=== PATIENT | female | born 1950 | race Caucasian/White ===

== ENCOUNTER → 2016-06-11 16:12 | Outpatient (CLI) | payer MEDICARE ==
[~2016-06-11 16:12] MED LIST: ANASTROZOLE1 MG PO; ASPIRIN EC81 M1 PO; BUSPAR5 MG PO; COLACE100 MG PO; DIFLUCAN100 MG PO; EFFEXOR XR150 MG PO; EFFEXOR XR75 MG PO; ELIQUIS5 MG PO; HYDROCODON-ACE1 EAC7 PO; MIRALAX17 GM PO; NEURONTIN 300300 MG PO; PROPRANOLOL HCL20 MG PO; SYNTHROID137 MCG PO
[2016-07-01 12:01] VITALS: BMI 36.1
== END | disposition home or self-care (01) ==
LOC: D.MRI 16:12
DX: M54.5 Low back pain (principal)

== ENCOUNTER 2016-06-13 18:32 | Inpatient (IN) | payer MEDICARE ==
[~2016-06-13] VITALS: Ht 165.1 cm; Wt 98.6 kg
--- NOTE | ~2016-06-13 | HEMODYNAMI ---
PATIENT:MICHELLE WALTER MEDICAL RECORD: [id number] : 52 LOCATION:[facility] ADMISSION DATE: 06/13/16 Generatedon:06/14/201616:38 Patient name: MICHELLE WALTER Patient #: [id number] SSN: : 1950 Date of study: 06/14/2016 Page: Of Hemodynamic Procedure Report Patient Data Patient Demographics Procedure consent was obtained First Name: MICHELLE Gender: Female Last Name: JOSE ANGEL : 1950 [facility] Initial: Krunal Age: 65 year(s) Patient #: [id number] Race: Unknown Additional ID: [id number] Contact details [address]: [address] [place] [address] [address] State: [place] City: [place] Zip code: [address] Admission Admission Data Admission Date: 06/13/2016 Admission Time: 18:32 Room #: [facility] Procedure Procedure Types Cath Procedure Peripheral Cath Diagnostic Procedure Miscellaneous Procedure Description Procedure Date Procedure Date: 06/14/2016 Procedure Start Time: 15:06 Procedure Staff Name Function Sumit Oakley MD Performing Physician Sophia Veloz RT Scrub Camille Mejia RN Nurse Willard Lawrence RT Monitor Procedure Data Cath Procedure Fluoroscopy Diagnostic fluoroscopy Total fluoroscopy Time: time: 112.7 min 112.7 min Diagnostic fluoroscopy Total fluoroscopy dose: dose: 466.29 mGy 466.29 mGy Contrast Material Contrast Material Type Amount (ml) Isovue 300 122 Entry Location Entry Primary Successful Side Size Upsize 1 Upsize Entry Closure Gonsales ccessful Closure Location (Fr) (Fr) 2 (Fr) Remarks Device Remarks Femoral Right 5 Fr 6 Fr artery Mid-Length Diagnostic catheters Device Type Used For End Catheter Placement Merit ULTRA BOLUS FLUSH 5Fr 65CM catheter Procedure Medications Medication Administration Route Dosage Oxygen NC 3 l/min Heparin Flush Bag added to field 3 bags (1000units/500ml NS) Lidocaine 1% added to field 20 Versed I.V. 2 mg Fentanyl I.V. 50 mcg Heparin Bolus I.V. 5000 units Versed I.V. 1 mg Fentanyl I.V. 50 mcg Fentanyl I.V. 50 mcg Fentanyl I.V. 50 mcg Versed I.V. 1 mg TPA 10 Versed I.V. 1 mg Fentanyl I.V. 50 mcg TPA 1 mg/hr Heparin Drip 500 units/hr (88673hmzin/250 D5W) Versed I.V. 1 mg Fentanyl I.V. 50 mcg TPA 4 mg Hemodynamics Rest Heart Rate: 76 (bpm) Snapshots Pre Cath Intra NCS Post Cath Vital Signs Time Heart Resp SPO2 NIBP (mmHg) Rhythm Pain Status Sedation Rate (ipm) (%) Level (bpm) 15:00:40 83 37 96 156/74(122) NSR 9 (11) , 10(A) Excruciating unbearable 15:05:04 78 16 99 144/86(120) NSR 3 (11) , 10(A) Tolerable 15:09:24 80 13 98 135/77(105) NSR 3 (11) , 10(A) Tolerable 15:13:45 83 14 95 120/76(93) NSR 0 (11) , No 9(A) pain 15:18:02 82 14 96 120/72(95) NSR 0 (11) , No 9(A) pain 15:22:23 83 14 97 115/72(88) NSR 0 (11) , No 9(A) pain 15:26:39 83 17 99 123/83(96) NSR 0 (11) , No 9(A) pain 15:30:59 82 13 100 128/77(91) NSR 0 (11) , No 9(A) pain 15:35:23 82 14 99 125/73(90) NSR 0 (11) , No 9(A) pain 15:40:22 83 17 99 124/90(97) NSR 0 (11) , No 9(A) pain 15:44:50 81 17 100 127/50(106) NSR 0 (11) , No 9(A) pain 15:49:09 79 16 100 125/84(114) NSR 0 (11) , No 9(A) pain 15:53:26 75 16 100 143/83(117) NSR 0 (11) , No 9(A) pain 15:57:51 77 17 99 145/86(123) NSR 0 (11) , No 9(A) pain 16:02:21 76 17 99 141/75(120) NSR 0 (11) , No 9(A) pain 16:06:43 77 16 100 154/89(118) NSR 0 (11) , No 9(A) pain 16:11:42 83 14 100 Measuring NSR 0 (11) , No 9(A) pain 16:12:36 79 18 100 155/86(127) NSR 0 (11) , No 9(A) pain 16:17:04 75 17 96 137/95(123) NSR 0 (11) , No 9(A) pain 16:21:24 79 14 98 152/93(129) NSR 0 (11) , No 9(A) pain 16:25:56 78 14 98 133/77(121) NSR 0 (11) , No 9(A) pain 16:30:17 80 18 98 144/94(108) NSR 0 (11) , No 9(A) pain 16:38:16 No Cuff NSR 0 (11) , No 9(A) pain Medications Time Medication Route Dose Verified Delivered Reason Notes Effectiveness by by 15:04:13 Oxygen NC 3 l/min Camille Camille Per protocol King TAMMY Mejia RN 15:04:26 Heparin Flush added to 3 bags Camille Camille used for Bag field King TAMMY Mejia RN procedure (1000units/500ml NS) 15:04:37 Lidocaine 1% added to 20ml vial Camille Camille for local field King TAMMY Mejia RN anesthetic 15:04:52 Versed I.V. 2 mg Camille Camille for sedation King TAMMY Mejia RN 15:04:59 Fentanyl I.V. 50 mcg Camille Camille for right yohana t Roberto TAMMY Mejia RN pain 15:09:27 Fentanyl I.V. 50 mcg Camille Camille for right yohana t King TAMMY Mejia RN pain 15:17:45 Heparin Bolus I.V. 5000 units Camille Camille for King TAMMY Mejia RN anticoagulation 15:17:52 Versed I.V. 1 mg Camille Camille for sedation King TAMMY Mejia RN 15:17:56 Fentanyl I.V. 50 mcg Camille Camille for sedation King TAMMY Mejia RN 15:30:21 Fentanyl I.V. 50 mcg Camille Camille for sedation King TAMMY Mejia RN 15:38:53 Versed I.V. 1 mg Camille Camille for sedation King TAMMY Mejia RN 15:54:40 TPA angiojet 10mg/100mlNS Camille Sumit used for Roberto TAMMY Oakley MD procedure 16:13:27 Versed I.V. 1 mg Camille Sumit for sedation King TAMMY Oakley MD 16:13:31 Fentanyl I.V. 50 mcg Camille Sumit for right yohana t King TAMMY Oakley MD pain 16:14:35 TPA via 4mg Camille Sumit used for catheter King TAMMY Oakley MD procedure right leg 16:22:12 Versed I.V. 1 mg Camille Camille for sedation King TAMMY Mejia RN 16:22:16 Fentanyl I.V. 50 mcg Camille Camille for right yohana t King TAMMY Mejia RN pain 16:28:03 TPA via 1mg/hr Camille Camille used for catheter King TAMMY Mejia studio technician right leg 16:28:35 Heparin Drip via left 500units/hr Camille Camille used for ([id number]/250 leg King TAMMY Mejia studio technician D5W) sheath Procedure Log Time Note 14:46:51 Willard Lawrence RT (R) (CV) sent for patient. Start room use. 14:47:02 Time tracking: Call back 14:47:07 Plan of Care:Hemodynamics will remain stable., Cardiac rhythm will remain stable., Comfort level will be maintained., Respiratory function will remain adequate., Patient/ family verbilizes understanding of procedure., Procedure tolerated without complication., Recovers from procedure without complications.. 14:47:23 Patient received from Med II to Alert and oriented. Tansferred to table in Supine position. 14:47:25 Correct patient and procedure confirmed by team. 14:47:26 ECG and BP/O2 sat monitors applied to patient. 14:47:27 Signed procedure consent form obtained from patient. 14:47:29 Full Disclosure recording started 14:47:29 - 14:47:36 H&P Date Dictated: 06/14/2016 Within 30 days and on chart.. 14:47:37 Pre-procedure instructions explained to patient. 14:47:37 Pre-op teaching completed and patient verbalized understanding. 14:47:39 Family in waiting room. 14:47:42 Patient NPO since Midnight. 14:47:44 Is the patient allergic to Iodine/contrast media? No. 14:47:48 Is patient on blood thinner?No 14:47:49 Patient diabetic? No. 14:47:50 - 14:47:51 ----Pre-sedation anethsthesia assessment.---- 14:47:54 Previous problem with sedation/anesthesia? No ? 14:47:55 Snore? Yes 14:47:56 Sleep apnea? No 14:47:58 Deviated septum? No 14:48:00 Opens mouth fully? No 14:48:03 Sticks out tongue? Yes 14:48:06 Airway obstruction? No ? 14:48:13 Dentures? No ? 14:48:22 Pre procedure: right dorsailis pedis pulse 0-Absent 14:48:27 Pre procedure: right posterior tibial pulse Doppler 14:48:31 Pre procedure: left dorsailis pedis pulse Doppler 14:48:35 Pre procedure: left posterior tibial pulse Doppler 14:48:40 Patient pain scale 0/10 no pain. 14:48:46 IV patent on arrival in right hand with 0.9% NaCl at [facility]. 14:48:51 Alarms reviewed by R. N. 14:48:51 Sharps counted by scrub and verified by R.N. 14:48:56 Left groin area was prepped with chlora-prep and draped in sterile fashion 14:49:01 Use device set IR Diagnostic 14:49:02 Bag Decanter opened to sterile field. 14:49:02 Sterile Angiographic Pack opened to sterile field. 14:54:38 Vital chart was started 15:01:53 Baseline sample Acquired. 15:01:58 Rhythm: sinus rhythm 15:03:29 Physician arrived 15:03:29 --------ALL STOP TIME OUT------ 15:03:30 Final Timeout: patient, procedure, and site verified with staff and physician. All members of the team are in agreement. 15:03:33 Left groin site verified by team. 15:03:39 Physical assessment completed. ASA score P 3 - A patient with severe systemic disease as per Sumit Oakley MD. 15:03:43 Sedation plan: IV Moderate Sedation Versed, Fentanyl 15:04:13 Oxygen 3 l/min NC was given by Camille Mejia RN; Per protocol; 15:04:26 Heparin Flush Bag (1000units/500ml NS) 3 bags added to field was given by Camille Mejia RN; used for procedure; 15:04:37 Lidocaine 1% 20ml vial added to field was given by Camille Mejia RN; for local anesthetic; 15:04:52 Versed 2 mg I.V. was given by Camille Mejia RN; for sedation; 15:04:59 Fentanyl 50 mcg I.V. was given by Camille Mejia RN; for right foot pain; 15:06:32 Procedure started. 15:06:43 Local anesthetic to left femerol artery with Lidocaine 1% by Willard Lawrence RT (R) (CV).INITIAL ACCESS ONLY 15:06:53 A 5 Fr sheath was inserted into the Right Femoral artery 15:07:05 St Drew 5FR Sheath opened to sterile field. 15:07:06 Micropuncture VSI 4FR kit opened to sterile field. 15:07:07 Cook DOC .035 guide wire opened to sterile field. 15:07:13 A [employer] ULTRA BOLUS FLUSH 5Fr 65CM catheter was advanced over the wire and used for . 15:09:27 Fentanyl 50 mcg I.V. was given by Camille Mejia RN; for right foot pain; 15:15:24 Cook SINGH 260 guide wire opened to sterile field. 15:15:25 Cook SHELTONRUSTACI 260 .035 glide wire opened to sterile field. 15:17:45 Heparin Bolus 5000 units I.V. was given by Camille Mejia RN; for anticoagulation; 15:17:52 Versed 1 mg I.V. was given by Camille Roberto RN; for sedation; 15:17:56 Fentanyl 50 mcg I.V. was given by Camille Mejia RN; for sedation; 15:20:06 TUBING, CONTRAST INJCTN HI PRES opened to sterile field. 15:27:31 Sheath upsized to a 6 Fr Mid-Length. 15:27:34 Terumo 6Fr Horton Destination Sheath opened to sterile field. 15:30:21 Fentanyl 50 mcg I.V. was given by Camille Mejia RN; for sedation; 15:34:27 Terumo ANGLE 260cm glide wire opened to sterile field. 15:36:05 Terumo TORQUE DEVICE PLASTIC .038 opened to sterile field. 15:38:53 Versed 1 mg I.V. was given by Camille Mejia RN; for sedation; 15:39:02 CXI SUPPORT .035 135 CM STR catheter opened to sterile field. 15:46:14 Cook Bentson 260cm 0.035 guide wire opened to sterile field. 15:47:09 Angiojet Solent Omni 6Fr Catheter opened to sterile field. 15:54:40 TPA 10mg/100mlNS angiojet was given by Sumit Oakley MD; used for procedure; 16:00:44 CRAGG-MIRYAM 30cm infusion catheter opened to sterile field. 16:00:48 CRAGG-MIRYAM 10cm infusion catheter opened to sterile field. 16:02:09 STOPCOCK, 1-WAY MALE ROTATE LL C opened to sterile field. 16:02:10 Copilot Bleedback Control Valve opened to sterile field. 16:03:43 [place] Sci Choice PT Floppy J 300cm 0.014 guide wi opened to sterile field. 16:12:33 Procedure ended.(Physican Out) 16:13:27 Versed 1 mg I.V. was given by Sumit Oakley MD; for sedation; 16:13:31 Fentanyl 50 mcg I.V. was given by Sumit Oakley MD; for right foot pain ; 16:13:44 Fluoroscopy time 112.70 minutes. 16:14:11 Fluoroscopy dose: 466.29 mGy 16:14:11 Flurop Dose total: 466.29 16:14:35 TPA 4mg via catheter right leg was given by Sumit Oakley MD; used for procedure; 16:14:39 Contrast amount:Isovue 300 122ml. 16:14:41 Sharps counted by scrub and verified by R.N. 16:14:42 Insertion/operative site no bleeding no hematoma. 16:14:50 Post-op/insertion site Left Femoral artery dressed using a 4 x 4 and Tegaderm. 16:14:54 Post left femerol artery:stable 16:14:56 Post Procedure Pulses reassessed and unchanged 16:15:03 Post-procedure physical assessment completed. ASA score P 3 - A patient with severe systemic disease as per Sumit Oakley MD. 16:22:12 Versed 1 mg I.V. was given by Camille Mejia RN; for sedation; 16:22:16 Fentanyl 50 mcg I.V. was given by Camille Mejia RN; for right foot pain; 16:28:03 TPA 1mg/hr via catheter right leg was given by Camille Mejia RN; used for procedure; 16:28:35 Heparin Drip (78369heyoi/250 D5W) 500units/hr via left leg sheath was given by Camille Mejia RN; used for procedure; 16:30:33 Post procedure instruction explained to patient.Patient verbalizes understanding. 16:30:34 Procedure and supply charges have been captured, reviewed, submitted an d are correct. 16:38:07 Report given to ICU. 16:38:10 Patient transfered to ICU with Bed. 16:38:56 Vital chart was stopped Device Usage Item Name Manufacture Quantity Catalog Number Hospital Part Current [facility] Lot# / Charge Number Stock Stock Serial# Code Bag Decanter Microtek 1 [id number] 37074 880880 5 Medical Inc. Sterile Cardinal 1 [id number] 162288 984494 [address] Drew [address] [facility] Drew 1 [id number] 976572 428073 5 [id number] Sheath Micropuncture VSI VASCULAR 1 [id number] 730289 314995 5 VSI 4FR kit SOLUTIONS Cook DOC .035 Cook Medical 1 [id number] 364876 585692 5 [id number] guide wire Merit ULTRA Merit 1 [id number] 398036 296027 5 BOLUS FLUSH Medical 5Fr 65CM catheter Cook SINGH 260 Cook Medical 1 [id number] 844759 240123 5 [id number] guide wire Cook [place] [facility] 1 [id number] 477745 611904 [id number] 260 .035 glide wire TUBING, Merit 1 [id number] 463023 644387 551635 5 CONTRAST Medical INJCTN HI PRES Terumo 6Fr Terumo 1 RSR01 660283 68574 113570 5 Horton Destination Sheath Terumo ANGLE Terumo 1 [id number] 563477 473400 151057 5 260cm glide wire Terumo TORQUE [place] 1 TD01 015562 216887 157994 5 DEVICE PLASTIC Scientific .038 CXI SUPPORT [facility] 1 [id number] 273072 380528 5 [id number] .035 135 CM STR catheter Cook Savoyson [facility] 1 Q10546 872425 147168 369955 4 1955400 260cm 0.035 guide wire Angiojet [place] 1 [id number] 999914 362479 720774 1 Solent Omni Scientific 6Fr Catheter CRAGG-MIRYAM Ev3 1 99804-66 372395 469528 5 30cm infusion catheter CRAGG-MIRYAM Ev3 1 06942-41 495216 191850 5 10cm infusion catheter STOPCOCK, Narrable 1 [id number] 484920 43093 037830 5 [id number] 1-WAY MALE ROTATE LL C Copilot Ni 1 [id number] 797158 022489 493131 5 Bleedback Vascular Control Valve [place] Sci [place] 1 [id number] 168316 344932 208590 5 [id number] Choice PT Scientific Floppy J 300cm 0.014 guide wi Signature Audit [place] Stage Time Signature Unsigned Intra-Procedure 06/14/2016 Willard 4:38:53 PM Michelleield RT (R) (CV) Signatures Monitor : Willard Signature : Howard RT Date : Time : [facility] [address] [place] [address]
--- NOTE | ~2016-06-13 | HEMODYNAMI ---
PATIENT:MICHELLE WALTER MEDICAL RECORD: [id number] : 52 LOCATION:[place] [address] ADMISSION DATE: 06/13/16 Generatedon:06/16/201616:10 Patient name: MICHELLE WALTER Patient #: [id number] SSN: : 1950 Date of study: 06/16/2016 Page: Of Hemodynamic Procedure Report Patient Data Patient Demographics Procedure consent was obtained First Name: MICHELLE Gender: Female Last Name: JOSE ANGEL : 1950 [facility] Initial: Krunal Age: 65 year(s) Patient #: [id number] Race: Unknown Additional ID: [id number] Contact details Address: [address] [place] [address] [address] State: [place] City: [place] Zip code: [address] Admission Admission Data Admission Date: 06/13/2016 Admission Time: 18:32 Room #: [facility] Weight (lbs.): 226 Weight (kg.): 102.51 Procedure Procedure Types Cath Procedure Peripheral Cath Diagnostic Procedure Cath Peripheral Procedure Description Procedure Date Procedure Date: 06/16/2016 Procedure Start Time: 14:58 Procedure Staff Name Function Kenia Ayoub RT Fiscal Accounting Clerk Kenia Ayoub RT Monitor Willard Lawrence RT Scrub Primitivo Villa MD Performing Physician Sophia Skaggs RN Nurse Procedure Data Cath Procedure Fluoroscopy Diagnostic fluoroscopy Total fluoroscopy Time: time: 3.53 min 3.53 min Contrast Material Contrast Material Type Amount (ml) Isovue 300 95 Entry Location Entry Primary Successful Side Size Upsize Upsize Entry Closure Succ essful Closure Location (Fr) 1 (Fr) 2 (Fr) Remarks Device Remarks Femoral Left Angio-VIP artery 6Fr Procedure Medications Medication Administration Route Dosage Heparin Bolus I.V. 3000 units Versed I.V. 0.5 mg Fentanyl I.V. 25 mcg Versed I.V. 0.5 mg Fentanyl I.V. 25 mcg Nitroglycerin IC/IA I.C. 300 mcg Ancef (1Gm/50ml NS) I.V.P.B 1 g Heparin Bolus I.V. 4000 units Hemodynamics Rest Heart Rate: 86 (bpm) Snapshots Pre Cath Intra NCS Post Cath Vital Signs Time Heart Resp SPO2 NIBP (mmHg) Rhythm Pain Sedation Rate (ipm) (%) Status Level (bpm) 14:06:31 79 19 98 122/62(78) NSR 0 (11) 10(A) , No pain 14:10:42 80 16 98 114/70(92) NSR 0 (11) 10(A) , No pain 14:14:47 81 17 97 108/69(94) NSR 0 (11) 10(A) , No pain 14:18:51 80 17 96 117/67(85) NSR 0 (11) 10(A) , No pain 14:22:59 80 16 97 113/70(82) NSR 0 (11) 10(A) , No pain 14:27:05 80 16 98 112/70(78) NSR 0 (11) 10(A) , No pain 14:31:11 81 16 98 97/70(90) NSR 0 (11) 10(A) , No pain 14:35:49 80 17 99 122/77(85) NSR 0 (11) 10(A) , No pain 14:39:57 80 17 98 125/76(100) NSR 0 (11) 10(A) , No pain 14:44:03 80 17 99 120/76(96) NSR 0 (11) 10(A) , No pain 14:48:10 80 18 99 131/69(96) NSR 0 (11) 10(A) , No pain 14:52:18 81 17 99 132/80(102) NSR 0 (11) 10(A) , No pain 14:56:26 80 16 100 124/81(102) NSR 0 (11) 10(A) , No pain 15:00:32 81 17 100 126/80(113) NSR 0 (11) 10(A) , No pain 15:04:42 80 18 99 124/73(91) NSR 0 (11) 9(A) , No pain 15:08:50 80 17 100 119/76(97) NSR 0 (11) 9(A) , No pain 15:12:53 82 18 99 125/77(99) NSR 0 (11) 9(A) , No pain 15:16:59 81 19 99 125/77(101) NSR 0 (11) 9(A) , No pain 15:21:07 82 18 100 123/77(103) NSR 0 (11) 9(A) , No pain 15:25:13 81 18 98 128/78(94) NSR 0 (11) 9(A) , No pain 15:29:16 81 18 100 130/85(104) NSR 0 (11) 9(A) , No pain 15:33:24 83 18 100 130/78(108) NSR 0 (11) 9(A) , No pain 15:37:36 86 19 97 128/69(116) NSR 0 (11) 9(A) , No pain 15:41:42 84 19 98 121/81(97) NSR 0 (11) 9(A) , No pain 15:45:46 82 20 99 131/78(96) NSR 0 (11) 9(A) , No pain 15:50:30 81 17 100 133/80(104) NSR 0 (11) 9(A) , No pain 15:54:40 83 18 99 144/77(107) NSR 0 (11) 9(A) , No pain 15:59:49 80 12 98 140/79(113) NSR 0 (11) 9(A) , No pain 16:04:00 83 8 145/83(113) NSR 0 (11) 9(A) , No pain 16:08:11 80 8 137/83(100) NSR 0 (11) 9(A) , No pain Medications Time Medication Route Dose Verified Delivered Reason Notes Eff ectiveness by by 14:22:32 Heparin Bolus I.V. 3000 Sophia Sophia Per units Sharifa Skaggs physician RN RN 14:59:56 Versed I.V. 0.5 Sophia Sophia for sedation mg Sharifa Sharifa RN RN 15:00:05 Fentanyl I.V. 25 Sophia Sophia for sedation mcg Sharifa Sharifa MUNOZ RN 15:06:00 Versed I.V. 0.5 Sophia Sophia for sedation mg Sharifa Sharifa MUNOZ RN 15:06:04 Fentanyl I.V. 25 Sophia Sophia for sedation mcg Sharifa Skaggs RN RN 15:32:41 Nitroglycerin I.C. 300 Primitivo Langford for IC/IA mcg Allen young MD, MD 15:47:27 Ancef I.V.P.B 1 g Sophia Sophia Per (1Gm/50ml NS) Sharifa price RN RN 16:00:30 Heparin Bolus I.V. [address] [facility] [facility] 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 13:57:59 Patient received from ICU to [facility] 3 Alert and oriented. Tansferred to table in Supine position. 13:58:02 Correct patient and procedure confirmed by team. 13:58:04 Signed procedure consent form obtained from patient. 13:58:06 - 13:58:12 H&P Date Dictated: 06/16/2016 Within 30 days and on chart.. 13:58:17 Pre-procedure instructions explained to patient. 13:58:18 Pre-op teaching completed and patient verbalized understanding. 13:58:21 Family in waiting room. 13:58:25 Patient NPO since Midnight. 13:58:30 Is the patient allergic to Iodine/contrast media? No. 13:58:34 Is patient on blood thinner?Yes 13:58:37 Patient diabetic? No. 13:59:09 ----Pre-sedation anethsthesia assessment.---- 13:59:13 Previous problem with sedation/anesthesia? No ? 13:59:16 Snore? Yes 13:59:18 Sleep apnea? No 13:59:21 Deviated septum? No 13:59:22 Opens mouth fully? Yes 13:59:24 Sticks out tongue? Yes 13:59:27 Airway obstruction? No ? 13:59:31 Dentures? No ? 14:02:12 Pre procedure: left dorsailis pedis pulse Doppler 14:02:17 Pre procedure: left posterior tibial pulse Doppler 14:02:28 Pre procedure: right posterior tibial pulse Doppler 14:02:33 Pre procedure: right dorsailis pedis pulse 0-Absent 14:02:49 IV patent on arrival in right picc line with 0.9% NaCl at [facility]. 14:03:32 Left groin area was prepped with betadine and draped in sterile fashion 14:03:38 - 14:04:11 ECG and BP/O2 sat monitors applied to patient. 14:04:16 Vital chart was started 14:04:23 Baseline sample Acquired. 14:04:27 Full Disclosure recording started 14:04:28 - 14:04:37 Use device set IR Diagnostic 14:04:39 Sterile Angiographic Pack opened to sterile field. 14:04:41 Bag Decanter opened to sterile field. 14:04:52 - 14:22:32 Heparin Bolus 3000 units I.V. was given by Sophia Skaggs RN; Per physician; 14:55:25 Physician arrived 14:58:03 --------ALL STOP TIME OUT------ 14:58:04 Final Timeout: patient, procedure, and site verified with staff and physician. All members of the team are in agreement. 14:58:22 Sedation plan: IV Moderate Sedation Versed, Fentanyl 14:58:30 Physical assessment completed. ASA score P 3 - A patient with severe systemic disease as per Primitivo Villa MD. 14:58:36 Procedure started. 14:59:56 Versed 0.5 mg I.V. was given by Sophia Skaggs RN; for sedation; 15:00:05 Fentanyl 25 mcg I.V. was given by Sophia Skaggs RN; for sedation; 15:05:52 CXI SUPPORT .035 135 CM STR catheter opened to sterile field. 15:05:[address] .035 glide wire opened to sterile field. 15:06:00 Versed 0.5 mg I.V. was given by Sophia Skaggs RN; for sedation; 15:06:04 Fentanyl 25 mcg I.V. was given by Sophia Skaggs RN; for sedation; 15:12:11 [place] Sci Choice PT Floppy J 300cm 0.014 guide wi opened to sterile field. 15:17:16 CXI SUPPORT .018 150CM STR catheter opened to sterile field. 15:23:13 [place] Sci Choice PT Floppy J 300cm 0.014 guide wi opened to sterile field. 15:32:41 Nitroglycerin IC/IA 300 mcg I.C. was given by Primitivo Villa MD; for vasodilation; 15:41:20 Inflation number: 1 A Saber 2.5 X 100 X 150 balloon was prepped and advanced across the Undefined1, then inflated to 18 STEPHANIE for 0:09 (min:sec). 15:41:43 Merit INFLATION SYRINGE opened to sterile field. 15:47:27 Ancef (1Gm/50ml NS) 1 g I.V.P.B was given by Sophia Skaggs RN; Per physician; 15:52:09 Cook RLJ EntertainmentSON 145cm guide wire opened to sterile field. 15:56:25 ANGIOSEAL-VIP PLUS 6 FR opened to sterile field. 15:56:59 Sheath removed intact; hemostasis achieved with Angio-VIP 6Fr to the Left Femoral artery. 15:56:59 A sheath was inserted into the Left Femoral artery 15:57:04 Procedure ended.(Physican Out) 15:57:25 Fluoroscopy time 03.53 minutes. 15:57:34 Contrast amount:Isovue 300 95ml. 15:57:40 Procedure and supply charges have been captured, reviewed, submitted an d are correct. 16:00:30 Heparin Bolus 4000 units I.V. was given by Sophia Skaggs RN; Per physician; 16:10:29 Vital chart was stopped Intervention Summary Intervention Notes Time ActionType Lesion and Equipment Action# Pressure Duration Attributes Used 15:41:20 Inflate Undefined1 Saber 2.5 1 18 00:09 balloon X 100 X 150 balloon Device Usage Item Name Manufacture Quantity Catalog Number Hospital Part Current Min imal Lot# / Charge Number Stock Stock Serial# Code Sterile Cardinal 1 [id number] [id number] 5 Angiographic Health Pack Bag Decanter Microtek 1 [id number] 12212 028732 5 Medical Inc. CXI SUPPORT Cook Medical 1 [id number] 249852 301129 5 [id number] .035 135 CM STR catheter Cook Punchd Medical 1 [id number] 155745 687153 5 [id number] [facility] 260 .035 glide wire [place] Sci [place] 2 [id number] 277916 598540 071980 5 Choice PT Scientific Floppy J 300cm 0.014 guide wi CXI SUPPORT Cook Medical 1 [id number] 968287 987178 5 .018 150CM STR catheter Saber 2.5 X Cardinal 1 [id number] 543443 608928 5 100 X 150 Health balloon [facility] Medtronic 1 [id number] 280740 38105 381694 5 INFLATION SYRINGE Cook [facility] Cook Medical 1 [id number] 848110 936854 5 [id number] 145cm guide wire ANGIOSEAL-VIP [facility] 1 [id number] 501111 553061 5 PLUS 6 FR Signature Audit [place] Stage Time Signature Unsigned Intra-Procedure 06/16/2016 Kenia Ayoub 4:10:26 PM RT(R) Signatures Monitor : Kenia Ayoub RT Signature : Date : Time : [facility] [address] [place] [address]
--- NOTE | ~2016-06-13 | HEMODYNAMI ---
PATIENT:MICHELLE WALTER MEDICAL RECORD: [id number] : 52 LOCATION:[place] [address] ADMISSION DATE: 06/13/16 Generatedon:06/15/201610:15 Patient name: MICHELLE WALTER Patient #: [id number] SSN: : 1950 Date of study: 06/15/2016 Page: Of Hemodynamic Procedure Report Patient Data Patient Demographics Procedure consent was obtained First Name: MICHELLE Gender: Female Last Name: JOSE ANGEL : 1950 [facility] Initial: Krunal Age: 65 year(s) Patient #: [id number] Race: Unknown Additional ID: [id number] Contact details Address: [address] [place] [address] [place] State: [place] City: [place] Zip code: [address] Admission Admission Data Admission Date: 06/13/2016 Admission Time: 18:32 Room #: [facility] Procedure Procedure Types Cath Procedure Peripheral Cath Diagnostic Procedure Miscellaneous Procedure Description Procedure Date Procedure Date: 06/15/2016 Procedure Start Time: 9:01 Procedure Staff Name Function Sumit Oakley MD Performing Physician Sophia Veloz RT Scrub Camille Mejia RN Nurse Willard Lawrence RT Monitor Procedure Data Cath Procedure Fluoroscopy Diagnostic fluoroscopy Total fluoroscopy Time: 8.7 time: 8.7 min min Diagnostic fluoroscopy Total fluoroscopy dose: dose: 83.03 mGy 83.03 mGy Contrast Material Contrast Material Type Amount (ml) Visipaque 270 21 Procedure Medications Medication Administration Route Dosage Oxygen NC 3 l/min Heparin Flush Bag added to field 2 bags (1000units/500ml NS) Lidocaine 1% added to field 20 Versed I.V. 1 mg Fentanyl I.V. 50 mcg Versed I.V. 1 mg Fentanyl I.V. 50 mcg Heparin Bolus I.V. 3000 units Nitroglycerin IC/IA I.A. 300 mcg Nitroglycerin IC/IA I.A. 200 mcg Fentanyl I.V. 50 mcg Versed I.V. 1 mg Nitroglycerin IC/IA I.A. 200 mcg Fentanyl I.V. 50 mcg TPA 10 mg Versed I.V. 1 mg Nitroglycerin IC/IA I.A. 50 mcg Fentanyl I.V. 50 mcg Activase(12.5mg/250 10 ml/hr NS) Activase(12.5mg/250 10 ml/hr NS) Fentanyl I.V. 50 mcg Hemodynamics Rest Pre Cath Intra NCS Post Cath Vital Signs Time Heart Resp SPO2 NIBP (mmHg) Rhythm Pain Sedation Rate (ipm) (%) Status Level (bpm) 8:50:59 98 133/80(98) NSR 3 (11) , 10(A) Tolerable 8:55:13 80 10 99 127/80(103) NSR 3 (11) , 10(A) Tolerable 8:59:25 82 10 97 127/78(105) NSR 3 (11) , 10(A) Tolerable 9:03:35 84 9 95 112/74(89) NSR 3 (11) , 10(A) Tolerable 9:07:43 85 10 94 123/79(97) NSR 0 (11) , 9(A) No pain 9:12:01 89 11 94 110/62(80) NSR 0 (11) , 9(A) No pain 9:16:13 89 11 95 117/65(93) NSR 0 (11) , 9(A) No pain 9:20:25 85 9 94 101/71(80) NSR 0 (11) , 9(A) No pain 9:24:31 85 10 96 109/70(89) NSR 0 (11) , 9(A) No pain 9:28:40 86 11 94 108/73(84) NSR 0 (11) , 9(A) No pain 9:32:48 84 12 95 117/74(103) NSR 0 (11) , 10(A) No pain 9:37:02 86 9 95 99/63(87) NSR 0 (11) , 9(A) No pain 9:41:06 85 10 94 110/78(87) NSR 0 (11) , 9(A) No pain 9:46:01 87 12 93 116/77(98) NSR 0 (11) , 10(A) No pain 9:50:13 85 13 96 121/70(104) NSR 0 (11) , 9(A) No pain 9:54:21 83 13 94 119/72(93) NSR 0 (11) , 9(A) No pain 9:58:31 86 12 96 113/74(92) NSR 0 (11) , 9(A) No pain 10:02:40 83 11 94 108/68(84) NSR 0 (11) , 9(A) No pain 10:06:50 84 11 96 101/64(81) NSR 0 (11) , 9(A) No pain 10:11:00 84 11 96 111/61(80) NSR 0 (11) , 10(A) No pain 10:15:10 83 9 92/62(81) NSR 0 (11) , 10(A) No pain Medications Time Medication Route Dose Verified Delivered Reason Notes Effectiveness by by 8:54:39 Oxygen NC 3 l/min Camille Camille Per protocol Roberto TAMMY Roberto TAMMY 8:54:54 Heparin Flush Bag added to 2 bags Camille Camille used for (1000units/500ml field King TAMMY Mejia hangersmith NS) 8:55:05 Lidocaine 1% added to 20ml Camille Camille for local field vial King TAMMY Mejia TAMMY anesthetic 8:55:14 Versed I.V. 1 mg Camille Camille for sedation King TAMMY Mejia TAMMY 8:55:21 Fentanyl I.V. 50 mcg Camille Camille for sedation King TAMMY Mejia TAMMY 9:02:04 Versed I.V. 1 mg Camille Camille for sedation Roberto TAMMY Mejia RN 9:02:09 Fentanyl I.V. 50 mcg Camille Camille for sedation Roberto TAMMY Mejia RN 9:07:21 Heparin Bolus I.V. 3000 Camille Camille for units King TAMMY Mejia RN anticoagulation 9:08:46 Nitroglycerin IC/IA I.A. 300mcg Camille Sumit for King TAMMY Oakley MD vasodilation 9:15:00 Nitroglycerin IC/IA I.A. 200mcg Camille Sumit for King TAMMY Oakley MD vasodilation 9:16:36 Fentanyl I.V. 50 mcg Camille Camille for sedation Roberto TAMMY Mejia RN 9:24:08 Versed I.V. 1 mg Camille Camille for sedation Roberto TAMMY Mejia RN 9:33:18 Nitroglycerin IC/IA I.A. 200mcg Camille Sumit for [place] TAMMY Oakley MD vasodilation 9:33:26 Fentanyl I.V. 50 mcg Camille Camille for sedation King TAMMY Mejia RN 9:43:29 TPA via 10 mg Camille Sumit used for catheter King TAMMY Oakley MD procedure right leg 9:47:17 Versed I.V. 1 mg Camille Sumit for sedation King TAMMY Oakley MD 9:55:24 Nitroglycerin IC/IA I.A. 50mcg Camille Sumit for [place] TAMMY Oakley MD vasodilation 9:57:33 Fentanyl I.V. 50 mcg Camille Sumit for sedation King TAMMY Oakley MD 10:10:53 Activase(12.5mg/250 via 10ml/hr Camille Sumit used for NS) right King TAMMY Oakley MD procedure leg catheter 10:10:55 Activase(12.5mg/250 via 10ml/hr Camille Sumit used for NS) right King TAMMY Oakley MD procedure leg catheter 10:13:39 Fentanyl I.V. 50 mcg Camille Sumit for sedation King TAMMY Oakley MD Procedure Log Time Note 8:36:32 Willard Lawrence RT (R) (CV) sent for patient. Start room use. 8:36:43 Time tracking: Regular hours 8:36:50 Plan of Care:Hemodynamics will remain stable., Cardiac rhythm will remain stable., Comfort level will be maintained., Respiratory function will remain adequate., Patient/ family verbilizes understanding of procedure., Procedure tolerated without complication., Recovers from procedure without complications.. 8:36:56 Patient received from ICU to IR Alert and oriented. Tansferred to table in Supine position. 8:36:57 Correct patient and procedure confirmed by team. 8:36:59 Signed procedure consent form obtained from patient. 8:37:00 ECG and BP/O2 sat monitors applied to patient. 8:37:01 Full Disclosure recording started 8:37:02 - 8:37:07 H&P Date Dictated: 06/15/2016 Within 30 days and on chart.. 8:37:09 Pre-procedure instructions explained to patient. 8:37:09 Pre-op teaching completed and patient verbalized understanding. 8:37:12 Family in waiting room. 8:37:16 Patient NPO since Midnight. 8:37:21 Is the patient allergic to Iodine/contrast media? No. 8:37:25 Is patient on blood thinner?Yes 8:37:37 ACC The patient was administered the following blood thiners within the last 24 hours: ACCHeparin and TPA 8:38:46 Patient diabetic? No. 8:38:50 - 8:38:50 ----Pre-sedation anethsthesia assessment.---- 8:38:57 Previous problem with sedation/anesthesia? No ? 8:39:04 Snore? Yes 8:39:06 Sleep apnea? No 8:39:08 Deviated septum? No 8:39:09 Opens mouth fully? Yes 8:39:10 Sticks out tongue? Yes 8:39:12 Airway obstruction? No ? 8:39:13 Dentures? No ? 8:39:18 Pre procedure: right dorsailis pedis pulse 0-Absent 8:39:21 Pre procedure: left dorsailis pedis pulse Doppler 8:39:26 Pre procedure: right posterior tibial pulse Doppler 8:39:34 Pre procedure: left posterior tibial pulse Doppler 8:39:49 Patient pain scale 0/10 no pain. 8:39:55 IV patent on arrival in right hand with 0.9% NaCl at [facility]. 8:39:58 Alarms reviewed by R. N. 8:39:59 Sharps counted by scrub and verified by R.N. 8:40:04 Left groin area was prepped with betadine and draped in sterile fashion 8:40:09 Use device set IR Diagnostic 8:40:10 Bag Decanter opened to sterile field. 8:40:10 Sterile Angiographic Pack opened to sterile field. 8:41:20 Dr Oakley here. talking with patient and assessing foot. 8:49:56 Vital chart was started 8:54:39 Oxygen 3 l/min NC was given by Camille Mejia RN; Per protocol; 8:54:54 Heparin Flush Bag (1000units/500ml NS) 2 bags added to field was given by Camille Mejia RN; used for procedure; 8:55:05 Lidocaine 1% 20ml vial added to field was given by Camille Mejia RN; for local anesthetic; 8:55:14 Versed 1 mg I.V. was given by Camille Mejia RN; for sedation; 8:55:21 Fentanyl 50 mcg I.V. was given by Camille Mejia RN; for sedation; 9:00:24 --------ALL STOP TIME OUT------ 9:00:25 Final Timeout: patient, procedure, and site verified with staff and physician. All members of the team are in agreement. 9:00:30 Left groin site verified by team. 9:00:35 Physical assessment completed. ASA score P 3 - A patient with severe systemic disease as per Sumit Oakley MD. 9:00:46 Sedation plan: IV Moderate Sedation Versed, Fentanyl, Lidocaine 9:01:12 Procedure started. 9:01:19 Local anesthetic to left femerol artery with Lidocaine 1% by Sumit Oakley MD.INITIAL ACCESS ONLY 9:02:04 Versed 1 mg I.V. was given by Camille Mejia RN; for sedation; 9:02:09 Fentanyl 50 mcg I.V. was given by Camille Mejia RN; for sedation; 9:06:13 Cook Bentson 260cm 0.035 guide wire opened to sterile field. 9:07:21 Heparin Bolus 3000 units I.V. was given by Camille Mejia RN; for anticoagulation; 9:07:26 CXI SUPPORT .035 135 CM STR catheter opened to sterile field. 9:08:46 Nitroglycerin IC/IA 300mcg I.A. was given by Sumit Oakley MD; for vasodilation; 9:11:[address] .035 glide wire opened to sterile field. 9:11:41 Terumo TORQUE DEVICE PLASTIC .038 opened to sterile field. 9:15:00 Nitroglycerin IC/IA 200mcg I.A. was given by Sumit Oakley MD; for vasodilation; 9:16:36 Fentanyl 50 mcg I.V. was given by Camille Mejia RN; for sedation; 9:16:37 [place] Sci Choice PT Floppy J 300cm 0.014 guide wi opened to sterile field. 9:16:45 QuickCat Extraction catheter opened to sterile field. 9:24:08 Versed 1 mg I.V. was given by Camille Mejia RN; for sedation; 9:33:03 Trailblazer 0.035 catheter opened to sterile field. 9:33:18 Nitroglycerin IC/IA 200mcg I.A. was given by Sumit Oakley MD; for vasodilation; 9:33:26 Fentanyl 50 mcg I.V. was given by Camille Mejia RN; for sedation; 9:43:29 TPA 10 mg via catheter right leg was given by Sumit Oakley MD; used fo r procedure; 9:46:49 [place] Sci Choice PT Floppy J 300cm 0.014 guide wi opened to sterile field. 9:47:17 Versed 1 mg I.V. was given by Sumit Oakley MD; for sedation; 9:47:49 STOPCOCK, 1-WAY MALE ROTATE LL C opened to sterile field. 9:47:59 Copilot Bleedback Control Valve opened to sterile field. 9:48:11 CRAGG-MIRYAM 10cm infusion catheter opened to sterile field. 9:51:43 CRAGG-MIRYAM 10cm infusion catheter opened to sterile field. 9:55:24 Nitroglycerin IC/IA 50mcg I.A. was given by Sumit Oakley MD; for vasodilation; 9:57:33 Fentanyl 50 mcg I.V. was given by Sumit Oakley MD; for sedation; 9:58:43 Procedure ended.(Physican Out) 9:59:41 Fluoroscopy time 08.70 minutes. 9:59:52 Fluoroscopy dose: 83.03 mGy 9:59:52 Flurop Dose total: 83.03 9:59:58 Contrast amount:Visipaque 270 21ml. 10:00:00 Sharps counted by scrub and verified by R.N. 10:00:10 Insertion/operative site no bleeding no hematoma. 10:00:14 Post-op/insertion site Left Femoral artery dressed using a 4 x 4 and Tegaderm. 10:00:19 Post left femerol artery:stable 10:00:21 Post Procedure Pulses reassessed and unchanged 10:00:24 Post procedure rhythm: unchanged. 10:01:30 Procedure and supply charges have been captured, reviewed, submitted an d are correct. 10:10:53 Activase(12.5mg/250 NS) 10ml/hr via right leg catheter was given by Sumit Oakley MD; used for procedure; 10:10:55 Activase(12.5mg/250 NS) 10ml/hr via right leg catheter was given by Sumit Oakley MD; used for procedure; 10:11:51 activase infusion split between 2 ports via right leg catheter. 10:13:36 posterior tibial absent on rt.foot 10:13:39 Fentanyl 50 mcg I.V. was given by Sumit Oakley MD; for sedation; 10:14:39 Report given to ICU. 10:14:43 Patient transfered to ICU with Bed. 10:15:34 Vital chart was stopped Device Usage Item Name Manufacture Quantity Catalog Number Hospital Part Current [facility] Lot# / Charge Number Stock Stock Serial# Code Bag Decanter Microtek 1 [id number] 21359 236244 5 Medical Inc. Sterile Cardinal 1 [id number] 865144 611817 5 Angiographic Health Pack [facility] 1 [id number] 058638 045168 697533 4 [id number] 260cm 0.035 guide wire CXI SUPPORT [facility] 1 [id number] 073369 794642 5 [id number] .035 135 CM STR catheter [facility] 1 [id number] 774003 774608 5 [id number] ROADRUNNER 260 .035 glide wire Terumo TORQUE [place] 1 TD01 495723 418375 776648 5 DEVICE PLASTIC Scientific .038 [place] Sci [place] 2 [id number] 435702 842951 776586 5 [id number] Choice PT Scientific [id number] Floppy J 300cm 0.014 guide wi QuickCat [place] 1 77493-83 801962 925918 479447 5 Extraction catheter Trailblazer Medtronic 1 [id number] 20548 349370 5 0.035 catheter STOPCOCK, zumatek Medical 1 [id number] 558793 18890 190349 5 [id number] 1-WAY MALE ROTATE LL C Copilot Ni 1 [id number] 220682 353738 504641 5 Bleedback Vascular Control Valve [facility] 2 33187-46 924149 908277 5 10cm infusion catheter Signature Audit [place] Stage Time Signature Unsigned Intra-Procedure 06/15/2016 Willard 10:15:31 AM Howard RT (R) (CV) Signatures Monitor : Willard Signature : Howard RT Date : Time : [place] [id number] [facility]
--- NOTE | 2016-06-13 18:48 | NUR ---
PT ARRIVED VIA W/C FROM ADMISSIONS. NO DISTRESS NOTED. WILL CONTINUE TO MONITOR.
[2016-06-13] MEDS ORDERED: BUSPAR5 MG PO (19:44)
[2016-06-13] MEDS ORDERED: HYDROCODON-ACE1 EAC7 PO (19:45)
[2016-06-13] MEDS ORDERED: EFFEXOR XR75 MG PO (19:46)
[2016-06-13] MEDS ORDERED: EFFEXOR XR150 MG PO (19:46)
[2016-06-13] MEDS ORDERED: ANASTROZOLE1 MG PO (19:47)
[2016-06-13] MEDS ORDERED: NEURONTIN 300300 MG PO (19:48)
[2016-06-13] MEDS ORDERED: PROPRANOLOL HCL20 MG PO (19:48)
[2016-06-13] MEDS ORDERED: SYNTHROID137 MCG PO (19:50)
[2016-06-13 20:35] LABS: BASOPHILS 0.3 % (0.0-2.0); EOSINOPHILS 1.8 % (0-7); IMMATURE GRANULOCYTES 0.7 % (0-5); LYMPHOCYTES 11.6 % (15-50); MCH 32.1 pg (26.0-34.0); MCHC 32.4 g/dL (31.0-37.0); MCV 98.9 fL (80.0-100.0); MEAN PLATELET VOLUME 9.5 fL (7.4-10.4); MONOCYTES 4.8 % (2-11); NEUTROPHILS 80.8 % (40-80); PLATELET COUNT 253 10x3/uL (130-400); RBC 3.74 10x6/uL (4.00-5.40); RDW 13.7 % (11.5-14.5); WBC 19.5 10x3/uL (4.8-10.8)
[2016-06-13 20:40] LABS: ALBUMIN 2.7 g/dL (3.4-5.0); ALKALINE PHOSPHATASE 199 U/L (46-116); ALT (SGPT) 90 U/L (10-68); BILIRUBIN - TOTAL 0.37 mg/dL (0.2-1.3); CALC OSMOLALITY 281 mosm/kg (275-300); CALCIUM 8.6 mg/dL (8.5-10.1); CHLORIDE - SERUM 104 mmol/L (98-107); CREATININE - SERUM 0.8 mg/dL (0.6-1.3); GLUCOSE 108 mg/dL (74-106); POTASSIUM - SERUM 3.9 mmol/L (3.5-5.1); PROTEIN - SERUM 7.4 g/dL (6.4-8.2); SODIUM 141 mmol/L (136-145); UREA NITROGEN 13 mg/dL (7-18); eGFR NON AFRICAN AMERICAN 76 mL/min (90-120)
[2016-06-13 21:01] VITALS: BP 138/78
[2016-06-13 21:06] VITALS: BP 138/78; BMI 34.1
[2016-06-13 21:37] LABS: ERYTHROCYTE SEDIMENTATION RATE 64 mm/hr (0-30)
--- NOTE | 2016-06-13 22:46 | NUR ---
IV TO R HAND STARTED #22 TO R HAND WITH ATTEMPT X1 AT 2044 HRS. PT TOLERATED ACTIVITY WELL. DILAUDID 1MG SIVP GIVEN FOR C/O PAIN 10/10 AT 2053 HRS. PM MEDS GIVEN. ADMISSINA ASSESSMENT. HISTORY AND HOME MED LIST COMPLETED BY 2129 HRS. PT STATED PAIN 3-4/10 AT THAT TIME. L MASECTOMY NOTED. BILAT FEET RED AND SWOLLEN; PAINFUL TO TOUCH. R MORE THAN L. BILAT LOWER EXTREMITY US IN PROGRESS. WILL CONTINUE TO MONITOR.
[2016-06-14] VITALS (12 sets, daily range): BP systolic 108–161; BP diastolic 50–92
--- NOTE | 2016-06-14 00:18 | NUR ---
NORCO PO GIVEN FOR C/O PAIN 09/27. WILL CONTINUE TO MONITOR.
--- NOTE | 2016-06-14 00:30 | NUR ---
US RESULTS BACK. Sadiq CORRIGAN RN HS NOTIFIED OF FINDINGS. WILL CONTINUE TO MONITOR.
--- NOTE | 2016-06-14 01:15 | NUR ---
R FOOT NOW DUSKY, COOL TO TOUCH. TOES WHITE. POSTERIOR TIBIAL PULSE PER DOPPLER. DORSALIS PEDIS PULSE FAINT AND SLUGGISH PER DOPPLER. R FOOT STILL WARM TO TOUCH WITH FAINT PALPABLE PULSES. PULSES TO L FOOT DOPPLERED WITHOUT DIFFICULTY. R FOOT WRAPPED IN HEATED BLANKET. Sadiq CORRIGAN RN HS NOTIFIED OF FINDING TO DISCUSS WITH ANKIT MAHMOOD. DILAUDID 1MG SIVP GIVEN FOR C/O EXCRUTIATING PAIN. WILL CONTINUE TO MONITOR.
--- NOTE | 2016-06-14 03:00 | NUR ---
BILAT PEDAL PULSES PER DOPPLER. R DORSALIS PEDIS PULSE VERY FAINT AND THREADY. R GREAT TOE WHITE. R FOOT COOL TO TOUCH. L FOOT WARM TO TOUCH. PT IN RECLINER WITH FEET ELEVATED. WARM BLANKET WRAPPED AROND R FOOT. WILL CONTINUE TO MONITOR.
--- NOTE | 2016-06-14 03:09 | NUR ---
Sadiq CORRIGAN RN HS STATED SHE SPOKE WITH ER MD. NO ORDERS NOTED.
--- NOTE | 2016-06-14 04:18 | NUR ---
NORCO GIVEN AT 0330 HRS. PT STTES IT HELPED A LITTLE. WILL CONTINUE TO MONITOR.
--- NOTE | 2016-06-14 04:55 | NUR ---
DILAUDID 1MG SIVP GIVEN FOR C/O FOOT PAIN. R FOOT COOL TO TOUCH AND DUSKY/BLUE TO MID FOOT. R GREAT TOE WHITE. VERY SLUGGISH CAP REFILL NOTED. OTHER TOES DUSKY WITH BRISK CAP REFILL. R FOOT POSTERIOR TIBIAL PER DOPPLER. R DORSALIS PEDIS PULSE PER DOPPLER VERY FAINT AND SLUGGISH. L FOOT RED, WARM TO TOUCH WITH BRISK CAP REFILL. PULSES PER DOPPLER ALSO. PT IN RECLINER WITH FEET ELEVATED. R FOOT WRAPPED IN WARMED BLANKET. WILL CONTINUE TO MONITOR.
--- NOTE | 2016-06-14 05:55 | NUR ---
VSS THROUGHOUT NGIHT. PT NOW STATES R FOOT PAIN 06/27. NO CHANGE TO R FOOT NOTED AT THIS TIME. NEEDS MET; WILL CONTINUE TO MONITOR.
--- NOTE | 2016-06-14 07:00 | NUR ---
RECEIVED REPORT. ASSUMED CARE OF PATIENT. PATIENT SITTING TO CHAIR AT BEDSIDE WITH FEET ELEVATED. RIGHT FOOT COOL AND DISCOLORED. PATIENT STATES PAIN IS UNDERCONTROL AT THIS TIME. CALL LIGHT WITHIN REACH. DENIES NEEDS AT THIS TIME. NIGHT NURSE REPORTS SHE WILL PAGE . NO ACUTE DISTRESS.
--- NOTE | 2016-06-14 07:33 | NUR ---
DR MELI BRADFORD AT 0720 HRS. RETURNED CALL WITHIN 5 MINUTES. INFORMED OF PT'S DX, PROGRESSIVELY WORSE R FOOT DISCOLORATION, CAP REFILL SLUGGISH TO GREAT TOE AND BRISK TO OTHERS' FAINT AND SLUGGISH PULSES PER DOPPLER. L FOOT PULSES PER DOPPLER. NEW ORDERS RECEIVED AND NOTED. WILL CONTINUE TO MONITOR.
--- NOTE | 2016-06-14 09:15 | NUR ---
DECREASE CIRCULATION TO RIGHT GREAT TOE. CAP REFILL > 8-10 SECS. FOOT COOL TO TOUCH. UNABLE TO FIND DORSALIS PEDIS PULSE WITH DOPPLER. POSTERIOR TIBIALIS FOUND AND MARKED. PULSES TO LEFT FOOT MARKED WELL AT THIS TIME. WARM BLANKET APPLIED TO BILATERAL FEET. PATIENT STARTED ON LOVENOX ORDERED.
--- NOTE | 2016-06-14 12:15 | NUR ---
INFORMED PATIENT OF NPO STATUS AND SIGN PLACED ON DOOR AT THIS TIME.
--- NOTE | 2016-06-14 14:42 | NUR ---
PATIENT LEFT UNIT VIA BED AT THIS TIME TO IR. NO DISTRESS UPON LEAVING UNIT.
[2016-06-14 15:30] LABS: INR 0.99 (0.85-1.17)
--- NOTE | 2016-06-14 16:31 | NUR ---
FAVIO ALVAREZ RN HS BROUGHT PERSONAL BELONGINGS AND PLACED IN ROOM INCLUDING PURSE.
--- NOTE | 2016-06-14 17:00 | NUR ---
REC'D PT FROM SPECIALS AND HOOKED UP TO CM. SATTING 96% ON RA. RIGHT HAND PIV=SL. LEFT GROIN SHEATH WITH HEPARIN INFUSING AT 500 UNITS PER HOUR AT THE CATHETER AND ACTIVASE INFUSING AT SHEATH. NO S/S OF BLEEDING SEEN. LUNGS CTA. BS + X4 QUADS. UPPER EXT PPP. LEFT LOWER EXT PPD. RIGHT POST TIBIAL PULSE DOPPLERABLE. RIGHT DORSAL PEDAL PULSE ABSENT. TEACHING DONE TO KEEP RIGHT LEG STRAIGHT. VERBALIZES UNDERSTANDING. JOHNSON. FOLLOWS COMMANDS. A&O X4. PRETTY BEING PLACED BY CINTHYA MUNOZ AND CONCEPCIÓN MUNOZ. SEE FLOW SHEET FOR ADDITONAL ASSESSMENT.
--- NOTE | 2016-06-14 17:25 | NUR ---
DR. WOLF CALLED. ORDERS REC'D FOR ECHO EITHER THIS EVENING OR IN MORNING,EKG AND CONSULT DR. WALLS. DR. WALLS PAGED.
[2016-06-14 18:09] LABS: HEMATOCRIT 34.2 % (36.0-48.0); HEMOGLOBIN 11.1 g/dL (12-16); MCH 32.4 pg (26.0-34.0); MCHC 32.5 g/dL (31.0-37.0); MCV 99.7 fL (80.0-100.0); MEAN PLATELET VOLUME 9.8 fL (7.4-10.4); PLATELET COUNT 272 10x3/uL (130-400); RBC 3.43 10x6/uL (4.00-5.40); RDW 13.7 % (11.5-14.5); WBC 21.8 10x3/uL (4.8-10.8)
--- NOTE | 2016-06-14 18:18 | NUR ---
22 GAUGE PIV STARTED AT RIGHT HAND.SL.
--- NOTE | 2016-06-14 18:19 | NUR ---
INITIAL RIGHT HAND PIV DC'D.
[2016-06-14 18:25] LABS: INR 1.07 (0.85-1.17); PROTIME 13.7 SECONDS (11.6-15.0)
[2016-06-14 18:27] LABS: APTT 54.5 SECONDS (22.8-39.4)
[2016-06-14 18:30] LABS: EOSINOPHILS 1 % (0-7); LYMPHOCYTES 6 % (15-50); MONOCYTES 4 % (2-11); NEUTROPHILS 88 % (40-80); PLATELET ESTIMATE NORMAL
--- NOTE | 2016-06-14 18:38 | NUR ---
SMALL AMOUNT OF OOZING AT LEFT GROIN SHEATH SITE. WILL CONTINUE TO MONITOR.
--- NOTE | 2016-06-14 19:50 | NUR ---
SHIFT ASSESSMENT COMPLETED. SEE ASSESSMENT. PLACED SANDBAG ONTO LEFT GROIN. SLIGHT OOZING OF SANGUINOUS DRAINAGE TO SIGHT. TO WHITE PORT HEPARIN @ 500 UNITS/HR. BLUE CATHETER PORT ALTEPLASE @ 1MG/HR OR 20ML/HR. PULSES TO LEFT PEDAL AND P.T. PULSES AUDIBLE. RT FOOT MOTTLED AND PURPLE IN COLOR TO GREAT TOE SIDE OF FOOT. GREAT TOE SLIGHTLY WHITE IN COLOR. RT PEDAL PULSE ABSENT. RT POSTERIOR TIBIAL PULSE AUDIBLE BY DOPPLER. RT DISTAL FOOT COOLER IN TEMP VIA TOUCH. LEFT FOOT WARM TO TOUCH. PRETTY CATHETER TO GRAVITY DRAINING CLEAR, ZENAIDA URINE. TURNED & REPOSITIONED TO LEFT SIDE WITH PILLOW DUE TO BACK PAIN. BEGAN CRYING AND HITTING SELF IN FACE DUE TO PAIN. IV DILAUDID GIVEN, SEE EMAR. WILL MONITOR.
--- NOTE | 2016-06-14 20:30 | NUR ---
PULSES ASSESSED. NO CHANGES. WILL MONITOR.
--- NOTE | 2016-06-14 21:57 | NUR ---
PO PAIN MEDS GIVEN FOR RT FOOT PAIN AN 8/10 ON NUMBER SCALE. WILL MONITOR.
--- NOTE | 2016-06-14 22:40 | NUR ---
PULSES TO LE'S ASSESSED. DOPPLERABLE PULSE TO RT POSTERIOR TIBIAL PULSE; LEFT PEDAL AND LEFT P.T. LEFT GROIN OOZING AT THE SHEATH SITE. REDRESSED GROIN SITE BY ADDING A PACKAGE OF 4X4 AND TEGADERMS. APPLIED SANDBAG BACK ACROSS THAT GROIN. REPORTING PAIN TO RT FOOT AN 8/10 ON NUMBER SCALE. RT FOOT ELEVATED ONTO PILLOW AND BLANKETS AT MINIMUM TO FEET TO AVOID PAIN. WILL MONITOR.
--- NOTE | 2016-06-14 23:10 | NUR ---
CALLED TO CHECK ON HER. O.K. WITH PATIENT TO TELL HIM "I'M DOING FINE, TELL HIM TO GO AND RELAX". TOLD. NO OTHER QUESTIONS AT THIS TIME. WILL MONITOR.
[2016-06-15] VITALS (26 sets, daily range): BP systolic 90–133; BP diastolic 51–80
--- NOTE | 2016-06-15 00:18 | NUR ---
PLACED ONTO 1.5L/MIN O2 DUE TO O2 SATS ON ROOM AIR 88% AFTER IV DILAUDID GIVEN. 0024: PHELBO AT BEDSIDE TO DRAW TIMED LABS FROM RT ARM. WILL MONITOR.
[2016-06-15 00:39] LABS: BASOPHILS 0.2 % (0.0-2.0); EOSINOPHILS 1.4 % (0-7); HEMATOCRIT 31.9 % (36.0-48.0); HEMOGLOBIN 10.5 g/dL (12-16); IMMATURE GRANULOCYTES 0.8 % (0-5); LYMPHOCYTES 15.6 % (15-50); MCH 32.2 pg (26.0-34.0); MCHC 32.9 g/dL (31.0-37.0); MCV 97.9 fL (80.0-100.0); MEAN PLATELET VOLUME 9.6 fL (7.4-10.4); PLATELET COUNT 246 10x3/uL (130-400); RBC 3.26 10x6/uL (4.00-5.40); RDW 13.2 % (11.5-14.5); WBC 20.4 10x3/uL (4.8-10.8)
[2016-06-15 00:40] LABS: INR 1.13 (0.85-1.17); PROTIME 14.3 SECONDS (11.6-15.0)
[2016-06-15 00:41] LABS: APTT 37.4 SECONDS (22.8-39.4)
--- NOTE | 2016-06-15 00:58 | NUR ---
SPOKE WITH DR. JOSELIN MEADE VIA TELEPHONE REGARDING LAB RESULTS AND SMALL OOZING AT THE SITE. ENCOURAGES TO CHANGE DRSG NEEDED/SOILED AND UNLESS LABS ARE DRASTICALLY DIFFERENT, NO NEED TO CALL NEXT LABS. WILL MONITOR CLOSELY. WILL MONITOR.
--- NOTE | 2016-06-15 02:05 | NUR ---
EYES CLOSED. NO ACUTE DISTRESS NOTED. WILL MONITOR.
--- NOTE | 2016-06-15 03:00 | NUR ---
INFORMED WILL CHANGE SHEETS UNDER HERE WHEN PAIN MEDS ARE DUE AGAIN DUE TO SOILING OF SANGUINOUS DRAINAGE FROM LEFT GROIN PUNCTURE SITE.
--- NOTE | 2016-06-15 04:30 | NUR ---
REASSESSMENT COMPLETED. SEE ASSESSMENT FLOWSHEET. RESTING WITH EYES CLOSED.
--- NOTE | 2016-06-15 04:50 | NUR ---
AWOKE EASILY. OLD DRSG TO LEFT GROIN REMOVED DUE TO SOILING. SLOW OOZE NOTED AT PUNCTURE SITE NOTED. CLEANSED THE AREA AND OF BLOOD AND PLACED 1 PACKAGE 4X4'S, LARGE TEGADERMS TO COVER. LINENS CHANGED AND POSTERIOR AND PERINEAL AREA CLEANSED. WHITE ABSORBANT PAD PLACED WITH NEW LINENS. REQUESTED TO HAVE PAIN MEDS AGAIN AFTER ACTIVITY. PULSES REASSESSED TO LE'S. PULSES TO PEDAL AND POST. TIBIAL AUDIBLE BY DOPPLER TO LEFT FOOT. RT FOOT POSTERIOR TIBIAL PULSE AUDIBLE. STILL UNABLE TO FIND RT PEDAL PULSE. PATIENT SAW HER FOOT AND SAYS "IT LOOKS BETTER". NO SENSATION TO GREAT AND FIRST TOE. 0500: IV DILAUDID GIVEN. WILL MONITOR.
--- NOTE | 2016-06-15 06:30 | NUR ---
MITCHEL AT BEDSIDE TO DRAW 0600 LABS. LEFT GROIN SITE WITH MINIMAL OUTPUT NOTED TO MARSHALL. SANDBAG REMAINS IN PLACE. WILL MONITOR.
[2016-06-15 07:02] LABS: HEMATOCRIT 33.6 % (36.0-48.0); HEMOGLOBIN 10.9 g/dL (12-16); MCH 32.1 pg (26.0-34.0); MCHC 32.4 g/dL (31.0-37.0); MCV 98.8 fL (80.0-100.0); MEAN PLATELET VOLUME 9.6 fL (7.4-10.4); PLATELET COUNT 238 10x3/uL (130-400); RDW 13.3 % (11.5-14.5)
[2016-06-15 07:03] LABS: BASOPHILS 0.3 % (0.0-2.0); EOSINOPHILS 2.6 % (0-7); IMMATURE GRANULOCYTES 0.8 % (0-5); LYMPHOCYTES 15.6 % (15-50); MONOCYTES 4.6 % (2-11); NEUTROPHILS 76.1 % (40-80)
[2016-06-15 07:20] LABS: CALC OSMOLALITY 271 mosm/kg (275-300); CALCIUM 8.1 mg/dL (8.5-10.1); CARBON DIOXIDE 29.1 mmol/L (21.0-32.0); CHLORIDE - SERUM 100 mmol/L (98-107); GLUCOSE 99 mg/dL (74-106); POTASSIUM - SERUM 3.9 mmol/L (3.5-5.1); SODIUM 136 mmol/L (136-145); UREA NITROGEN 13 mg/dL (7-18)
[2016-06-15 07:21] LABS: INR 1.18 (0.85-1.17); PROTIME 14.9 SECONDS (11.6-15.0)
[2016-06-15 07:22] LABS: APTT 42.5 SECONDS (22.8-39.4); CREATININE - SERUM 0.5 mg/dL (0.6-1.3); eGFR NON AFRICAN AMERICAN > 90 mL/min (90-120)
--- NOTE | 2016-06-15 07:53 | NUR ---
CECILE WITH IR AT BEDSIDE.
--- NOTE | 2016-06-15 08:40 | NUR ---
0840- PT GONE FOR PROCEDURE.
--- NOTE | 2016-06-15 10:43 | NUR ---
REC'D PT BACK FROM OR. AAO X4. SPOUSE AT BEDSIDE.
[2016-06-15 12:43] LABS: BASOPHILS 0.3 % (0.0-2.0); EOSINOPHILS 2.4 % (0-7); HEMATOCRIT 34.9 % (36.0-48.0); HEMOGLOBIN 11.2 g/dL (12-16); IMMATURE GRANULOCYTES 0.8 % (0-5); LYMPHOCYTES 15.3 % (15-50); MCH 31.8 pg (26.0-34.0); MCHC 32.1 g/dL (31.0-37.0); MCV 99.1 fL (80.0-100.0); MEAN PLATELET VOLUME 9.6 fL (7.4-10.4); MONOCYTES 4.5 % (2-11); NEUTROPHILS 76.7 % (40-80); PLATELET COUNT 251 10x3/uL (130-400); RBC 3.52 10x6/uL (4.00-5.40); RDW 13.4 % (11.5-14.5); WBC 17.2 10x3/uL (4.8-10.8)
--- NOTE | 2016-06-15 12:45 | NUR ---
1245- PT SPOUSE AT BEDSIDE. UPDATE PROVIDED. WILL CONTINUE TO MONITOR. 1430- PT RESTING IN BED, EYES CLOSED. VSS. WILL CONTINUE TO MONITOR.
[2016-06-15 12:54] LABS: INR 1.14 (0.85-1.17); PROTIME 14.5 SECONDS (11.6-15.0)
[2016-06-15 12:55] LABS: APTT 39.1 SECONDS (22.8-39.4)
--- NOTE | 2016-06-15 16:55 | NUR ---
1655- PT RESTING IN BED, AROUSES EASILY TO VOICE. DENIES PAIN WITH USE OF DILAUDID CARBON BRUSHES ASSEMBLER. 9- PT RESTING IN BED, WATCHING TV. CALL LIGHT IN REACH. CARBON BRUSHES ASSEMBLER IN USE.
[2016-06-15 18:18] LABS: BASOPHILS 0.3 % (0.0-2.0); EOSINOPHILS 3.1 % (0-7); HEMATOCRIT 32.7 % (36.0-48.0); HEMOGLOBIN 10.7 g/dL (12-16); LYMPHOCYTES 15.5 % (15-50); MCH 32.2 pg (26.0-34.0); MCHC 32.7 g/dL (31.0-37.0); MCV 98.5 fL (80.0-100.0); MEAN PLATELET VOLUME 9.6 fL (7.4-10.4); MONOCYTES 4.4 % (2-11); NEUTROPHILS 75.7 % (40-80); PLATELET COUNT 231 10x3/uL (130-400); RBC 3.32 10x6/uL (4.00-5.40); RDW 13.3 % (11.5-14.5); WBC 16.7 10x3/uL (4.8-10.8)
[2016-06-15 18:38] LABS: APTT 37.5 SECONDS (22.8-39.4); INR 1.17 (0.85-1.17); PROTIME 14.7 SECONDS (11.6-15.0)
--- NOTE | 2016-06-15 23:30 | NUR ---
1929- REPORT RECVD. CARE ASSUMED. INITIAL ASSMNT COMPLETED. SEE FLOWSHEET FOR ALL FINDINGS. RESTING WITH NO DISTRESS. RESP UNLABORED. LUNGS CTA. SPO2 95% ON O2 AT 2 LPM NC. SR ON THE MONITOR. LEFT GROIN SHEATH PATENT AND INTACT, INFUSING HEPARIN AND ACTIVASE GTTS. RIGHT FOOT WARM WITH HEEL BRIDGED. POST TIBIAL PULSE PER DOPPLER. SOME REDDENED/PURPLISH DISCOLORATION NOTED. LEFT PEDAL PULSE PALP, WEAK. PAIN CONTINUES. CONTROLLED WITH MAIL CARRIER AND CLERK DILAUDID AT THIS TIME. ABD SOFT, BSA X4. F/C PATENT WITH ZENAIDA UOP. HOB UP. C/L IN REACH. CONT CURRENT POC. 2100- HS MEDS GIVEN. SPOUSE AT BEDSIDE. REPOSITIONED FOR COMFORT. HALF SANDWICH TRAY CONSUMED. VSS. HOB UP. C/L IN REACH. CONT CURRENT POC . 0- REASSESSMENT COMPLETED. SEE FLOWSHEET FOR ALL ALL FINDINGS. RESTING WITH NO DISTRESS. RESP UNLABORED. LUNGS CTA. SPO2 95% ON O2 AT 2 LPM NC. SR ON THE MONITOR. LEFT GROIN SHEATH PATENT AND INTACT, INFUSING HEPARIN AND ACTIVASE GTTS. RIGHT FOOT WARM WITH HEEL BRIDGED. POST TIBIAL PULSE PER DOPPLER. SOME REDDENED/PURPLISH DISCOLORATION NOTED. LEFT PEDAL PULSE PALP, WEAK. PAIN CONTINUES. CONTROLLED WITH MAIL CARRIER AND CLERK DILAUDID AT THIS TIME. ABD SOFT, BSA X4. F/C PATENT WITH ZENAIDA UOP. HOB UP. C/L IN REACH. CONT CURRENT POC.
[2016-06-16] VITALS (20 sets, daily range): BP systolic 81–123; BP diastolic 53–75; Ht 165.1 cm; Wt 98.6 kg
[2016-06-16 00:23] LABS: HEMATOCRIT 31.8 % (36.0-48.0); HEMOGLOBIN 10.6 g/dL (12-16); LYMPHOCYTES 11.2 % (15-50); MCH 32.4 pg (26.0-34.0); MCHC 33.3 g/dL (31.0-37.0); MCV 97.2 fL (80.0-100.0); MEAN PLATELET VOLUME 8.9 fL (7.4-10.4); NEUTROPHILS 82.6 % (40-80); RBC 3.27 10x6/uL (4.00-5.40); RDW 13.2 % (11.5-14.5); WBC 18.1 10x3/uL (4.8-10.8)
[2016-06-16 00:26] LABS: PLATELET COUNT 281 10x3/uL (130-400)
[2016-06-16 00:33] LABS: INR 1.1 (0.85-1.17); PROTIME 14.1 SECONDS (11.6-15.0)
[2016-06-16 00:34] LABS: APTT 35.4 SECONDS (22.8-39.4)
--- NOTE | 2016-06-16 01:05 | NUR ---
NPO AFTER MN. SERIAL COAG LABWORK WITHIN PARAMETERS. VSS. SUPERVISOR WATER SOFTENER SERVICE DILAUDID PROVIDING PAIN CONTROL. HOB UP. C/L IN REACH. CONT CURRENT POC.
--- NOTE | 2016-06-16 03:20 | NUR ---
REASSESSMENT COMPLETED. SEE FLOWSHEET FOR ALL FINDINGS. RESTING WITH NO DISTRESS. RESP UNLABORED. LUNGS CTA. SPO2 95% ON O2 AT 2 LPM NC. SR ON THE MONITOR. LEFT GROIN SHEATH PATENT AND INTACT, INFUSING HEPARIN AND ACTIVASE GTTS. RIGHT FOOT WARM WITH HEEL BRIDGED. POST TIBIAL PULSE PER DOPPLER. SOME REDDENED/PURPLISH DISCOLORATION NOTED. LEFT PEDAL PULSE PALP, WEAK. PAIN CONTINUES. CONTROLLED WITH ROUTER OPERATOR RADIAL DILAUDID AT THIS TIME. ABD SOFT, BSA X4. F/C PATENT WITH ZENAIDA UOP. HOB UP. C/L IN REACH. CONT CURRENT POC.
--- NOTE | 2016-06-16 04:44 | NUR ---
RESTING WITH NO DISTRESS. PAIN IS CONSTANT BUT IMPROVED. 07/28. DILAUDID HEEL STIFFENER IN USE. VSS. HOB UP. C/L IN REACH. CONT CURRENT POC.
--- NOTE | 2016-06-16 06:30 | NUR ---
piv to right hand found out in pt bed. attempting to restart piv at this time
[2016-06-16 06:44] LABS: CALC OSMOLALITY 275 mosm/kg (275-300); CALCIUM 8.3 mg/dL (8.5-10.1); CHLORIDE - SERUM 100 mmol/L (98-107); CREATININE - SERUM 0.6 mg/dL (0.6-1.3); GLUCOSE 96 mg/dL (74-106); POTASSIUM - SERUM 4.4 mmol/L (3.5-5.1); SODIUM 137 mmol/L (136-145); eGFR NON AFRICAN AMERICAN > 90 mL/min (90-120)
[2016-06-16 06:46] LABS: UREA NITROGEN 17 mg/dL (7-18)
[2016-06-16 06:56] LABS: BASOPHILS 0.2 % (0.0-2.0); EOSINOPHILS 2.4 % (0-7); HEMATOCRIT 31.5 % (36.0-48.0); HEMOGLOBIN 10.3 g/dL (12-16); IMMATURE GRANULOCYTES 0.8 % (0-5); LYMPHOCYTES 12.6 % (15-50); MCH 32.2 pg (26.0-34.0); MCHC 32.7 g/dL (31.0-37.0); MCV 98.4 fL (80.0-100.0); MEAN PLATELET VOLUME 9.8 fL (7.4-10.4); MONOCYTES 4.9 % (2-11); NEUTROPHILS 79.1 % (40-80); PLATELET COUNT 263 10x3/uL (130-400); RDW 13.4 % (11.5-14.5); WBC 17.7 10x3/uL (4.8-10.8)
[2016-06-16 07:13] LABS: APTT 39.5 SECONDS (22.8-39.4); INR 1.16 (0.85-1.17); PROTIME 14.7 SECONDS (11.6-15.0)
--- NOTE | 2016-06-16 07:45 | NUR ---
0745- REC'D AAO X4. ASSESSMENT COMPLETE. SEE FLOWSHEET. PT PIV WAS PULLED OUT PRIOR TO MY ARRIVAL. ATTEMPTED TO RESTART X2. UNSUCCESSFUL. IR NURSE NOTIFIED. THEY ATTEMPTED TO START PIV X1. UNSUCCESSFUL. BONNIE ARGUETA, VASCULAR ACCESS ATTEMPTED X1. UNSUCCESSFUL. 0830- PT GONE TO IR FOR PROCEDURE. 0910- PT BACK FROM PROCEDURE, UNABLE TO PERFORM DUE TO EQUIPMENT MALFUNCTION. BONNIE ARGUETA AT BEDSIDE TO PLACE PICC LINE. CONSENT OBTAINED. 0930- XRAY ORDERED FOR PICC LINE PLACEMENT.
--- NOTE | 2016-06-16 10:42 | NUR ---
Patient Name: MICHELLE WALTER Admission Status: Elective Accout number: [id number] Admission Date: 06-13-2016 : 1950 Admission Diagnosis: Attending: CARI Current LOS: 3 Anticipated DC Date: UNSURE Planned Disposition: Home with Home Health Primary Insurance: [employer] MEDICARE ADV Is the patient Alert and Oriented? Yes 0 * How many steps to enter\exit or inside your home? 3 STEPS INTO HOME WITH RAILING * PCP DR ALMAZAN * Pharmacy [facility] ON [address] * Preadmission Environment Home with Family * ADLs Partial Dependent * Partial ADLs (Assistance needed) Ambulation * Equipment Cane * List name and contact numbers for known caregivers / representatives who currently or will assist patient after discharge: CARMELLA WALTER, SPOUSE, * Community resources currently utilized None * Additional services required to return to the preadmission environment? Yes * Can the patient safely return to the preadmission environment? Yes * Has this patient been hospitalized within the prior 30 days at any hospital? No Discharge Planning Comments: CM MET WITH PATIENT AND HER SPOUSE TO ASSESS DC PLAN/NEEDS. PT STATED SHE LIVES AT HOME WITH HER SPOUSE AND WAS INDEPENDENT IN HER CARE/ADL'S PRIOR TO THIS ADMISSION. SHE STATED SHE HAS A CANE SHE USES FOR AMBULATION. STATED HER WILL PROVIDE HER TRANSPORTATION AT DISCHARGE. SHE STATED SHE HAS NEVER USED ANY HH OR REHAB SERVICES IN THE PAST. SHE DID INFORM THAT SHE THINKS SHE WILL REQUIRE HH SERVICES AT DISCHARGE. SHE LIVES IN [place], [place] AND IS UNSURE OF LOCAL HH AGENCIES THAT COVER HER AREA. CM WILL INQUIRE WHICH HH AGENCIES ARE AVAILABLE TO HER AND GET HH TYRELL FORM COMPLETED. AT THIS TIME, SHE DENIED NEED FOR ADDITIONAL DME IN HER HOME. SHE STATED HER HOME IS A SAFE PLACE AND PLANS TO RETURN HOME WITH HER SPOUSE AT D/C. CM WILL FOLLOW AND ASSIST WITH HH REFERRAL AND WITH ANY OTHER DC NEEDS THEY ARISE. Slat Basket Top Maker: Maria A Mujica RN, CM
--- NOTE | 2016-06-16 11:50 | NUR ---
1150- PT RESTING IN BED, DENIES NEEDS AT THIS TIME. WILL CONTINUE TO MONITOR.
[2016-06-16 12:23] LABS: BASOPHILS 0.1 % (0.0-2.0); EOSINOPHILS 1.5 % (0-7); HEMATOCRIT 30.7 % (36.0-48.0); HEMOGLOBIN 10.1 g/dL (12-16); IMMATURE GRANULOCYTES 0.9 % (0-5); LYMPHOCYTES 11.7 % (15-50); MCH 32.2 pg (26.0-34.0); MCHC 32.9 g/dL (31.0-37.0); MCV 97.8 fL (80.0-100.0); MEAN PLATELET VOLUME 9.5 fL (7.4-10.4); MONOCYTES 4.5 % (2-11); NEUTROPHILS 81.3 % (40-80); PLATELET COUNT 262 10x3/uL (130-400); RBC 3.14 10x6/uL (4.00-5.40); RDW 13.3 % (11.5-14.5); WBC 17.7 10x3/uL (4.8-10.8)
[2016-06-16 13:08] LABS: APTT 43.3 SECONDS (22.8-39.4)
[2016-06-16 13:10] LABS: INR 1.09 (0.85-1.17)
--- NOTE | 2016-06-16 13:45 | NUR ---
1345- PT GONE FOR PROCEDURE. 1650- PT BACK FROM PROCEDURE. RIGHT PEDAL PULSE NOT FOUND WITH DOPPLER. POST TIB PALPABLE. HEP GTT INFUSING AT 900 UNITS/HR. 1830- PT RESTING IN BED, DENIES NEEDS AT THIS TIME. CALL LIGHT IN REACH.
--- NOTE | 2016-06-16 19:00 | NUR ---
REPORT RECEIVED AND ASSESSMENT COMPLETED. SEE FLOWSHEET FOR DETAILS. PT HAS DRESSING IN LEFT GROIN. SOME SEROSANGUINOUS DRAINAGE VISIBLE. DRESSING INTACT AND MARKED. WILL MONITOR FOR ADDITIONAL DRAINAGE. SITE IS SOFT AND SUPPLE. PULSES PALPABLE BUT WEAK IN LEFT LOWER EXTREMETY. DOPPLER USED TO FIND PEDAL PULSE ON RIGHT SIDE. PT IS ON A HEPARIN DRIP. PTT DRAWN. WILL ADJUST ACCORDING TO PROTOCOL. VSS. WILL CONTINUE TO MONITOR.
--- NOTE | 2016-06-16 21:00 | NUR ---
INCREASED HEPARIN PER PROTOCOL. DRIP NOW AT 1000 UNITS/HR. VSS. WILL CONTINUE TO MONITOR.
--- NOTE | 2016-06-16 23:31 | NUR ---
REASSESSMENT COMPLETED. SEE FLOWSHEET. VSS. WILL CONTINUE TO MONITOR
[2016-06-17] VITALS (22 sets, daily range): BP systolic 95–129; BP diastolic 48–81
--- NOTE | 2016-06-17 01:00 | NUR ---
NO CHANGES IN STATUS AT THIS TIME. PT RESTING IN BED. VSS. WILL CONTINUE TO MONITOR.
--- NOTE | 2016-06-17 03:00 | NUR ---
REASSESSMENT COMPLETED. SEE FLOWSHEET. PTT DRAWN. WILL ADJUST HEPARIN DRIP PER PROTOCOL WHEN RESULTS ARE RECEIVED.
[2016-06-17 03:23] LABS: INR 1.05 (0.85-1.17); PROTIME 13.6 SECONDS (11.6-15.0)
[2016-06-17 03:24] LABS: APTT 44.3 SECONDS (22.8-39.4)
[2016-06-17 03:41] LABS: BASOPHILS 0.1 % (0.0-2.0); EOSINOPHILS 2.9 % (0-7); HEMATOCRIT 29.4 % (36.0-48.0); HEMOGLOBIN 9.4 g/dL (12-16); IMMATURE GRANULOCYTES 1.1 % (0-5); LYMPHOCYTES 11.8 % (15-50); MCH 31.5 pg (26.0-34.0); MCV 98.7 fL (80.0-100.0); MEAN PLATELET VOLUME 9.6 fL (7.4-10.4); MONOCYTES 4.9 % (2-11); NEUTROPHILS 79.2 % (40-80); RBC 2.98 10x6/uL (4.00-5.40); RDW 13.1 % (11.5-14.5); WBC 17.5 10x3/uL (4.8-10.8)
[2016-06-17 03:43] LABS: PLATELET COUNT 325 10x3/uL (130-400)
[2016-06-17 03:49] LABS: CALC OSMOLALITY 269 mosm/kg (275-300); CARBON DIOXIDE 32.7 mmol/L (21.0-32.0); CHLORIDE - SERUM 98 mmol/L (98-107); CREATININE - SERUM 0.5 mg/dL (0.6-1.3); GLUCOSE 94 mg/dL (74-106); SODIUM 134 mmol/L (136-145); UREA NITROGEN 17 mg/dL (7-18); eGFR NON AFRICAN AMERICAN > 90 mL/min (90-120)
--- NOTE | 2016-06-17 05:35 | NUR ---
PT ASLEEP BUT EASILY AROUSABLE. VSS. WILL CONTINUE TO MONITOR.
--- NOTE | 2016-06-17 07:15 | NUR ---
REC'D REPORT AND RESUMED CARE, AWAKE AND ALERT, O2 VIA NC AT 2L, VSS, ORIENTED X4, C/O PAIN IN RIGHT FOOT 11/27, FOOT BLUISH PURPLE AT 2ND AND GREAT TOE, PULSE VIA DOPPLER WEAK PEDAL, POSTERIOR TIBIAL STRONG VIA DOPPLER, EXTREMETY WARM TO TOUCH, PRETTY TO GRAVITY WITH DARK CONCENTRATED DRAINAGE TO BAG, HEELS FLOATED, REPOSITIONED UP AND TO BACK, CALL LIGHT IN REACH, ASSESSMENT COMPLETED PER FLOWSHEET, VOICES NO NEEDS AT THIS TIME
[2016-06-17 08:20] LABS: CA 15-3 6.9 U/mL (0.0-25.0)
--- NOTE | 2016-06-17 08:45 | NUR ---
AM MEDS GIVEN WITHOUT DIFFICULTY
--- NOTE | 2016-06-17 09:15 | NUR ---
BREAKFAST TRAY TO BEDSIDE, SPOUSE ASSIST WITH SET UP AND EATING
--- NOTE | 2016-06-17 11:00 | NUR ---
BATHE AND LINEN CHANGE COMPLETED, TOLERATED WITHOUT DIFFICULTY, ASSESSMENT COMPLETED, CONTINUES TO C/O OF PAIN IN RIGHT FOOT, GREAT TOE AND 2ND TOE BLUISH PURPLE, BLISTER NOTED FORMING ON DORSAL PEDAS
[2016-06-17 11:42] LABS: INR 1.03 (0.85-1.17); PROTIME 13.3 SECONDS (11.6-15.0)
--- NOTE | 2016-06-17 11:50 | NUR ---
PHONE CALL FROM LAB, PTT >175, ASKED TO HAVE PHELBOTOMIST HERE FOR REDRAW FR COMPARISON, HEPARIN DOSE CHANGED PER RESULT TO DOWN TO 8OO UNITS/HOUR,
--- NOTE | 2016-06-17 12:00 | NUR ---
SPOUSE AT BEDSIDE, STATUS UPDATED, VOICES NO NEEDS AT THIS TIME
--- NOTE | 2016-06-17 12:16 | NUR ---
LAB HERE TO DRAW PTT FOR CONFIMATION OF LINE DRAW RESULT
[2016-06-17 14:50] LABS: APTT 175.4 SECONDS (22.8-39.4)
--- NOTE | 2016-06-17 15:00 | NUR ---
RESTING WITH NO SIGNS OF DISTRESS, VSS, CONTINUES TO C/O OF PAIN IN THE RIGHT FOOT AND LEG, GREAT TOE AND SECOND TOE BLUISH PURPLE, NO OTHER ACUTE CHANGE FROM PREVIOUS
--- NOTE | 2016-06-17 16:30 | NUR ---
DINNER TRAY TO BEDSIDE, ASSIST WITH SET UP, REPOSITIONED UP AND TO BACK WITH HEELS FLOATED, INDEPENDENT WITH EATING
[2016-06-17 16:35] LABS: INR 0.97 (0.85-1.17); PROTIME 12.7 SECONDS (11.6-15.0)
[2016-06-17 16:42] LABS: APTT 31.7 SECONDS (22.8-39.4)
--- NOTE | 2016-06-17 17:15 | NUR ---
PTT RESULTS 31.7, BOLUS OF 3000 UNIT GIVEN AND GTT TITRATED TO 1000 UNITS/HOUR
--- NOTE | 2016-06-17 18:00 | NUR ---
SPOUSE AT BEDSIDE, STATUS UPDATED, VOICES NO NEEDS AT THIS THIS TIME, VSS, PATIENT SLEEPING WITH NO SIGNS OF DISTRESS, AROUSES TO VERBAL STIMULI, CALL LIGHT IN REACH, DILAUDID MOLDING ENGINEER IN USE
--- NOTE | 2016-06-17 18:46 | NUR ---
C/O OF PAIN AND SORE NECK, 08/27, WARM PACK APPLIED PER REQUEST, NO OTHER NEEDS AT THIS TIME
--- NOTE | 2016-06-17 19:00 | NUR ---
REPORT RECEIVED AND ASSESSMENT COMPLETED. SEE FLOWSHEET. USED DOPPLER TO FIND PULSES IN RIGHT FOOT. PEDAL PULSE WEAK. PT REPORTS PAIN LEVEL OF 8 DESPITE PLUMBING CONTRACTOR. PRN NORCO GIVEN. VSS. WILL MONITOR.
--- NOTE | 2016-06-17 21:17 | NUR ---
2100 MEDS GIVEN. LEFT GROIN DRESSING CHANGED. VSS. WILL CONTINUE TO MONITOR.
--- NOTE | 2016-06-17 23:00 | NUR ---
REASSESSMENT COMPLETED. DURING PULSE CHECK INCREASED REDNESS AND SWELLING NOTED IN RIGHT FOOT. PEDAL PULSE STILL PRESENT WITH DOPPLER. SEE FLOWSHEET FOR FULL DETAILS. VSS. WILL MONITOR.
[2016-06-18] VITALS (24 sets, daily range): BP systolic 92–127; BP diastolic 48–74
--- NOTE | 2016-06-18 00:26 | NUR ---
SPOKE WITH DR MEADE REGARDING INCREASING REDNESS AND SWELLING OF THE PATIENTS RIGHT ANKLE AND FOOT. NO NEW ORDERS AT THIS TIME. VSS. WILL CONTINUE TO MONITOR
--- NOTE | 2016-06-18 03:15 | NUR ---
REASSESSMENT COMPLETED. SEE FLOWSHEET. CENTRAL LINE DRESSING CHANGED, AND LEFT GROIN DRESSING CHANGED. VSS WILL CONTINUE TO MONITOR.
--- NOTE | 2016-06-18 05:30 | NUR ---
AM LABS DRAWN. PT REPOSITIONED IN BED. NO OTHER CHANGES AT THIS TIME. VSS. WILL CONTINUE TO MONITOR.
[2016-06-18 05:48] LABS: INR 0.97 (0.85-1.17); PROTIME 12.8 SECONDS (11.6-15.0)
[2016-06-18 05:49] LABS: APTT 41.9 SECONDS (22.8-39.4)
[2016-06-18 05:50] LABS: BASOPHILS 0.2 % (0.0-2.0); EOSINOPHILS 4.2 % (0-7); HEMATOCRIT 27.1 % (36.0-48.0); HEMOGLOBIN 8.8 g/dL (12-16); IMMATURE GRANULOCYTES 1.6 % (0-5); LYMPHOCYTES 18.5 % (15-50); MCH 31.5 pg (26.0-34.0); MCHC 32.5 g/dL (31.0-37.0); MCV 97.1 fL (80.0-100.0); MEAN PLATELET VOLUME 9.2 fL (7.4-10.4); MONOCYTES 5.9 % (2-11); NEUTROPHILS 69.6 % (40-80); RBC 2.79 10x6/uL (4.00-5.40); RDW 13.1 % (11.5-14.5); WBC 15.6 10x3/uL (4.8-10.8)
[2016-06-18 05:53] LABS: PLATELET COUNT 427 10x3/uL (130-400)
[2016-06-18 06:14] LABS: ALBUMIN 1.8 g/dL (3.4-5.0); ALKALINE PHOSPHATASE 180 U/L (46-116); ALT (SGPT) 49 U/L (10-68); BILIRUBIN - TOTAL 0.19 mg/dL (0.2-1.3); CALC OSMOLALITY 266 mosm/kg (275-300); CALCIUM 8.2 mg/dL (8.5-10.1); CHLORIDE - SERUM 97 mmol/L (98-107); CHOL - HDL RATIO 4.5 ratio (2.3-4.1); CHOLESTEROL, TOTAL 152 mg/dL (0-200); CREATININE - SERUM 0.5 mg/dL (0.6-1.3); GLUCOSE 95 mg/dL (74-106); HDL CHOLESTEROL 34 mg/dL (32-96); LDL CHOLESTEROL 80 mg/dL (0-100); LDL-HDL RATIO 2.4 ratio (1.5-3.5); POTASSIUM - SERUM 4.2 mmol/L (3.5-5.1); PROTEIN - SERUM 6.4 g/dL (6.4-8.2); SODIUM 133 mmol/L (136-145); TRIGLYCERIDE 190 mg/dL (30-200); UREA NITROGEN 14 mg/dL (7-18); eGFR NON AFRICAN AMERICAN > 90 mL/min (90-120)
--- NOTE | 2016-06-18 06:26 | NUR ---
HEPARIN INCREASED TO 1200 UNITS/HR PER PROTOCOL. NO OTHER CHANGES AT THIS TIME.
--- NOTE | 2016-06-18 07:00 | NUR ---
REC'D REPORT AND RESUMED CARE, AWAKE AND ALERT, VSS, C/O PAIN 10/27 IN FOOT, VESSEL BUILDER IN USE AND ENCOURAGED, ASSESSMENT COMPLETE PER FLOWSHEET, PEDAL PULSES VIA DOPPLER, RIGHT FOOT GREAT TOE BLUISH PURPLE, +2 SWELLING LEG AND ANKLE, AREA REDDENED AND WARM, REPOSITIONED UP AND TO BACK WITH HEELS FLOATED, CALL LIGHT IN REACH, VOICES NO NEEDS AT THIS TIME
--- NOTE | 2016-06-18 08:10 | NUR ---
BREAKFAST TRAY TO BEDSIDE, ASSIST WITH SET UP, INDEPENDENT WITH EATING
--- NOTE | 2016-06-18 08:50 | NUR ---
AM MEDS GIVEN WITHOUT DIFFICULTY
--- NOTE | 2016-06-18 08:55 | NUR ---
PC TO DR. MARTINEZ RE: CONSULT, WILL SEE PATIENT POST CLINIC ON TODAY, ECHO PREVIOUSLY COMPLETED ON 06/14.
--- NOTE | 2016-06-18 09:00 | NUR ---
FAMILY AT BEDSIDE, STATUS UPDATE, VOICES NO NEEDS AT THIS TIME
--- NOTE | 2016-06-18 09:15 | NUR ---
WALTER CASTREJON IN LAB RE: PTT SCHEDULE, WILL KEEP ON 03/25, 03/25, NEXT PTT DUE AT 1200 TODAY
--- NOTE | 2016-06-18 09:30 | NUR ---
ASSUMED CARE OF PATIENT. PT ALERT AND CONVERSANT. REQUESTING A BATH
--- NOTE | 2016-06-18 10:15 | NUR ---
BED BATH PROVIDED BY STUDENT NURSE REQUESTED BY PATIENT. PARTIAL LINEN CHANGE PROVIDED.
[2016-06-18 11:16] LABS: HEPATITIS C ANTIBODY <0.1 (0.0-0.9)
--- NOTE | 2016-06-18 11:38 | NUR ---
PT SITTING UP IN BED WITH LUNCH TRAY. DENIES NEEDS AT THIS TIME. HEPARIN INFUSION PAUSED AND PICC LINE FLUSHED FOR PTT LAB DRAW DUE AT NOON.
--- NOTE | 2016-06-18 11:56 | NUR ---
LAB FOR PTT DRAWN. IV FLUIDS RESTARTED. AWAITING RESULTS TO MAKE ANY NECESSARY CHANGES TO HEPARIN DRIP.
[2016-06-18 12:18] LABS: APTT 42.1 SECONDS (22.8-39.4); INR 0.97 (0.85-1.17); PROTIME 12.7 SECONDS (11.6-15.0)
--- NOTE | 2016-06-18 12:52 | NUR ---
PT C/O GENERALIZED ITCHING. ASKED FOR SOME BENADRYL. NONE ON PT EMAR. CALLED FOR DR ADLER. ORDER RECEIVED FOR 25MG PO Q4-6HR PRN ITCHING.
--- NOTE | 2016-06-18 14:37 | NUR ---
PT SLEEPING. NO DISTRESS NOTED AT THIS TIME. BED LOW. SIDE RAILS X2. CALL LIGHT IN REACH.
--- NOTE | 2016-06-18 15:06 | NUR ---
PT AWAKE, FAMILY AT BEDSIDE FOR 3PM VISITATION. NO NEEDS VOICED AT THIS TIME.
--- NOTE | 2016-06-18 16:28 | NUR ---
ULTRASOUND IN PROGRESS
--- NOTE | 2016-06-18 18:15 | NUR ---
FAMILY AT BEDSIDE. PT DENIES NEEDS AT THIS TIME. AWAKE AND CONVERSANT, WATCHING TELEVISION.
--- NOTE | 2016-06-18 18:46 | NUR ---
CALLED LAB TO ASK ABOUT RESULTS OF 1800 PTT. SPECIMEN SENT VIA TUBE SYSTEM AT 1800. SPOKE WITH WERNER. SPECIMEN IS RUNNING NOW AND SHOULD RESULT OUT SHORTLY
[2016-06-18 18:51] LABS: INR 1.01 (0.85-1.17); PROTIME 13.1 SECONDS (11.6-15.0)
[2016-06-18 18:52] LABS: APTT 39.9 SECONDS (22.8-39.4)
--- NOTE | 2016-06-18 19:45 | NUR ---
Received patient resting in bed with eyes open watching tv, Assessment completed per flowsheet. Patient is AO x4, demeanor is pleasant. Eyes PERRLA @ 3mm with brisk response, sclera is white. Oral/Nasal mucosa is moist and intact, Oxygen sat 98% on 2L via NC. S1/S2 noted with patient NSR on telemetry, rate is rhythmic and regular. Lung sounds clear bilateral upper with slightly diminished lower, breathing is even and unlabored. Abdomen is soft and non-tender to palpation, bowel sounds Hypoactive x4. Garcia secured in place, concentrated yellow urine noted in collection bag. Dressing CDI R groin, Full ROM upper extremities, limited ROM lower extremities. Upper pulses palpable with doppler used on lower extremities, swelling noted in all extremities. R foot swollen with purple coloration on great toe and second toe, patient states extremely tender to touch. Patient is L Arm reserve from previous mastectomy, R Upper Arm PICC noted with fluids infusing. Patient states pain 4/10 in R foot described as aching/throbbing, Dilaudid POT SANDER in use. Patient denies other needs at this time, all VSS and will continue to monitor.
--- NOTE | 2016-06-18 21:00 | NUR ---
No visitors at this time, patient is resting in bed with eyes open watching tv. Patient states more "feeling returning to foot, because it twitches", edema appears decreased in R foot pulses still require doppler. HS meds given without difficulty, denies other needs at this time. All VSS and will continue to monitor.
--- NOTE | 2016-06-18 23:00 | NUR ---
Patient resting in bed with eyes closed, breathing is even and unlabored with O2 sat 97% on 2L via NC. No further needs at this time, all VSS and will continue to monitor.
--- NOTE | 2016-06-18 23:07 | NUR ---
Reassessment complete per flowsheet, patient resting in bed with eyes closed. Breathing is even and unlabored, O2 sat 98% on 2L via NC. S1/S2 noted with patient NSR on telemetry, HR 80. Upper extremity pulses palpable, lower extremities doppler. R foot warm to touch and tender, toes remain unchanged in condition. Patient states pain 2/10 in foot, FRAME NAILER available for pain management. No further needs at this time, all VSS and will continue to monitor.
--- NOTE | 2016-06-18 23:50 | NUR ---
PTT sample collected and sent to lab, awaiting results for Heparin Flowsheet.
[2016-06-19] VITALS (21 sets, daily range): BP systolic 92–121; BP diastolic 43–84
[2016-06-19 00:16] LABS: INR 1.01 (0.85-1.17); PROTIME 13.1 SECONDS (11.6-15.0)
[2016-06-19 00:42] LABS: APTT 91.1 SECONDS (22.8-39.4)
--- NOTE | 2016-06-19 00:48 | NUR ---
PTT result 91.1, rate decreased by 100 units and drip held for 30 min per protocol.
--- NOTE | 2016-06-19 01:16 | NUR ---
Heparin drip restarted at new rate, PTT scheduled for recheck in AM.
--- NOTE | 2016-06-19 02:55 | NUR ---
Reassessment completed per flowsheet, patient resting in bed with eyes closed. Patient NSR on telemetry with HR 79, rhythmic and regular. Breathing is even and unlabored, O2 sat 97% on 2L via NC. Upper pulses palpable, doppler used lower extremities. No further needs at this time, all VSS and will continue to monitor.
--- NOTE | 2016-06-19 05:08 | NUR ---
Patient resting in bed with eyes closed. R foot warm to touch, purple area around great toe. Patient rates pain 2/10 in foot, feels "much better than it did". No further needs at this time, all VSS and will continue to monitor.
[2016-06-19 06:02] LABS: BASOPHILS 0.3 % (0.0-2.0); EOSINOPHILS 4.1 % (0-7); HEMATOCRIT 26.8 % (36.0-48.0); HEMOGLOBIN 8.7 g/dL (12-16); IMMATURE GRANULOCYTES 4.1 % (0-5); LYMPHOCYTES 22.1 % (15-50); MCH 31.9 pg (26.0-34.0); MCHC 32.5 g/dL (31.0-37.0); MCV 98.2 fL (80.0-100.0); MEAN PLATELET VOLUME 9.1 fL (7.4-10.4); MONOCYTES 5.8 % (2-11); NEUTROPHILS 63.6 % (40-80); RBC 2.73 10x6/uL (4.00-5.40); RDW 13.4 % (11.5-14.5); WBC 15.8 10x3/uL (4.8-10.8)
[2016-06-19 06:24] LABS: INR 0.98 (0.85-1.17); PROTIME 12.9 SECONDS (11.6-15.0)
[2016-06-19 06:27] LABS: PLATELET COUNT 552 10x3/uL (130-400)
[2016-06-19 06:30] LABS: CALC OSMOLALITY 270 mosm/kg (275-300); CALCIUM 8.1 mg/dL (8.5-10.1); CARBON DIOXIDE 32.2 mmol/L (21.0-32.0); CHLORIDE - SERUM 100 mmol/L (98-107); CREATININE - SERUM 0.5 mg/dL (0.6-1.3); GLUCOSE 92 mg/dL (74-106); POTASSIUM - SERUM 4.6 mmol/L (3.5-5.1); SODIUM 136 mmol/L (136-145); eGFR NON AFRICAN AMERICAN > 90 mL/min (90-120)
[2016-06-19 06:34] LABS: UREA NITROGEN 9 mg/dL (7-18)
[2016-06-19 06:38] LABS: APTT 55.7 SECONDS (22.8-39.4)
--- NOTE | 2016-06-19 06:40 | NUR ---
PTT result 51.1, rate increased by 100 units with no bolus given. All VSS and will continue to monitor.
--- NOTE | 2016-06-19 08:56 | NUR ---
Nutrition follow-up: Diet: regular PO intake ~75% average of meals Pt is also drinking Ensure nutritional supplement Labs reviewed; albumin is 1.8 - very low; pt with edema present per nursing. Wt: 229# No BM charted since admit; pt using pain medication which could be causing constipation. Will speak with nursing re: stool softner PO intake is good at this time. Will encourage pt to increase intake of protein foods. RDN following.
--- NOTE | 2016-06-19 09:12 | NUR ---
DR ADLER IN TO SEE PATIENT. PT TEARFUL. UPSET ABOUT POTENTIAL OF AMPUTATING MORE THAN THE TOES. AT BEDSIDE. DR ADLER ADDRESSED ALL QUESTIONS ASKED.
--- NOTE | 2016-06-19 09:56 | NUR ---
PT ASSISTED UP TO CHAIR AT BEDSIDE PER REQUEST. MODERATE ASSIST REQUIRED.
--- NOTE | 2016-06-19 10:15 | NUR ---
PT COLACE GIVEN SINCE HAS NOT HAD BOWEL MOVEMENT IN MANY DAYS. OFFERED HER THE PRN MIRALAX, BUT WAS REFUSED.
--- NOTE | 2016-06-19 10:37 | NUR ---
FRESH LINENS PLACED ON BED. PT STILL UP IN CHAIR AT BEDSIDE. DENIES ANY NEEDS AT THIS TIME. CALL LIGHT IN REACH.
--- NOTE | 2016-06-19 11:15 | NUR ---
PT ASSISTED BACK TO BED FROM CHAIR PER HER REQUEST. DENIES ANY OTHER NEEDS AT THIS TIME. CALL LIGHT IN REACH.
--- NOTE | 2016-06-19 11:42 | NUR ---
SPECIMEN SENT TO LAB FOR PTT.
[2016-06-19 12:00] LABS: INR 0.96 (0.85-1.17); PROTIME 12.6 SECONDS (11.6-15.0)
--- NOTE | 2016-06-19 12:16 | NUR ---
PT SITTING UP EATING LUNCH. VISITORS AT BEDSIDE. HEPARIN RATE CHANGED TO 1600 UNITS/HR.
--- NOTE | 2016-06-19 14:38 | NUR ---
PT IS SLEEPING AT THIS TIME. NO DISTRESS NOTED. VSS.
--- NOTE | 2016-06-19 15:00 | NUR ---
REASSESSMENT COMPLETE. POSTERIOR TIBAL AND PEDAL PULSES VERIFIED VIA DOPPLER, BILATERALLY. PT EXPRESSES INCREASED SENSATION IN RIGHT FOOT.
--- NOTE | 2016-06-19 15:14 | NUR ---
PT AWAKE. TALKING ON CELL PHONE. NO DISTRESS NOTED.
--- NOTE | 2016-06-19 17:54 | NUR ---
BLOOD SPECIMEN SENT TO LAB FOR 1800 PTT PT/INR
[2016-06-19 18:05] LABS: INR 1.02 (0.85-1.17); PROTIME 13.2 SECONDS (11.6-15.0)
[2016-06-19 18:06] LABS: APTT 68.6 SECONDS (22.8-39.4)
--- NOTE | 2016-06-19 19:30 | NUR ---
REPORT RECEIVED AND CARE ASSUMED. INITIAL SHIFT ASSESSMENT PER FLOWSHEET. PT AAOX4. SPEECH CLEAR. PT NOT WEARING SUPPLEMENTAL O2 AT THIS TIME AND SPO2 95-96%. PT STATES IT BOTHERS HER. WILL REASSESS NEED THROUGHOUT THE SHIFT. IVF PER PUMP AND ALL RATES CHECKED. IV LINES ARE DATED AND LABELED AND ARE CURRENT NOT DUE TO BE CHANGED AT THIS TIME. PT REQUESTED TO TURN ONTO SIDE AND MINIMAL ASSISTANCE REQUIRED. PT STATES HER "BOTTOM" IS GETTING SORE BUT NO REDNESS VISIBLE ABNORMALITIES NOTED. BED FIRMNESS ADJUSTED TO SOFTER PER PT REQUEST AND PT STATED IT FELT BETTER. PEDAL PULSES PALPATED ARE QUESTIONABLE. VERY VERY WEAK, DOPPLERED AND VERY STRONG AND EASILY DOPPLERED BOTH PEDAL AND POST TIBIAL BILATERALLY. FEET ARE EQUALLY WARM TO TOUCH BOTH EDEMATOUS WITH RIGHT MORE THAN LEFT. DISCOLORATION PERSISTS IN RIGHT AND DURING BEDSIDE REPORT REPORTING NURSE INDICATED THIS DISCOLORATION HAS BEEN PERSISTANT THROUGHT THE DAY AND IS UNCHANGED. PT IS USING STEM THRESHING MACHINE OPERATOR DILAUDID FOR PAIN MANAGEMENT AND PT STATES IT IS PROVIDING ADEQUATE CONTROL. PT BEING MONITORED PER STANDARD CVICU PROTOCOL WITH ALL ALARMS SET AND VERIFIED. BED IN LOW POSITION CALL LIGHT IN REACH. PT STATES SHE RECEIVED A BATH TODAY AND DOES NOT WISH FOR ONE TONIGHT. PT TO RECEIVED ROUTINE HS CARE AT HER REQUEST.
--- NOTE | 2016-06-19 21:03 | NUR ---
HS MEDS GIVEN WITHOUT DIFFICULTY. PT TEACHING DONE PRIOR TO ADMINISTRATION. PT KNOWLEDEABLE ABOUT MEDS. SPOUSE AT BEDSIDE. UPDATED BY PT WHO IS AAOX4
--- NOTE | 2016-06-19 23:00 | NUR ---
SHIFT REASSESSMENT DONE SEE FLOWSHEET PT HAS BEEN SLEEPING RESP SHALLOW SPO2 REDUCED O2 AT 2L N/C HUMIDIFIED RESTARTED
[2016-06-20] VITALS (24 sets, daily range): BP systolic 94–126; BP diastolic 46–79
--- NOTE | 2016-06-20 03:00 | NUR ---
SHIFT REASSESSMENT COMPLETED. NO SIGNIFICANT CHANGES. PT IS USING IS WELL AND DEMONSTRATING GOOD TECHNIQUE DOING 2500ML CONSISTENTLY.
--- NOTE | 2016-06-20 05:25 | NUR ---
HEPARIN WAS STOPPED, LINE FLUSHED, HEPARIN STOPPED FOR 10 MINUTES, LINE FLUSHED AGAIN. WASTE OBTAINED AND LAB SPECIMEN OBTAINED AND SENT FOR ANALYSIS.
[2016-06-20 05:46] LABS: BASOPHILS 0.3 % (0.0-2.0); EOSINOPHILS 4.6 % (0-7); HEMATOCRIT 25.9 % (36.0-48.0); HEMOGLOBIN 8.3 g/dL (12-16); IMMATURE GRANULOCYTES 5.3 % (0-5); LYMPHOCYTES 22.2 % (15-50); MCH 31.7 pg (26.0-34.0); MCV 98.9 fL (80.0-100.0); MEAN PLATELET VOLUME 8.8 fL (7.4-10.4); MONOCYTES 5.2 % (2-11); NEUTROPHILS 62.4 % (40-80); PLATELET COUNT 645 10x3/uL (130-400); RBC 2.62 10x6/uL (4.00-5.40); RDW 13.6 % (11.5-14.5); WBC 17.2 10x3/uL (4.8-10.8)
[2016-06-20 06:42] LABS: INR 1.03 (0.85-1.17); PROTIME 13.3 SECONDS (11.6-15.0)
[2016-06-20 06:43] LABS: APTT 77.6 SECONDS (22.8-39.4)
[2016-06-20 06:46] LABS: CALC OSMOLALITY 265 mosm/kg (275-300); CALCIUM 8.2 mg/dL (8.5-10.1); CARBON DIOXIDE 29.5 mmol/L (21.0-32.0); CHLORIDE - SERUM 98 mmol/L (98-107); CREATININE - SERUM 0.6 mg/dL (0.6-1.3); GLUCOSE 113 mg/dL (74-106); POTASSIUM - SERUM 4.4 mmol/L (3.5-5.1); SODIUM 133 mmol/L (136-145); UREA NITROGEN 10 mg/dL (7-18); eGFR NON AFRICAN AMERICAN > 90 mL/min (90-120)
--- NOTE | 2016-06-20 14:13 | NUR ---
0730-RECIEVED AWAKE AND ALERT-NOTED AUDIBLE PEDAL PULSE MID FOOT-MARKED EDEMA TO FOOT-NOT ABLE TO DOPPLER AT DIGITS-PT ELEVATED R LEG-TRANSMISSION SUPERINTENDENT DILAUDID PT STATED CONTROLS PAIN AT 1-2 LEVEL- 0830-ASSISTED TO BEDSIDE CHAIR-NON R LEG WEIGHT BEARING-TOLERATED WELL AND LEG ELEVATED 0900-RELATIVE AT BEDSDIE-REVIEWED WITH PT DIQUIS LITERATURE AND PAPER INFO GIVEN 1000-DR ADLER AT BEDSIDE-AND REVIEWED WITH PT HER TREATMENT OPTIONS-QUESTIONS ADDRESSED-
--- NOTE | 2016-06-20 19:10 | NUR ---
REPORT RECEIVED AND INITIAL ASSESSMENT COMPLETE. SEE SHIFT ASSESSMENT FLOWSHEET. AAOX4, LUNG SOUNDS CLEAR, EVEN BILATERALLY. O2 IS CURRENTLY OFF PER PATIENT REQUEST. O2 SAT WAS 92% SO O2 RESUMED, PATIENT STATED UNDERSTANDING. S1S2 ON MONITOR WITH SINUS TACHY NOTED @ 104BPM. PRETTY DRAINING CLEAR YELLOW URINE TO GRAVITY, NO KINKS NOTED. PEDAL PULSE ON RIGHT FOOT DOPPLERED AND WAS STRONG, BILATERAL WITH LEFT FOOT. LEFT PEDAL PULSE PALPABLE AND+2. DISCOLORIZATION NOTED IN RIGHT FOOT, BUT HAS NOT WORSENED. NOTICABLE EDEMA IN BOTH LEGS, WORSE IN RIGHT. PICC LINE IN ALYSSA INFUSING NS @ 10ML/HR AND DILAUDID DISABILITY CASE MANAGER FOR PAIN PANAGEMENT PER ORDER. PATIENT AFEBRILE. STATES PAIN IN HER RIGHT FOOT IS A 5 AND MANAGEABLE. CL IN REACH AND DENIES FURTHER NEED. WILL MONITOR.
--- NOTE | 2016-06-20 21:00 | NUR ---
NIGHT MEDS GIVEN, APPLE JUICE GIVEN WITH REQUEST. NO VISITORS AT THIS TIME.
--- NOTE | 2016-06-20 23:05 | NUR ---
REASSESSMENT COMPLETE. NO CHANGES FROM PREVIOUS ASSESSMENT. SEE FLOWSHEET FOR DETAILS. RIGHT PEDAL PULSE PRESENT AND STRONG VIA DOPPLER. LEFT PEDAL PULSE PALPABLE BUT WEAK. VSS, DENIES NEED AT THIS TIME.
[2016-06-21] VITALS (24 sets, daily range): BP systolic 91–113; BP diastolic 46–81
--- NOTE | 2016-06-21 01:10 | NUR ---
PATIENT RESTING WITH EYES CLOSED. VSS.
--- NOTE | 2016-06-21 03:10 | NUR ---
REASSESSMENT COMPLETE. NO CHANGES. PEDAL PULSE PRESENT VIA DOPPLER. APPLE JUICE GIVEN PER REQUEST. VSS. WILL MONITOR.
--- NOTE | 2016-06-21 05:00 | NUR ---
PATIENT RESTING QUIETLY IN BED, VSS.
[2016-06-21 05:01] LABS: BASOPHILS 0.2 % (0.0-2.0); EOSINOPHILS 4.3 % (0-7); HEMATOCRIT 25.9 % (36.0-48.0); HEMOGLOBIN 8.3 g/dL (12-16); IMMATURE GRANULOCYTES 4.7 % (0-5); LYMPHOCYTES 18.2 % (15-50); MCH 31.8 pg (26.0-34.0); MCV 99.2 fL (80.0-100.0); MEAN PLATELET VOLUME 8.5 fL (7.4-10.4); MONOCYTES 5.7 % (2-11); NEUTROPHILS 66.9 % (40-80); PLATELET COUNT 747 10x3/uL (130-400); RBC 2.61 10x6/uL (4.00-5.40); RDW 13.6 % (11.5-14.5); WBC 17.5 10x3/uL (4.8-10.8)
[2016-06-21 05:11] LABS: APTT 57.6 SECONDS (22.8-39.4); INR 1.17 (0.85-1.17); PROTIME 14.8 SECONDS (11.6-15.0)
[2016-06-21 05:13] LABS: CALC OSMOLALITY 268 mosm/kg (275-300); CALCIUM 8.9 mg/dL (8.5-10.1); CARBON DIOXIDE 34.7 mmol/L (21.0-32.0); CHLORIDE - SERUM 100 mmol/L (98-107); CREATININE - SERUM 0.5 mg/dL (0.6-1.3); GLUCOSE 101 mg/dL (74-106); POTASSIUM - SERUM 4.7 mmol/L (3.5-5.1); SODIUM 135 mmol/L (136-145); UREA NITROGEN 11 mg/dL (7-18); eGFR NON AFRICAN AMERICAN > 90 mL/min (90-120)
--- NOTE | 2016-06-21 08:03 | NUR ---
AWAKES EASILY TO VERBAL STIMULI SKIN WARM AND DRY. PICC LINE DRESSING RIGHT ac DRY AND INTACT. INFUSING WITH NS AT KVO. MONITOR sr. BILATERAL LUNG SOUNDS EQUAL AND CLEAR. ABD SOFT WITH BOWEL SOUNDS PRESENT X 4 . PRETTY CATH PATENT AND DRAINING CLEAR ZENAIDA URINE. STATES PAIN AT 7 NOW PUSHED WOOD CHOPPER DILADID 0.6 MG Q 10 MIN. STATES THAT IT COMES DOWN TO A 3. RIGHT FOOT STILL PURPLE BIG TOE AND TOE NEXT TO IT AND LOWER PART OF FOOT AROUND TOES. FOOT IS WARM AND PULSES WIT DOPPLER PRESENT. LEFT FOOT IS WARM AND PINK. TURNS SELF IN BED BREAKFAST SERVED. SIDE RAILS ELEVATED. CALL LIGHT WITHIN HANDS REACH. OXYGEN ON A 2 LITERS PER nc.
--- NOTE | 2016-06-21 14:06 | NUR ---
PT ASSIST BACK TO BED WITH WALKER. PATIENT UNABLE TO BEAR WEIGHT ON RIGHT FOOT, HAD TO HOP WITH WALKER BACK TO BED. LEFT STILL DICOLORED BLUE PULSES WITH DOPPLER. PICC LINEN FLUSHES WITHOUT DIFFICULTY. PATIENT NAPPING AT INTERVALS
--- NOTE | 2016-06-21 18:12 | NUR ---
UP ON BSC. HUGE FIRM BROWN BM. STOOD AND HOPPED TO BED WITH LIGHT WEIGHT ON RIGHT FOOT. STANDING BETTER THIS EVENING WITH WALKER AND ASSISTANCES. EXCORATED AREA ON BOTH BUTTOCK WHERE HER CHEEKS TOUCH. OSWALDO'S BUTT PASTE APPLIED. PERINEAL CARE DONE. STATES PAIN IS MUCH BETTER AFTER PO PAIN MEDS PICC LINE DRESSING DRY AND INTACT. INFUSING WITH NS KVO. PRETTY PATENT DRAINING CLEAR ZENAIDA URINE.
--- NOTE | 2016-06-21 19:15 | NUR ---
REPORT RECEIVED AND CARE RESUMED. PATIENT SMILING AND SEEMED TO BE FEELING MUCH BETTER TONIGHT WHEN ENTERING ROOM. SAYS "SHE HAS HAD A BUSY AND PRODUCTIVE DAY, AND FEELS GOOD ABOUT HER PROGRESS". STATES SHE GOT OUT OF BED SEVERAL TIMES. AAOX4, BREATHING ROOM AIR WITH 02SAT 94-98%. LUNG SOUNDS CLEAR, RR EVEN BILATERAL. S1S2 NOTED WITH HR OF 85 OF NS ON MONITOR. BOWEL SOUNDS ACTIVE X4, STATES HAD A BOWEL MOVEMENT TODAY. NON-TENDER TO TOUCH. PRETTY DRAINING CLEAR YELLOW URINE TO GRAVITY AND WITHOUT KINKS. INCISION ON LEFT GROIN IN HEALING WELL. SITE IS C/D/I WITH NO SIGNS OF BLEEDING. MINIMAL BRUISING AROUND SITE. TEGADERM PLACED OVER SITE. LEGS/FEET STILL SWOLLEN. +2 IN RIGHT LEG/FOOT, +1 IN LEFT. STATES RIGHT LEG STILL HURTS, BUT FEELING MUCH BETTER. DISCOLORIZATION STILL IN RIGHT FOOT AND TOES, STARTING ABOUT MIDFOOT AND REACHING DOWN INTO GREATER TOE AND TOE NEXT TO IT. BOTH PEDAL PULSES DOPPLERED AND STRONG. BLISTER ALSO NOTED ON RIGHT FOOT. PICC LINE IN ALYSSA IS C/D/I. DRESSING AND BIOPATCH IN PLACE. VSS, WILL CONTINUE TO MONITOR.
--- NOTE | 2016-06-21 20:15 | NUR ---
NIGHT MEDS GIVEN. PAIN MED AND BENADRYL GIVEN WITH REQUEST. REPOSITIONED FOR COMFORT, DENIES FURHTER NEED AT THIS TIME.
--- NOTE | 2016-06-21 22:00 | NUR ---
PATIENT RESTING COMFORTABLY IN BED WITH EYES CLOSED. VSS.
--- NOTE | 2016-06-21 23:00 | NUR ---
REASSESSMENT COMPLETE. NO CHANGES FROM PREVIOUS. SEE REASSESSMENT FOR DETAILS. DENIES PAIN OR NEED AT THIS TIME. PEDAL PULSE PRESENT AND STRONG VIA DOPPLER.
[2016-06-22] VITALS (22 sets, daily range): BP systolic 87–114; BP diastolic 43–66
--- NOTE | 2016-06-22 03:00 | NUR ---
REASSESSMENT COMPLETE, NO CHANGES. APPLE JUICE GIVEN PER REQUEST. MINIMAL ASSISSTANCE GIVEN FOR REPOSISTIONING.
[2016-06-22 05:07] LABS: BASOPHILS 0.4 % (0.0-2.0); EOSINOPHILS 4.8 % (0-7); HEMATOCRIT 25.9 % (36.0-48.0); HEMOGLOBIN 8.3 g/dL (12-16); LYMPHOCYTES 18.7 % (15-50); MCH 31.7 pg (26.0-34.0); MCV 98.9 fL (80.0-100.0); MEAN PLATELET VOLUME 8.6 fL (7.4-10.4); NEUTROPHILS 64.1 % (40-80); PLATELET COUNT 850 10x3/uL (130-400); RBC 2.62 10x6/uL (4.00-5.40); RDW 13.8 % (11.5-14.5); WBC 18.1 10x3/uL (4.8-10.8)
--- NOTE | 2016-06-22 05:10 | NUR ---
DENIES NEED AT THIS TIME. RESTING QUIETLY IN BED. VSS.
[2016-06-22 05:32] LABS: INR 1.25 (0.85-1.17); PROTIME 15.6 SECONDS (11.6-15.0)
[2016-06-22 05:33] LABS: APTT 40.1 SECONDS (22.8-39.4); CALC OSMOLALITY 271 mosm/kg (275-300); CALCIUM 8.6 mg/dL (8.5-10.1); CARBON DIOXIDE 33.9 mmol/L (21.0-32.0); CHLORIDE - SERUM 100 mmol/L (98-107); CREATININE - SERUM 0.6 mg/dL (0.6-1.3); GLUCOSE 98 mg/dL (74-106); POTASSIUM - SERUM 4.9 mmol/L (3.5-5.1); SODIUM 136 mmol/L (136-145); UREA NITROGEN 13 mg/dL (7-18); eGFR NON AFRICAN AMERICAN > 90 mL/min (90-120)
--- NOTE | 2016-06-22 09:37 | NUR ---
PATIENT AWAKES EASILY TO VERBAL STIMULI. SLEEPING WELL THIS AM. SKIN WARM AND DRY. ABD SOFT WITH HYPOACTIVE BOWEL SOUNDS. BILATERAL LUNG SOUNDS CLEAR AND EQUAL. PEDAL PULSES WITH DOPPLER. 3 BLISTERS ON RIGHT FOOD. STILL AREAS OF BLUE/PURPLE ON RIGHT FOOT AND BIG TOE AND TOE NEXT TO IT. VERY PAINFUL TO MOVE RIGHT FOOT. PO PAIN MEDS PERCOCET GIVEN AND EFFECTIVE. STILL USES CHAIN PULLER FOR ACUTE ONSET OF PAIN WITH MOVEMENT. UP IN CHAIR WITH PHYSICAL THERAPY AND WALKER. STANDING BETTER TODAY. VERY LIGHT WEIGHT ON RIGHT FOOT. HOPS WITH LEFT FOOT AN WALKER. ATE GOOD BREAKFAST AND DRINKING HER ENSURE. PRETTY CATH PATENT DRAINING CLEAR ZENAIDA URINE. MONITOR SR. NO OXYGEN OVER NIGHT. TOLERATED WELL. RIGHT AC PICC LINE DRESSING DRY AND INTACT NO REDNESS OR DRAINAGE AT SITE. INFUSING WITH NS AT KVO. PO MEDS TAKEN WITHOUT DIFFICULTY.
--- NOTE | 2016-06-22 14:42 | NUR ---
COMPLETE BED BATH GIVEN. PATEINT RED IN FRONT AND BACK OF PERINEAL AREA WITH SMALL RED DOTS AROUND IT. LOTION AND BUTT PASTE APPLIED. REPORTED TO DR. ADLER ADDITIONAL BLISTERS NOTED ON RIGHT FOOT. CONTINUES TO BE PURPLE BLUE IN COLOR BIG TOE AND TOE NEXT TO IT. AREAS OF FOOT ARE STILL BLUE AND PURPLE
--- NOTE | 2016-06-22 19:30 | NUR ---
REC'D PT RESTING IN BED ON ROOM AIR, AWAKE, ALERT, ORIENTED X 3, RIGHT UPPER ARM PICC LINE WITH NS @ 10CC/HR AND DILAUDID ECHOCARDIOGRAPHY RADIOLOGY TECHNOLOGIST 0.2MG Q6MIN WITH 4MG Q4HR LOCKOUT, PT RATING PAIN "4" ON 0-10 PAIN SCALE, PRETTY PATENT DRAINING CLEAR YELLOW URINE, RIGHT FOOT WITH 2+ EDEMA BLISTERS TO TOP OF FOOT WITH BLUISH PURPLE COLOR TO MIDFOOT DOWN TO GREAT AND 2ND TOE, REST OF FOOT REMAINS PINK AND WARM, FOOT SENSITIVE TO TOUCH, HEELS BRIDGED, PT REQUESTING PAIN PILL AT THIS TIME, SR UP X 2 , CALL LIGHT IN REACH.
--- NOTE | 2016-06-22 19:37 | NUR ---
HYDROCODONE GIVEN PO FOR BREAKTHROUGH PAIN, PT RATING PAIN "6-7" AT THIS TIME, BP STABLE WILL CONT TO MONITOR FOR CHANGES.
--- NOTE | 2016-06-22 21:00 | NUR ---
EVENING MEDS GIVEN, PT REQUESTING BENADRYL FOR ITCHING, NO VISITORS IN AT THIS TIME.
--- NOTE | 2016-06-22 21:10 | NUR ---
BENADRYL 25MG GIVEN PO REQUESTED, PT DENIES FURTHER NEEDS.
--- NOTE | 2016-06-22 23:12 | NUR ---
PT RESTING ON RIGHT SIDE EYES CLOSED, RESP EVEN AND UNLABORED, REASSESSMENT COMPLETED, NO CHANGES FROM PREVIOUS ASSESSMENT.
[2016-06-23] VITALS (23 sets, daily range): BP systolic 91–131; BP diastolic 44–71
--- NOTE | 2016-06-23 01:30 | NUR ---
NO CHANGES IN STATUS, VSS, WILL CONT TO MONITOR FOR CHANGES.
--- NOTE | 2016-06-23 03:45 | NUR ---
REASSESSMENT COMPLETED, RIGHT FOOT REMAINS WITH BLISTERS AND DISCOLORATION, PULSES BY DOPPLER, VSS, WILL CONT TO MONITOR FOR CHANGES.
--- NOTE | 2016-06-23 05:45 | NUR ---
AM LAB DRAWN FROM CV AND SENT TO LAB.
--- NOTE | 2016-06-23 06:15 | NUR ---
AM MEDS GIVEN WITH SIPS OF WATER, PT DENIES FURTHER NEEDS, NO VISITORS IN AT THIS TIME
[2016-06-23 06:26] LABS: CALC OSMOLALITY 264 mosm/kg (275-300); CALCIUM 8.7 mg/dL (8.5-10.1); CARBON DIOXIDE 31.5 mmol/L (21.0-32.0); CHLORIDE - SERUM 97 mmol/L (98-107); CREATININE - SERUM 0.6 mg/dL (0.6-1.3); GLUCOSE 88 mg/dL (74-106); POTASSIUM - SERUM 4.7 mmol/L (3.5-5.1); SODIUM 132 mmol/L (136-145); UREA NITROGEN 14 mg/dL (7-18); eGFR NON AFRICAN AMERICAN > 90 mL/min (90-120)
[2016-06-23 06:32] LABS: APTT 46.4 SECONDS (22.8-39.4); INR 1.36 (0.85-1.17); PROTIME 16.7 SECONDS (11.6-15.0)
--- NOTE | 2016-06-23 07:30 | NUR ---
PT AWAKE AND CONVERSANT. DENIES PAIN OR NEEDS AT THIS TIME. SAYS PAIN IS LESS AND HAS BEEN CONTROLLED BY ORAL AND IV MEDICATIONS. RIGHT FOOT EDEMATOUS 3+ PITTING. GREAT TOE AND SECOND DISCOLORED. BLISTERING OF FOOT NOTED. PULSES NON-PALPABLE, PRESENT WITH DOPPLER
--- NOTE | 2016-06-23 08:58 | NUR ---
Rehab Prescreening Consult recieved and the chart has been reviewed. She is [facility] and will require a preauth. Allie Rodriges RN Clinical Liaison, Rehab
--- NOTE | 2016-06-23 10:30 | NUR ---
PT SITTING UP IN CHAIR AT BEDSIDE. CALL LIGHT IN REACH.
--- NOTE | 2016-06-23 12:00 | NUR ---
PT SITTING UP IN CHAIR AT BEDSIDE. HAS EATEN LUNCH. PULLING 1750 ON I.S.
--- NOTE | 2016-06-23 14:38 | NUR ---
Nutrition follow-up: Diet: Regular PO intake 75-100% of most meals Labs reviewed RDN following.
--- NOTE | 2016-06-23 14:41 | NUR ---
PT UP WITH PHYSICAL THERAPY. FRESH LINENS PLACED ON BED. PT HAS HAD HAIR WASHED WITH SHOWER CAP. SHE IS NOT STANDING AT THE SINK WASHING HER FACE. NO DISTRESS NOTED. PT USING WALKER.
--- NOTE | 2016-06-23 15:42 | NUR ---
All information except the OT eval faxed to [facility] for rehab authorization. Will fax the OT eval when completed. Allie Rodriges RN Clinical Liaison, Rehab
--- NOTE | 2016-06-23 17:00 | NUR ---
PT HAS COMPLETED EATING DINNER. SAT UP TO EDGE OF BED TO EAT. PT IS ABLE TO REPOSITION SELF MUCH MORE ON HER OWN, REQUIRING VERY LITTLE HELP. ATE ALL OF HER DINNER AND TOTAL OF HER ENSURE. DENIES ANY FURTER NEEDS. BED LOW. CALL LIGHT IN REACH.
--- NOTE | 2016-06-23 18:07 | NUR ---
FAMILY AT BEDSIDE AT THIS TIME.
--- NOTE | 2016-06-23 19:00 | NUR ---
REPORT RECEIVED AND ASSESSMENT COMPLETED. SEE FLOWSHEET. PT IS LEFT ARM RESERVE. PICC IN RIGHT UPPER ARM. HAND WOODWORKING SANDER. DILAUDED 0.2MG Q6MIN AND NS @ KVO. RIGHT FOOT IS DICOLORED IN GREAT AND 2ND TOE. BLISTERES HAVE BEEN DRAINED BY LICHA PER DR PATINO. FOOT IS NOW BANDAGED. DRESSING CDI. PEDAL PULSES FOUND USING DOPPLER. VSS. WILL CONTINUE TO MONITOR.
--- NOTE | 2016-06-23 21:27 | NUR ---
2100 MEDS GIVEN. NO OTHER CHANGES IN STATUS AT THIS TIME. VSS. WILL CONTINUE TO MONITOR.
--- NOTE | 2016-06-23 23:26 | NUR ---
REASSESSMENT COMPLETED. SEE FLOWSHEET FOR FULL DETAILS. PT REPOSITIONED SELF ON RIGHT SIDE. DENIES ANY COMFORT NEEDS AT THIS TIME. VSS. WILL CONTINUE TO MONITOR.
[2016-06-24] VITALS (19 sets, daily range): BP systolic 92–121; BP diastolic 40–99
[2016-06-24 01:09] LABS: INR 1.19 (0.85-1.17); PROTIME 14.9 SECONDS (11.6-15.0)
--- NOTE | 2016-06-24 03:00 | NUR ---
REASSESSMENT COMPLETED. SEE FLOWSHEET FOR FULL DETAILS. BANDAGE CHANGED OVER BLISTERS ON RIGHT FOOT. VSS. WILL CONTINUE TO MONITOR.
--- NOTE | 2016-06-24 05:18 | NUR ---
PT SLEEPING BUT EASILY AROUSED. COLLECTED I&O. NO OTHER CHANGES AT THIS TIME. VSS. WILL MONITOR.
[2016-06-24 06:35] LABS: APTT 39.7 SECONDS (22.8-39.4); INR 1.16 (0.85-1.17); PROTIME 14.7 SECONDS (11.6-15.0)
[2016-06-24 06:59] LABS: ALBUMIN 1.8 g/dL (3.4-5.0); ALKALINE PHOSPHATASE 124 U/L (46-116); ALT (SGPT) 30 U/L (10-68); CALC OSMOLALITY 266 mosm/kg (275-300); CALCIUM 8.7 mg/dL (8.5-10.1); CARBON DIOXIDE 30.7 mmol/L (21.0-32.0); CHLORIDE - SERUM 97 mmol/L (98-107); CREATININE - SERUM 0.6 mg/dL (0.6-1.3); GLUCOSE 95 mg/dL (74-106); POTASSIUM - SERUM 4.8 mmol/L (3.5-5.1); SODIUM 133 mmol/L (136-145); UREA NITROGEN 14 mg/dL (7-18); eGFR NON AFRICAN AMERICAN > 90 mL/min (90-120)
[2016-06-24 07:12] LABS: BASOPHILS 0.4 % (0.0-2.0); EOSINOPHILS 4.3 % (0-7); HEMOGLOBIN 8.3 g/dL (12-16); LYMPHOCYTES 18.3 % (15-50); MCH 31.3 pg (26.0-34.0); MCHC 31.9 g/dL (31.0-37.0); MCV 98.1 fL (80.0-100.0); MEAN PLATELET VOLUME 8.5 fL (7.4-10.4); MONOCYTES 5.6 % (2-11); NEUTROPHILS 64.4 % (40-80); PLATELET COUNT 987 10x3/uL (130-400); RBC 2.65 10x6/uL (4.00-5.40); RDW 13.8 % (11.5-14.5); WBC 17.4 10x3/uL (4.8-10.8)
[2016-06-24 15:22] LABS: APTT 37.3 SECONDS (22.8-39.4); INR 1.39 (0.85-1.17)
[2016-06-24 18:10] LABS: FACTOR II DNA ANALYSIS Negative (())
--- NOTE | 2016-06-24 19:30 | NUR ---
REPORT RECEIVED AND CARE ASSUMED. INITIAL SHIFT ASSESSMENT COMPLETED SEE FLOWSHEET. ALL LINES AND FLUIDS ARE DATED AND LABELED APPROPRIATELY AND ARE CURRENT. IVF PER PUMP AND ARE DOCUMENTED ON FLOWSHEET. PT UP IN CHAIR AT TIME OF ASSESSMENT. TOLERATING WELL. STATES SHE AMBULATED IN HALLWAY WITH PT TWICE TODAY AND DID WELL. PT BEING MONITORED PER STANDARD CVICU PROTOCOL WITH ALL ALARMS SET AND VERIFIED. CALL LIGHT IN REACH.
--- NOTE | 2016-06-24 21:00 | NUR ---
PT HAS BEEN ASSISTED BACK TO BED WITHOUT DIFFICULTY. HS MEDS GIVEN WITHOUT ANY SWALLOWING DIFFICULTY NOTED. PT DENIES NEEDS AT THIS TIME. REFUSED BATH STATING SHE WOULD GET ONE WHEN UP IN THE MORNING. NO VISITORS AT THIS TIME.
--- NOTE | 2016-06-24 23:00 | NUR ---
SHIFT REASSESSMENT COMPLETED WITHOUT SIGNIFICANT CHANGES. PT HAS BEEN SLEEPING WELL RESP REG AND NONLABORED. PT ASSISTED WITH REPOSITIONING Q2H AND BUTT PASTE HAS BEEN APPLIED TO BUTTOCKS FOR REDNESS. PT DENIES NEEDS
[2016-06-25] VITALS (16 sets, daily range): BP systolic 89–119; BP diastolic 36–76
--- NOTE | 2016-06-25 01:00 | NUR ---
RESP REG AND NONLABORED
--- NOTE | 2016-06-25 03:00 | NUR ---
REASSESSMENT COMPLETE, NO CHANGES NOTED, PT RESTING COMFORTABLY AT THIS TIME, DENIES ANY PAIN OR NEEDS, WILL CON'T TO MONITOR
--- NOTE | 2016-06-25 05:51 | NUR ---
CVL DRESSING CHANGED USING STERILE TECHNIQUE. PT TOLERATED WELL. LAB DRAWN FROM PICC AND SENT FOR ANALYSIS PER ORDER. CLAMPED LINE OF PICC FLUSHED WITH NS. AM MEDS GIVEN WITHOUT DIFFICULTY. PT DENIES NEEDS. HAS SLEPT WELL TONIGHT
[2016-06-25 06:30] LABS: CALC OSMOLALITY 271 mosm/kg (275-300); CALCIUM 8.9 mg/dL (8.5-10.1); CARBON DIOXIDE 30.1 mmol/L (21.0-32.0); CHLORIDE - SERUM 100 mmol/L (98-107); CREATININE - SERUM 0.6 mg/dL (0.6-1.3); GLUCOSE 95 mg/dL (74-106); POTASSIUM - SERUM 4.9 mmol/L (3.5-5.1); SODIUM 135 mmol/L (136-145); UREA NITROGEN 17 mg/dL (7-18); eGFR NON AFRICAN AMERICAN > 90 mL/min (90-120)
--- NOTE | 2016-06-25 07:30 | NUR ---
SHIFT ASSESSMENT COMPLETE. SEE FLOW SHEET FOR FINDINGS. PT ALERT AND CONVERSANT. RIGHT FOOT WRAPPED WITH GAUZE. NO DRAINAGE NOTED. PT ON ROOM AIR.
--- NOTE | 2016-06-25 13:24 | NUR ---
CALLED DR PATINO OFFICE. HE IS OUT FOR THE DAY. SPOKE WITH HIS NURSE ARMANDO, THEY ARE OKAY FOR PATIENT TO TRANSFER TO FLOOR. LET HER KNOW THE PATIENT'S BLISTER AT GREAT TOE HAS BECOME MUCH LARGER. NO DRAINAGE FROM BLISTER THAN WAS DRAINED ON THURSDAY. WANTS US TO KEEP GAUZE WRAP ON FOOT TO PROTECT SITE FROM OUTSIDE DEBRID SHOULD THE BLISTER RUPTURE WHEN PT IS UP WALKING IN THE BOOT.
--- NOTE | 2016-06-25 13:30 | NUR ---
BLADDER TRAINING STARTED ON PATIENT. PRETTY CATH CLAMPED AT THIS TIME.
--- NOTE | 2016-06-25 14:38 | NUR ---
PT UP TO WALK WITH PHYSICAL THERAPY.
--- NOTE | 2016-06-25 14:52 | NUR ---
Recieved a fax fro Loni Valenzuela LPN with [facility]. This patient is approved 7 days for acute inpatient rehab with [facility] 06/25/16. U/D due on 07/02/16 to Loni Valenzuela or . AUTH #[id number]. She will be accepted to the rehab unit today if physician agrees. Allie Rodriges RN CL
--- NOTE | 2016-06-25 15:00 | NUR ---
LATE ENTRY FROM 06/25/16 0930 AM Patient Name: MICHELLE WALTER Encounter No: [id number] : 1950 Primary Insurance: [facility] MEDICARE ADV Anticipated DC Date: 06-25-2016 Planned Disposition: Inpatient Rehab External Planned Provider: [facility] DCP follow-up note: RE-ASSESSMENT OF DC PLAN--PT PLANS TO DC TO [facility]. REFERRAL HAS BEEN SENT BY IP REHAB TO [facility] FOR REHAB APPROVAL. AWAITING INS. DETERMINATION. WILL FOLLOW AND ASSIST NEEDED. Maria A Mujica RN, CM
[2016-06-25] MEDS ORDERED: DIFLUCAN100 MG PO (16:40)
[2016-06-25] MEDS ORDERED: ELIQUIS5 MG PO (16:40)
[2016-06-25] MEDS ORDERED: MIRALAX17 GM PO (16:41)
[2016-06-25] MEDS ORDERED: COLACE100 MG PO (16:41)
[2016-06-25] MEDS ORDERED: ASPIRIN EC81 M1 PO (16:41)
--- NOTE | 2016-06-25 17:50 | NUR ---
DISCHARGE PAPERWORK COMPLETED FOR PT TO DISCHARGE TO REHAB. HAVE ATTEMPTED 2 TIMES OVER THE LAST 15 MINUTES TO CALL REPORT. GET NO ANSWER. WILL ATTEMPT AGAIN IN A FEW MINUTES.
--- NOTE | 2016-06-25 18:30 | NUR ---
REPORT CALLED TO [facility] IN REHAB. PT HAS HAD BILATERAL DVT IN LOWER EXTREMITIES. DVT RESOLVED, RIGHT FOOT GREAT TOE AND SECOND NECROTIC. THERE ARE BLISTERS ON THE RIGHT FOOT AND IT IS WRAPPED WITH GAUZE. PT HAS RIGHT UPPER ARM PICC LINE. IS RESERVED LEFT ARM DUE TO MASTECTOMY WITH LYMPH NODE REMOVAL. PT HAS HISTORY OF IMMUNE THROMBOCYTOPENIC PURPURA. CURRENTLY HAS PRETTY CATHETER AND IS IN BLADDER TRAINING. LAST CLAMP/UNCLAMP WAS AT 17:50PM. PT HAS HAD BOWEL MOVEMENT TODAY. RAFIQ-AREA RED, USING BUTTPASTE AND PT IS GETTING DIFLUCAN AND HAS 3 MORE DOSES LEFT IN TREATMENT. PULSES IN FEET ARE BY DOPPLER. PT HAS BEEN IN SINUS RHYTHM. HAS PERCOCET FOR PAIN AND HAS HAD 1 DOSE TODAY.
--- NOTE | 2016-07-08 08:17 | EC ---
PATIENT:MICHELLE WALTER DATE OF SERVICE: 06/13/16 SEX: F MEDICAL RECORD: [id number] DATE OF : [birth year] LOCATION:[place] [address] AGE OF PATIENT: 65 ADMISSION DATE: 06/13/16 REFERRING PHYSICIAN: INTERPRETING PHYSICIAN: TANNER NICOLE M.D. ECHOCARDIOGRAM REPORT ECHO CHARGES 4 ECHO COMPLETE CLINICAL DIAGNOSIS: COAGULAPATHY/EDEMA ECHOCARDIOGRAPHIC MEASUREMENTS (adult normal given) AC root (d.<3.7cm) 3.1 LV Septum d (<1.2 cm> 1.5 Valve Excursion 1.9 LV Septum (systole) 1.9 Left Atria (s.<4.0cm> 3.9 LVPW d(<1.2cm) 1.2 RV (d.<2.3cm) 2.7 LVPW (sytole) 1.6 LV diastole(<5.6CM) 5.4 MV E-F(>70mm/sec) LV systole 3.1 LVOT Diameter 1.9 MV exc.(>10mm) Est.ejection fraction (50-75%) Pericardial Effusion N DOPPLER: LVIT A 79.0 E 96.0 LA RVSP 36.0 LVOT 103 AOP1/2T Asc. Ao 156 RVOT 76.0 RA PA 102 AV Gradient Peak 9.7 AV Mean 4.9 AV Area 1.7 MV Gradient Peak 4.7 MV Mean 2.3 MV Area COMMENTS: Proposal Specialist: Shira BALDERRAMA Cold Header Operator:Marina Nicole TAPE# PACS DATE OF SERVICE: 06/14/2016 REFERRING PHYSICIAN: Dr. Sweeney. INDICATION: Edema. DESCRIPTION: Left ventricle demonstrates left ventricular hypertrophy. No wall motion abnormalities are noted. Estimated ejection is 60%. Mitral valve is structurally normal. There is mild regurgitation noted. Left atrium is normal in size. The aortic valve is trileaflet. There is no stenosis or regurgitation ECHOCARDIOGRAM REPORT [id number] MICHELLE WALTER seen. Right ventricle is mildly dilated. Tricuspid valve is structurally normal. There is trivial regurgitation seen. Right ventricular systolic pressure is mildly elevated at 36 mmHg. There is no pericardial effusion noted. IMPRESSION: 1. Left ventricular hypertrophy with preserved ejection fraction of 60%. 2. Mild mitral regurgitation. TRANSINT:[id number] Voice Confirmation ID: [id number] DOCUMENT ID: [id number] TANNER NICOLE M.D. at 0817 CC: [id number] DICTATION DATE: 06/14/161910 SENIOR SPECIALIST: 06/14/16 193 DIS IN 06/25/16 [facility] [address] [place] [id number]
== END 2016-06-25 19:11 | DRG 271 ==
LOC: D.CVICU 18:32 → D.M2 18:32 → D.CVICU 06-14 16:29
PROVIDERS: Emergency Medicine; Family Medicine Adult Medicine; Internal Medicine Cardiovascular Disease; Internal Medicine Hematology & Oncology; Radiology Diagnostic Radiology; Radiology Vascular & Interventional Radiology; ADMIT Family Medicine
PROC: B41F1ZZ Fluoroscopy of Right Lower Extremity Arteries using Low Osmolar Contrast (ICD-10-PCS; 2016-06-14)
PROC: B4101ZZ Fluoroscopy of Abdominal Aorta using Low Osmolar Contrast (ICD-10-PCS; 2016-06-14)
PROC: 04CK3ZZ Extirpation of Matter from Right Femoral Artery, Percutaneous Approach (ICD-10-PCS; principal; 2016-06-14 15:00)
PROC: 04CK3ZZ Extirpation of Matter from Right Femoral Artery, Percutaneous Approach (ICD-10-PCS; 2016-06-15)
PROC: 04CM3ZZ Extirpation of Matter from Right Popliteal Artery, Percutaneous Approach (ICD-10-PCS; 2016-06-15)
PROC: B41D1ZZ Fluoroscopy of Aorta and Bilateral Lower Extremity Arteries using Low Osmolar Contrast (ICD-10-PCS; 2016-06-15)
PROC: 3E05317 Introduction of Other Thrombolytic into Peripheral Artery, Percutaneous Approach (ICD-10-PCS; 2016-06-15)
PROC: 047V3ZZ Dilation of Right Foot Artery, Percutaneous Approach (ICD-10-PCS; 2016-06-16)
DX: I82.413 Acute embolism and thrombosis of femoral vein, bilateral (principal); L03.116 Cellulitis of left lower limb; I70.263 Atherosclerosis of native arteries of extremities with gangrene, bilateral legs; I82.433 Acute embolism and thrombosis of popliteal vein, bilateral; E03.9 Hypothyroidism, unspecified; F32.9 Major depressive disorder, single episode, unspecified; Z85.3 Personal history of malignant neoplasm of breast

== ENCOUNTER 2016-06-25 19:00 | Inpatient (IN) | payer MEDICARE ==
[~2016-06-25] VITALS: Ht 165.1 cm; Wt 98.4 kg
--- NOTE | 2016-06-25 19:10 | NUR ---
PT CAME TO UNIT FROM ACUTE FLOOR VIA WC PROPELLED BY STAFF. ADMITTED TO ROOM 1117A TO DR BALDERAS SERVICES. VSS. PT IS ALERT AND ORIENTED X 4. DENIES ANY ACUTE DISCOMFORT AT THIS TIME. LEFT FOOT NOTED TO HAVE 3+ EDEMA, AND 1ST AND 2ND TOE ARE BLACK IN COLOR. UNABLE TO PALPATE PEDAL PULSES. REPORTED TO BE PRESENT WITH A DOPPLER. PT STATES HER FOOT LOOKS MUCH BETTER, AND IS GETTING BETTER EVERY DAY. SHE DENIES ACUTE PAIN IN IT. PT HAS A RESERVE LEFT ARM FOR HX OF A MASTECTOMY. PRETTY CATH IS PATENT AND DRAINING TO A GRAVITY BAG. BLADDER TRNG IS IN PROGRESS. PT ORIENTED TO ROOM AND UNIT RULES WITH VERBAL UNDERSTANDING VOICED. SR'S ARE UP X 2 IN BED. CALL LIGHT AND BEDSIDE TABLE ARE WITHIN EASY REACH.
[2016-06-25 20:00] VITALS: BP 111/65
--- NOTE | 2016-06-25 22:38 | NUR ---
PT IS RESTING QUIETLY IN BED WITH EYES CLOSED. RESPS ARE EVEN AND UNLABORED. NO ACUTE DISTRESS NOTED.
--- NOTE | 2016-06-26 01:20 | NUR ---
PT RESTING IN BED WITH EYES CLOSED.
--- NOTE | 2016-06-26 03:20 | NUR ---
RESTING IN BED WITH EYES CLOSED.
--- NOTE | 2016-06-26 04:10 | NUR ---
RESTING IN BED, SUPINE, EYES CLOSED. APPEARS COMFORTABLE.
[2016-06-26 05:09] VITALS: BMI 36.1
[2016-06-26 06:35] LABS: BASOPHILS 0.8 % (0.0-2.0); EOSINOPHILS 3.3 % (0-7); HEMATOCRIT 26.8 % (36.0-48.0); HEMOGLOBIN 8.6 g/dL (12-16); IMMATURE GRANULOCYTES 7.3 % (0-5); LYMPHOCYTES 22.6 % (15-50); MCH 31.5 pg (26.0-34.0); MCHC 32.1 g/dL (31.0-37.0); MCV 98.2 fL (80.0-100.0); MEAN PLATELET VOLUME 8.4 fL (7.4-10.4); MONOCYTES 7.1 % (2-11); NEUTROPHILS 58.9 % (40-80); PLATELET COUNT 968 10x3/uL (130-400); RBC 2.73 10x6/uL (4.00-5.40); RDW 14.3 % (11.5-14.5); WBC 15.6 10x3/uL (4.8-10.8)
[2016-06-26 06:51] LABS: CALC OSMOLALITY 269 mosm/kg (275-300); CALCIUM 8.7 mg/dL (8.5-10.1); CARBON DIOXIDE 27.4 mmol/L (21.0-32.0); CHLORIDE - SERUM 100 mmol/L (98-107); CREATININE - SERUM 0.7 mg/dL (0.6-1.3); GLUCOSE 83 mg/dL (74-106); POTASSIUM - SERUM 4.7 mmol/L (3.5-5.1); SODIUM 135 mmol/L (136-145); UREA NITROGEN 16 mg/dL (7-18); eGFR NON AFRICAN AMERICAN 89 mL/min (90-120)
--- NOTE | 2016-06-26 07:25 | NUR ---
SITTING ON SIDE OF THE BED.
[2016-06-26 09:00] VITALS: BP 119/69
--- NOTE | 2016-06-26 10:06 | RHP ---
PATIENT: MICHELLE WALTER MEDICAL RECORD: [id number] ACCOUNT: [id number] LOCATION:[facility]1117 : [birth year] ADMISSION DATE: 06/25/16 REHABILITATION HISTORY AND PHYSICAL EXAMINATION POST ADMISSION PHYSICIAN EXAMINATION DATE OF ADMISSION: 06/25/2016 ADMITTING DIAGNOSES: Acute critical right lower limb ischemia, atherosclerosis of right lower extremity with gangrene and bilateral deep venous thromboses. HISTORY OF PRESENT ILLNESS: The patient is a 65-year-old female patient, who was admitted with acute critical right lower limb ischemia, bilateral DVTs and gangrene of her right lower extremity. She complained of discoloration in the right foot for 3 weeks associated with fatigue, weakness, stiffness, joint swelling, decreased range of motion, functional deficits and abnormal gait. On exam, she has prolonged capillary refill, decreased range of motion, swelling, tenderness, abnormal gait, edema and right foot erythema extending up to the ankle. Her right first and second toes have necrotic discoloration. She was treated for right foot revascularization thrombolytic therapy. This had reached a point where ortho was consulted for possible amputation after treatment. She had right foot necrosis of first 2 toes, unresolved bilateral DVTs. She has got occlusion of the right popliteal that is likely embolic despite thrombectomy. Given this, she would likely need an AKA for it to heal. After discussing this with her, she had resolution of her symptoms and would like to give this more time. Discussed with Dr. San from ortho, who is okay from his standpoint to start Eliquis and follow up. Previously, she was independent with ADLs and mobility without device. Currently, she cannot ambulate and will need rehabilitation on discharge from the hospital. She is moderate to max assist for ADLs and mobility using a rolling walker, gait belt, walking boot, and PT assistance. COMORBIDITIES: In this patient include acute bilateral DVT of femoral veins, acute bilateral DVT of popliteal veins, peripheral vascular disease; history of ITP, status post splenectomy; breast cancer, status post mastectomy; leukocytosis, neuropathy, joint pain and swelling, functional deficits, gait abnormality, cellulitis to her foot, necrotic toes to her foot, hypotension, anxiety and depression. PAST MEDICAL HISTORY: Significant for anxiety, depression, DVT, peripheral vascular disease, gait abnormality and cellulitis. PAST SURGICAL HISTORY: Includes hysterectomy, gallbladder surgery, mastectomy and splenectomy. ALLERGIES: CLINDAMYCIN AND ALSO, SHE IS ALLERGIC TO VANCOMYCIN. CURRENT MEDICATIONS: Include Effexor 225 mg daily, Synthroid 75 mcg daily, Diflucan 100 mg daily, aspirin 81 mg daily, Arimidex 1 mg daily, Benadryl 25 mg q.6 hours p.r.n., Inderal 10 mg q.h.s., polyethylene glycol 17 grams in 8 ounces of water daily, [place] 5/325 one tab q.4 hours p.r.n., Neurontin 300 mg b.i.d., Colace 100 mg b.i.d., BuSpar 5 mg b.i.d. p.r.n. and Eliquis 10 mg b.i.d. HABITS: No current alcohol or tobacco use. HISTORY AND PHYSICAL [id number] MICHELLE WALTER FAMILY HISTORY: Noncontributory. SOCIAL HISTORY: The patient hopes to return back home with her . REVIEW OF SYSTEMS: GENERAL: Denies weakness or fatigue. HEENT: Denies cold, cough, or congestion. CARDIOVASCULAR: Denies chest pain. PHYSICAL EXAMINATION: VITAL SIGNS: Stable, afebrile. GENERAL: A well-developed female in no acute distress, alert upon exam. HEENT: Normocephalic, atraumatic. Mucosa moist. NECK: Supple. No lymphadenopathy. LUNGS: Clear at this time. HEART: Regular rate and rhythm. ABDOMEN: Benign. EXTREMITIES: She does have a little bit of edema in her extremities, noted to have some discoloration to her first 2 digits of her foot extending up to her forefoot. She does have a little bit of redness here also. NEUROLOGIC: Intact. LABORATORY DATA: Her white count is 15.6, H&H 8.6 and 26.8 and platelet count is noted to be 968. Her sodium is 135, potassium is 4.7, BUN and creatinine of 16 and 0.7 and blood sugar was noted to be 83. ASSESSMENT: This is a 65-year-old female patient admitted to rehab with a working diagnosis of critical ischemia to her right lower extremity with possible autoamputation and possible need for [id number]-[id number]-[id number] amputation. The patient has potential to make improvement. We instituted the following multidisciplinary therapies including to, but not limited to physical, occupational, respiratory, speech, nutritional services, prosthetics and orthotics. Given her complex condition and risk for more complications, rehabilitation services cannot be provided at a lower level of care such as a intermediate facility. PLAN: 1. Admit to [facility] rehab for intensive inpatient therapy to include the following disciplines: A. Physical therapy to improve gait, all transfer skills and bed mobility to a modified independent level. B. Occupational therapy to improve activities of daily living to a modified independent level. C. Case management to assist with discharge planning and placement options. D. Nutrition to assist with nutritional needs. E. Rehabilitation nursing to assist in monitoring the patient's underlying medical conditions and to assist with any type of bowel or bladder management. 2. The patient's current medication and medical care will be continued. 3. We will watch her foot closely and above ortho as needed. 4. We will go ahead and discuss this patient during care team staff meeting this week. TRANSINT:[id number] Voice Confirmation ID: [id number] DOCUMENT ID: [id number] HISTORY AND PHYSICAL [id number] MICHELLE WALTER SCOTT MD at 1006 CC: [id number] DICTATION DATE: 06/26/1627 RECORDAK OPERATOR: 06/26/16 0938 ADM IN [facility] [address] [place] [address]
[2016-06-26 13:41] VITALS: BMI 36.1
--- NOTE | 2016-06-26 14:25 | NUR ---
PT UP IN HALLWAY WITH THERAPY WALKING CALL LIGHT IN REACH WILL MONITER
--- NOTE | 2016-06-26 15:58 | NUR ---
WOUND CARE CONSULT: NOTED ISCHEMIC RIGHT FOOT (INCLUDES GREAT AND #2 TOES). THERE IS A LARGE INTACT BLISTER ON THE DORSUM OF FOOT AND ON MEDIAL FOOT. SMALL AMOUNT OF WEEPING NOTED. NO ODOR. GENTLY CLEANSED AND DRIED. COVERED WITH NON-ADHERENT GAUZE AND PROTECTED WITH 4X4S/SECURED WITH KERLIX. PT TOLERATED WELL.
[2016-06-26 19:00] VITALS: BP 114/67
--- NOTE | 2016-06-26 20:25 | NUR ---
PT IN BED WITH HOB UP FOR COMFORT, WATCHING TV, BED IN LOWEST POSITION AND CALL LIGHT WITHIN REACH.
--- NOTE | 2016-06-26 21:35 | NUR ---
PT'S RIGHT UPPER ARM PICC LINE FLUSHES EASILY. SITE SHOWS NO S/S OF INFECTION. DRESSING C/D/I.
--- NOTE | 2016-06-27 01:40 | NUR ---
PT IN BED WITH HOB UP FOR COMFORT, EYES CLOSED, CHEST RISING AND FALLING, BED IN LOWEST POSITION AND CALL LIGHT WITHIN REACH.
--- NOTE | 2016-06-27 02:05 | NUR ---
PT RESTING, EYES CLOSED. BED LOW. CL IN REACH.
--- NOTE | 2016-06-27 04:12 | NUR ---
PT IN BED WITH HOB UP FOR COMFORT, EYES CLOSED, CHEST RISING AND FALLING, BED IN LOWEST POSITION AND CALL LIGHT WITHIN REACH.
--- NOTE | 2016-06-27 05:33 | NUR ---
PRETTY CARE GIVEN.
[2016-06-27 08:20] LABS: BASOPHILS 0.9 % (0.0-2.0); EOSINOPHILS 3.2 % (0-7); HEMATOCRIT 28.4 % (36.0-48.0); HEMOGLOBIN 9.2 g/dL (12-16); IMMATURE GRANULOCYTES 5.5 % (0-5); LYMPHOCYTES 24.6 % (15-50); MCH 31.8 pg (26.0-34.0); MCHC 32.4 g/dL (31.0-37.0); MCV 98.3 fL (80.0-100.0); MEAN PLATELET VOLUME 8.3 fL (7.4-10.4); MONOCYTES 7.3 % (2-11); NEUTROPHILS 58.5 % (40-80); PLATELET COUNT 947 10x3/uL (130-400); RBC 2.89 10x6/uL (4.00-5.40); RDW 14.4 % (11.5-14.5); WBC 14.2 10x3/uL (4.8-10.8)
--- NOTE | 2016-06-27 08:28 | NUR ---
PT RESTING IN BED WITH EYES OPEN CALL LIGHT IN REACH NO PROBLEMS WILL MONITER
[2016-06-27 08:47] LABS: CALC OSMOLALITY 267 mosm/kg (275-300); CALCIUM 9.1 mg/dL (8.5-10.1); CARBON DIOXIDE 27.6 mmol/L (21.0-32.0); CHLORIDE - SERUM 101 mmol/L (98-107); CREATININE - SERUM 0.7 mg/dL (0.6-1.3); GLUCOSE 86 mg/dL (74-106); POTASSIUM - SERUM 4.7 mmol/L (3.5-5.1); SODIUM 134 mmol/L (136-145); UREA NITROGEN 15 mg/dL (7-18); eGFR NON AFRICAN AMERICAN 89 mL/min (90-120)
[2016-06-27 09:00] VITALS: BP 90/54
--- NOTE | 2016-06-27 12:15 | NUR ---
PT RESTING IN BED WITH EYES OPEN EATING LUNCH CALL LIGHT IN REACH TOLERATING WELL WILL MONITER
--- NOTE | 2016-06-27 16:00 | NUR ---
PT PRETTY CATH DCD TIP INTACT PT TOLERATED WELL
--- NOTE | 2016-06-27 17:57 | NUR ---
PT RESTING IN BED WITH EYES OPEN CALL LIGHT IN REACH NO PROBLEMS WILL MONITER
[2016-06-27 19:00] VITALS: BP 115/77
--- NOTE | 2016-06-27 19:51 | NUR ---
PT IS RESTING IN BED WITH EYES OPEN. ALERT AND ORIENTED X 4. DENIES ACUTE DISCOMFORT AT THIS TIME, BUT STATES SHE IS STARTING TO GET FEELING BACK IN HER RIGHT FOOT. AREAS OF BLACKENED TOES NOTED TO BE TURNING RED AND OR PINK IN COLOR IN PLACES. DRESSING TO FOOT IS CDI. RIGHT ARM PICC LINE NOTED. LEFT ARM RESERVED FOR HX OF A MASTECTOMY. SR'S ARE UP X 2 IN BED. CALL LIGHT AND BEDSIDE TABLE ARE WITHIN EASY REACH.
--- NOTE | 2016-06-27 22:05 | NUR ---
PT IS RESTING IN BED TALKING ON THE PHONE. NO COMPLAINT VOICED.
--- NOTE | 2016-06-28 00:06 | NUR ---
RESTING IN BED WITH EYES CLOSED.
--- NOTE | 2016-06-28 01:15 | NUR ---
PT RESTING, EYES CLOSED. BED LOW. CL IN REACH.
--- NOTE | 2016-06-28 03:12 | NUR ---
RESTING IN BED WITH EYES CLOSED. NO DISTRESS NOTED.
[2016-06-28 07:00] VITALS: BP 109/56
--- NOTE | 2016-06-28 08:00 | NUR ---
SHIFT ASSMT COMPLETED.CL IN REACH.
--- NOTE | 2016-06-28 12:00 | NUR ---
RESTING QUIETLY DENIES NEEDS.
--- NOTE | 2016-06-28 16:00 | NUR ---
RESTING QUIETLY.CL IN REACH.
[2016-06-28 23:01] VITALS: BP 106/54
--- NOTE | 2016-06-28 23:06 | NUR ---
PT RECEIVED IN BED WITH EYES OPEN WATCHING TV. PT MADE AWARE OF AVAILABILITY FOR SHOWER AND WAS GIVEN ONE WITH STANDY ASSIST. DRESSING CHANGED TO RIGHT FOOT PER ORDERS WITH SEROSANGUINEOUS DRAINAGE NOTED TO NON-ADHERENT DRESSING. PRN NORCO GIVEN PER REQUEST PRIOR TO SHOWER FOR PAIN. PICC LINE TO RIGHT UPPER ARM AND DRESSING TO RIGHT LOWER EXTREMITY. NO CONCERNS NOTED. PT IN BED WATCHING TV AT THIS TIME.
--- NOTE | 2016-06-29 00:48 | NUR ---
PT IN BED WITH EYES OPEN JUST RETURNING FROM BATHROOM. NO CONCERNS MADE KNOWN. CALL LIGHT IN REACH.
--- NOTE | 2016-06-29 06:28 | NUR ---
PT IN BED WITH EYES CLOSED AND CHEST RISING. EASILY AROUSED TO VERBAL STIMULI. NO CONCERNS NOTED. RECEIVED MORNING MEDICATIONS PER MAR WITHOUT DIFFICULTY. CALL LIGHT IN REACH.
[2016-06-29 07:00] VITALS: BP 97/56
--- NOTE | 2016-06-29 08:00 | NUR ---
SHIFT ASSMT COMPLETED.DENIES NEEDS.BREAKFAST GIVEN.
--- NOTE | 2016-06-29 12:00 | NUR ---
DRSG TO RIGHT FOOT AND ON BOTTOM OF FOOT WEEPING.CHANGED ORDERED.BETEEN 3RD AND 4TH TOES WICKED AND PADDED FOR DRAINAGE.REGINA WELL.
--- NOTE | 2016-06-29 16:00 | NUR ---
AMBULATED WITH BOOT ON IN HALLWAY WITH SISTER.DENIES NEEDS.
[2016-06-29 23:27] VITALS: BP 117/54
--- NOTE | 2016-06-29 23:53 | NUR ---
PT RECEIVED IN BED WATCHING TV. NO COMPLAINTS OF PAIN AT THIS TIME. MEDICATIONS GIVEN PER MAR WITHOUT DIFFICULTY. DRESSING TO RIGHT FOOT CHANGED PER ORDERS. DRAINAGE NOTED TO GAUZE. NO COMPLAINTS AT THIS TIME. IN BED WITH EYES CLOSED AND CHEST RISING. CALL LIGHT IN REACH.
--- NOTE | 2016-06-30 03:20 | NUR ---
PT IN BED WITH EYES CLOSED AND CHEST RISNING. NO SIGN/SYMPTOMS OF DISTRESS NOTED. CALL LIGHT IN REACH.
--- NOTE | 2016-06-30 05:23 | NUR ---
PT IN BED WITH EYES CLOSED AND CHEST RISING. EASILY AROUSED TO VERBAL STIMULI. BLOOD DRAWN VIA RIGHT ARM PICC WITHOUT DIFFICULTY. NO CONCERNS OR NEEDS MADE KNOWN AT THIS TIME. CALL LIGHT IN REACH.
[2016-06-30 06:05] LABS: EOSINOPHILS 3.7 % (0-7); HEMATOCRIT 29.4 % (36.0-48.0); HEMOGLOBIN 9.3 g/dL (12-16); IMMATURE GRANULOCYTES 3.8 % (0-5); LYMPHOCYTES 28.2 % (15-50); MCHC 31.6 g/dL (31.0-37.0); MEAN PLATELET VOLUME 8.2 fL (7.4-10.4); MONOCYTES 6.7 % (2-11); NEUTROPHILS 56.6 % (40-80); PLATELET COUNT 892 10x3/uL (130-400); RDW 14.2 % (11.5-14.5); WBC 11.4 10x3/uL (4.8-10.8)
[2016-06-30 06:29] LABS: CALC OSMOLALITY 271 mosm/kg (275-300); CALCIUM 8.8 mg/dL (8.5-10.1); CARBON DIOXIDE 29.1 mmol/L (21.0-32.0); CHLORIDE - SERUM 100 mmol/L (98-107); CREATININE - SERUM 0.7 mg/dL (0.6-1.3); GLUCOSE 91 mg/dL (74-106); POTASSIUM - SERUM 4.3 mmol/L (3.5-5.1); SODIUM 135 mmol/L (136-145); UREA NITROGEN 17 mg/dL (7-18); eGFR NON AFRICAN AMERICAN 89 mL/min (90-120)
[2016-06-30 08:00] VITALS: BP 112/57
--- NOTE | 2016-06-30 08:00 | NUR ---
PATIENT ALERT/ORIENT X4. SITTING UP IN BED TO EAT BREAKFAST. CALL LIGHT WITHIN REACH. VOICES NO NEEDS AT THIS TIME
--- NOTE | 2016-06-30 08:55 | NUR ---
PRN NORCO GIVEN FOR RIGHT FOOT PAIN PER PATIENT REQUEST
--- NOTE | 2016-06-30 11:00 | NUR ---
PATIENT IN REHAB ROOM. WORKING WITH OCCUPATIONAL THERPAIST. DENIES ANY PAIN/DISC AT THIS TIME
--- NOTE | 2016-06-30 15:47 | NUR ---
PATIENT RESTING IN BED. HAS FAMILY MEMBERS IN ROOM VISITING
--- NOTE | 2016-06-30 18:02 | NUR ---
JONE, WOUND NURSE CALLED ET REMINDED TO SEE PATIENT TOMORROW IN REGARDS TO RIGHT FOOT,
--- NOTE | 2016-06-30 19:20 | NUR ---
PT. IN BED WITH HOB UP FOR COMFORT AND RLE ELEVATED UP ON PILLOW WITH TOES EXPOSED. PT. DENIES ANY NEEDS AT THIS TIME AND HAS HER CALL LIGHT WITHIN REACH, ASSESSMENT COMPLETED.
[2016-06-30 19:37] VITALS: BP 123/68
--- NOTE | 2016-06-30 23:01 | NUR ---
PT. IN BED WITH HOB UP FOR COMFORT AND RLE ELEVATED UP ON PILLOW. PT. ON HER PHONE WATCHING A PROGRAM. PT. DENIES ANY NEEDS AT THIS TIME AND HAS HER CALL LIGHT WITHIN REACH.
--- NOTE | 2016-07-01 06:00 | NUR ---
PT. IN BED WITH HOB UP FOR COMFORT WITH EYES CLOSED AND RESP. DEEP AND EVEN. PT. AWAKENS EASILY FOR MORNING MEDICATIONS. PT. HAS NO VOICED NEEDS AT THIS TIME AND HAS HER CALL LIGHT WITHIN REACH.
--- NOTE | 2016-07-01 08:00 | NUR ---
SHIFT ASSMT COMPLETED.DENIES NEEDS.INDEPENDENT IN ROOM.
[2016-07-01 09:06] VITALS: BP 115/55
--- NOTE | 2016-07-01 11:33 | NUR ---
WOUND CARE REASSESSMENT: ISCHEMIC RIGHT GREAT AND #2 TOES. PURPLE/BLACK NECROTIC/COLD TO THE TOUCH. SLIGHT DUSKY COLORING NOTED ON #3 TOE. THERE CONTINUES TO BE A BLISTER ON THE DORSUM OF RIGHT FOOT AND ON MEDIAL ASPECT OF FOOT AROUND TO PLANTAR. WEEPING IS NOTED AT BASE OF TOES AND THERE IS A FOUL ODOR. MACERATION NOTED IN BETWEEN TOES AND AT BASE OF TOES. THE MID-FOOT OUT TO TOES IS PURPLE. DR. ADLER WAS NOTIFIED BY LUCÍA MUNOZ AND WILL SEE PT TODAY.
--- NOTE | 2016-07-01 12:00 | NUR ---
SITTING UP EATING LUNCH.CL IN REACH.
[2016-07-01 12:01] VITALS: Ht 165.1 cm; Wt 98.4 kg
--- NOTE | 2016-07-01 16:00 | NUR ---
RESTING QUIETLY.CL IN REACH.
[2016-07-01 19:15] VITALS: BP 130/66
--- NOTE | 2016-07-01 20:07 | NUR ---
PT IN BED WITH HOB UP FOR COMFORT, WATCHING TV, PT REQUESTED TO HAVE HER FOOT DRESSING CHANGED AND PT STATED SHE HAS A PAIN LEVEL OF 4/10, BED IN LOWEST POSITION AND CALL LIGHT WITHIN REACH.
--- NOTE | 2016-07-02 00:07 | NUR ---
PT IN BED WITH HOB UP FOR COMFORT, EYES CLOSED, CHEST RISING AND FALLLING, BED IN LOWEST POSITION AND CALL LIGHT WITHIN REACH.
--- NOTE | 2016-07-02 01:25 | NUR ---
RESTING QUIETLY IN BED ON LEFT SIDE, EYES CLOSED.
--- NOTE | 2016-07-02 05:35 | NUR ---
RIGHT UPPER ARM PICC FLUSHES EASILY. SHOWS NO S/S OF INFECTION.
[2016-07-02 06:22] LABS: BASOPHILS 1.2 % (0.0-2.0); EOSINOPHILS 3.6 % (0-7); HEMATOCRIT 29.8 % (36.0-48.0); HEMOGLOBIN 9.3 g/dL (12-16); IMMATURE GRANULOCYTES 1.7 % (0-5); LYMPHOCYTES 34.6 % (15-50); MCH 30.8 pg (26.0-34.0); MCHC 31.2 g/dL (31.0-37.0); MCV 98.7 fL (80.0-100.0); MEAN PLATELET VOLUME 8.1 fL (7.4-10.4); MONOCYTES 7.7 % (2-11); NEUTROPHILS 51.2 % (40-80); PLATELET COUNT 778 10x3/uL (130-400); RBC 3.02 10x6/uL (4.00-5.40); RDW 14.6 % (11.5-14.5); WBC 9.4 10x3/uL (4.8-10.8)
[2016-07-02 07:57] VITALS: BP 111/46
--- NOTE | 2016-07-02 08:00 | NUR ---
shift assmt completed.denies needs.breakfast given.cl in reach.plan to dc home today.
--- NOTE | 2016-07-02 09:19 | NUR ---
PATIENT DISCHRGING HOME TODAY. [facility] WILL PROVIDE NURSING, PT, OT. [facility] WILL DELIVER ROLLING WALKER AND TUB TRANSFER BENCH. DR. ALMAZAN/JENNIFER 07/09/16 @ 2:00. PATIENT CHOICE FORM FOR HOME HEALTH AND [facility] FORM SIGNED AND FILED IN CHART. ALL ORDERS HAVE BEEN FAXED WITH CONFORMATION RECIEVED.
--- NOTE | 2016-07-02 09:27 | NUR ---
IV access Nurse-called for removal of PICC line on patient being discharged home. On arrival, right upper arm PICC intact. Dressing removed, PICC line removed per protocol and pressure to site for 5 minutes, thentegaderm dressing applied. Sandra Jimenes RN
--- NOTE | 2016-07-02 11:45 | NUR ---
REVIEWED MEDS AND HOME CARE.DISCHARGED TO HOME WITH RW WITH .
--- NOTE | 2016-07-02 13:36 | NUR ---
PATIENT DISCHARGE CLINICALS FAXED TO MICHAEL BANDA AT [employer]ING AUTH. # [id number] WITH CONFORMATION RECIEVED
== END 2016-07-02 11:45 | disposition home health service (06) | DRG 300 ==
LOC: D.REHAB 19:00
PROVIDERS: ADMIT Emergency Medicine
DX: I70.261 Atherosclerosis of native arteries of extremities with gangrene, right leg (principal); I82.413 Acute embolism and thrombosis of femoral vein, bilateral; I82.433 Acute embolism and thrombosis of popliteal vein, bilateral; L03.115 Cellulitis of right lower limb; I99.8 Other disorder of circulatory system; D72.829 Elevated white blood cell count, unspecified; G62.9 Polyneuropathy, unspecified; R60.9 Edema, unspecified; R26.9 Unspecified abnormalities of gait and mobility; I95.9 Hypotension, unspecified; F41.8 Other specified anxiety disorders

== ENCOUNTER 2016-12-09 06:00 | Outpatient (CLI) | payer MEDICARE | END 2016-12-09 23:59 | disposition home or self-care (01) | LOC: D.MAMMO 06:00 | DX: Z85.3 Personal history of malignant neoplasm of breast (principal); Z12.31 Encounter for screening mammogram for malignant neoplasm of breast ==

== ENCOUNTER 2016-12-31 12:33 | Inpatient (IN) | payer MEDICARE ==
[~2016-12-31] VITALS: Ht 165.1 cm; Wt 99.8 kg
[2016-12-31 17:09] VITALS: Ht 165.1 cm; Wt 99.8 kg
[2017-01-07 08:26] VITALS: BP 150/84
[2017-01-07] MEDS ORDERED: FOLIC ACID1 MG PO (11:31)
[2017-01-07] MEDS ORDERED: PREDNISONE20 MG PO (11:31)
== END 2017-01-07 13:25 | disposition home or self-care (01) | DRG 803 ==
LOC: D.MS 12:33 → D.OPS 12:33 → D.MS 16:30 → OBSVTIME 16:30 → D.MS 16:53 → D.OPS 16:53 → D.MS 01-02 15:55 → D.OPS 01-02 15:56 → D.MS 01-07 13:25
PROVIDERS: Specialist; ADMIT Family Medicine
PROC: 07DR3ZX Extraction of Iliac Bone Marrow, Percutaneous Approach, Diagnostic (ICD-10-PCS; principal; 2017-01-05 08:00)
PROC: 0QB23ZX Excision of Right Pelvic Bone, Percutaneous Approach, Diagnostic (ICD-10-PCS; principal; 2017-01-05 08:00)
DX: D69.3 Immune thrombocytopenic purpura (principal); D59.1 Other autoimmune hemolytic anemias; R73.9 Hyperglycemia, unspecified; I95.9 Hypotension, unspecified

== ENCOUNTER → 2017-02-11 13:34 | Outpatient (CLI) | payer MEDICARE ==
[~2017-02-11 13:34] MED LIST changes: +FOLIC ACID1 MG PO; +PREDNISONE20 MG PO
== END | disposition home or self-care (01) ==
LOC: D.OPS 13:30
DX: D59.1 Other autoimmune hemolytic anemias (principal)

== ENCOUNTER → 2017-03-23 12:29 | Outpatient (CLI) | payer MEDICARE, OTHER ==
--- NOTE | 2017-03-23 15:08 | NUR ---
1240-RECD TO ROOM 2504 TO REMOVE PICC LINE. VASCULAR ACCESS NURSE NOTIFIED. 1300-BONNIE ARGUETA RN HERE. 1305-PATIENT HAS MIDLINE RATHER THAN PICC LINE. DR WALLS'S OFFICE NOTIFIED. ORDERS RECD TO D/C AND NO NEED FOR TIP CULTURE. 1310-MIDLINE REMOVED PER BONNIE ARGUETA. 1320-PATIENT DISCHARGED AMBULATORY PER REQUEST.
== END | disposition home or self-care (01) ==
LOC: D.OPS 12:29
DX: Z45.2 Encounter for adjustment and management of vascular access device (principal)

== ENCOUNTER 2018-01-05 12:31 | Inpatient (IN) | payer MEDICARE, OTHER ==
[~2018-01-05] VITALS: Ht 165.1 cm; Wt 97.5 kg
[2018-01-05 13:40] VITALS: BP 156/89; BMI 35.9
[2018-01-05 14:29] LABS: BASOPHILS 1.4 % (0-2); EOSINOPHILS 4.1 % (0-7); HEMATOCRIT 38.9 % (36.0-48.0); HEMOGLOBIN 13.3 g/dL (12-16); IMMATURE GRANULOCYTES 0.2 % (0-5); LYMPHOCYTES 42.6 % (15-50); MCH 32.4 pg (26.0-34.0); MCHC 34.2 g/dL (31.0-37.0); MCV 94.6 fL (80.0-100.0); MONOCYTES 8.6 % (2-11); NEUTROPHILS 43.1 % (40-80); RBC 4.11 10x6/uL (4.00-5.40); WBC 8.1 10x3/uL (4.8-10.8)
[2018-01-05 14:36] LABS: PLATELET COUNT 6 10x3/uL (130-400)
[2018-01-05 14:38] LABS: ALBUMIN 3.3 g/dL (3.4-5.0); ALKALINE PHOSPHATASE 100 U/L (46-116); ALT (SGPT) 37 U/L (10-68); CALC OSMOLALITY 276 mosm/kg (275-300); CALCIUM 8.6 mg/dL (8.5-10.1); CHLORIDE - SERUM 105 mmol/L (98-107); CREATININE - SERUM 0.7 mg/dL (0.6-1.3); GLUCOSE 82 mg/dL (74-106); POTASSIUM - SERUM 3.9 mmol/L (3.5-5.1); PROTEIN - SERUM 6.5 g/dL (6.4-8.2); SODIUM 140 mmol/L (136-145); UREA NITROGEN 11 mg/dL (7-18); eGFR NON AFRICAN AMERICAN 89 mL/min (90-120)
[2018-01-05 15:18] LABS: PLATELET ESTIMATE DECREASED
[2018-01-05 16:35] VITALS: BP 143/73
[2018-01-05 16:43] LABS: APPEARANCE CLEAR (CLEAR); BILIRUBIN NEGATIVE (NEGATIVE); COLOR YELLOW (YELLOW); GLUCOSE NEGATIVE (NEGATIVE); KETONE NEGATIVE (NEGATIVE); NITRITE NEGATIVE (NEGATIVE); PROTEIN NEGATIVE (NEGATIVE); UROBILINOGEN NORMAL (NORMAL)
[2018-01-05 16:45] LABS: BACTERIA FEW /hpf (NONE SEEN); EPITHELIAL CELLS OCC /hpf (0-5); RED CELLS - URINE OCC /hpf (0-5); WHITE CELLS - URINE 0-5 /hpf (0-5)
[2018-01-05 22:27] VITALS: BP 107/60
[2018-01-06] VITALS (7 sets, daily range): BP systolic 99–140; BP diastolic 59–73; Ht 165.1 cm; Wt 97.5 kg
[2018-01-06 06:32] LABS: BASOPHILS 1.1 % (0-2); EOSINOPHILS 5.4 % (0-7); HEMATOCRIT 38.1 % (36.0-48.0); IMMATURE GRANULOCYTES 0.5 % (0-5); LYMPHOCYTES 36.7 % (15-50); MCH 32.3 pg (26.0-34.0); MCHC 34.1 g/dL (31.0-37.0); MCV 94.5 fL (80.0-100.0); NEUTROPHILS 45.3 % (40-80); RBC 4.03 10x6/uL (4.00-5.40); RDW 13.1 % (11.5-14.5); WBC 6.5 10x3/uL (4.8-10.8)
[2018-01-06 06:44] LABS: PLATELET COUNT 11 10x3/uL (130-400)
[2018-01-06 07:15] LABS: ALBUMIN 2.8 g/dL (3.4-5.0); ALKALINE PHOSPHATASE 83 U/L (46-116); ALT (SGPT) 35 U/L (10-68); BILIRUBIN - TOTAL 0.34 mg/dL (0.2-1.3); CALC OSMOLALITY 277 mosm/kg (275-300); CALCIUM 8.7 mg/dL (8.5-10.1); CARBON DIOXIDE 28.7 mmol/L (21.0-32.0); CHLORIDE - SERUM 104 mmol/L (98-107); CREATININE - SERUM 0.7 mg/dL (0.6-1.3); GLUCOSE 91 mg/dL (74-106); POTASSIUM - SERUM 3.8 mmol/L (3.5-5.1); PROTEIN - SERUM 7.6 g/dL (6.4-8.2); SODIUM 140 mmol/L (136-145); UREA NITROGEN 10 mg/dL (7-18); eGFR NON AFRICAN AMERICAN 89 mL/min (90-120)
[2018-01-06] MEDS ORDERED: PROTONIX40 MG PO (16:36)
[2018-01-06] MEDS ORDERED: PREDNISONE20 MG PO (16:36)
== END 2018-01-06 20:27 | disposition home or self-care (01) | DRG 813 ==
LOC: D.MS 12:31
PROVIDERS: Internal Medicine Hematology & Oncology
DX: D69.3 Immune thrombocytopenic purpura (principal); N39.0 Urinary tract infection, site not specified; E03.9 Hypothyroidism, unspecified; F41.9 Anxiety disorder, unspecified; G47.00 Insomnia, unspecified; Z85.3 Personal history of malignant neoplasm of breast

== ENCOUNTER → 2018-01-07 10:30 | Outpatient (CLI) | payer MEDICARE, OTHER ==
[~2018-01-07] VITALS: Ht 165.1 cm; Wt 97.7 kg
[~2018-01-07 10:30] MED LIST changes: +PROTONIX40 MG PO
[2018-01-07 12:55] VITALS: BP 135/68; Ht 165.1 cm; Wt 97.7 kg
== END | disposition home or self-care (01) ==
LOC: D.OPS 10:30
DX: D69.3 Immune thrombocytopenic purpura (principal); Z01.812 Encounter for preprocedural laboratory examination

== ENCOUNTER 2018-01-08 09:59 | Outpatient (CLI) | payer MEDICARE, OTHER ==
[~2018-01-08] VITALS: Ht 165.1 cm; Wt 97.7 kg
[2018-01-08 10:49] LABS: BASOPHILS 0.3 % (0-2); EOSINOPHILS 0.2 % (0-7); HEMATOCRIT 37.6 % (36.0-48.0); IMMATURE GRANULOCYTES 0.4 % (0-5); LYMPHOCYTES 17.5 % (15-50); MCH 32.7 pg (26.0-34.0); MCHC 34.6 g/dL (31.0-37.0); MCV 94.5 fL (80.0-100.0); MEAN PLATELET VOLUME 11.8 fL (7.4-10.4); MONOCYTES 6.3 % (2-11); NEUTROPHILS 75.3 % (40-80); RBC 3.98 10x6/uL (4.00-5.40); WBC 11.1 10x3/uL (4.8-10.8)
[2018-01-08 10:53] LABS: PLATELET COUNT 41 10x3/uL (130-400)
[2018-01-08 11:21] VITALS: BP 154/90; Ht 165.1 cm; Wt 97.7 kg
== END 2018-01-08 15:52 | disposition home or self-care (01) ==
LOC: D.OPS 09:59
PROVIDERS: Internal Medicine Hematology & Oncology
DX: D69.3 Immune thrombocytopenic purpura (principal); Z01.812 Encounter for preprocedural laboratory examination

== ENCOUNTER 2018-01-09 09:27 | Outpatient (CLI) | payer MEDICARE, OTHER ==
[~2018-01-09] VITALS: Ht 165.1 cm; Wt 97.7 kg
[2018-01-09 10:15] VITALS: BP 145/83; Ht 165.1 cm; Wt 97.7 kg
[2018-01-09 11:50] LABS: BASOPHILS 0.5 % (0-2); EOSINOPHILS 0.1 % (0-7); HEMATOCRIT 36.4 % (36.0-48.0); HEMOGLOBIN 12.6 g/dL (12-16); IMMATURE GRANULOCYTES 0.3 % (0-5); LYMPHOCYTES 7.4 % (15-50); MCH 32.6 pg (26.0-34.0); MCHC 34.6 g/dL (31.0-37.0); MCV 94.3 fL (80.0-100.0); MONOCYTES 3.7 % (2-11); PLATELET COUNT 53 10x3/uL (130-400); RBC 3.86 10x6/uL (4.00-5.40); RDW 13.5 % (11.5-14.5); WBC 12.8 10x3/uL (4.8-10.8)
== END 2018-01-09 15:55 | disposition home or self-care (01) ==
LOC: D.OPS 09:27 → D.MS 09:58 → D.OPS 15:55
PROVIDERS: Internal Medicine Hematology & Oncology
DX: D69.3 Immune thrombocytopenic purpura (principal); Z01.812 Encounter for preprocedural laboratory examination

== ENCOUNTER 2018-01-11 10:18 | Outpatient (CLI) | payer MEDICARE, OTHER ==
[~2018-01-11] VITALS: Ht 165.1 cm; Wt 97.7 kg
[2018-01-11 11:42] VITALS: BP 127/81; Ht 165.1 cm; Wt 97.7 kg
== END 2018-01-11 16:02 | disposition home or self-care (01) ==
LOC: D.OPS 10:18
DX: D69.3 Immune thrombocytopenic purpura (principal); Z01.812 Encounter for preprocedural laboratory examination

== ENCOUNTER 2018-01-13 13:56 | Outpatient (CLI) | payer MEDICARE, OTHER ==
[~2018-01-13] VITALS: Ht 165.1 cm; Wt 97.7 kg
[2018-01-13 15:32] VITALS: BP 130/73; Ht 165.1 cm; Wt 97.7 kg
== END 2018-01-13 19:45 | disposition home or self-care (01) ==
LOC: D.OPS 13:56
DX: D69.3 Immune thrombocytopenic purpura (principal); D59.1 Other autoimmune hemolytic anemias; Z01.812 Encounter for preprocedural laboratory examination

== ENCOUNTER 2018-01-15 11:31 | Outpatient (CLI) | payer MEDICARE, OTHER ==
[~2018-01-15] VITALS: Ht 165.1 cm; Wt 97.7 kg
[2018-01-15 13:12] VITALS: BP 109/72; Ht 165.1 cm; Wt 97.7 kg
== END 2018-01-15 14:53 | disposition home or self-care (01) ==
LOC: D.OPS 11:31
DX: D69.6 Thrombocytopenia, unspecified (principal)

== ENCOUNTER 2018-01-18 10:58 | Outpatient (CLI) | payer MEDICARE, OTHER ==
[~2018-01-18] VITALS: Ht 165.1 cm; Wt 97.3 kg
[2018-01-18 12:30] VITALS: BP 132/86; Ht 165.1 cm; Wt 97.3 kg
== END 2018-01-18 15:05 | disposition home or self-care (01) ==
LOC: D.OPS 10:58
DX: D59.1 Other autoimmune hemolytic anemias (principal); D69.3 Immune thrombocytopenic purpura; Z01.812 Encounter for preprocedural laboratory examination

== ENCOUNTER 2018-01-20 10:43 | Outpatient (CLI) | payer MEDICARE, OTHER ==
[~2018-01-20] VITALS: Ht 165.1 cm; Wt 97.3 kg
[2018-01-20 11:07] VITALS: BP 141/85; Ht 165.1 cm; Wt 97.3 kg
== END 2018-01-20 13:50 | disposition home or self-care (01) ==
LOC: D.OPS 10:43
DX: D69.3 Immune thrombocytopenic purpura (principal)

== ENCOUNTER 2018-01-21 14:02 | Outpatient (CLI) | payer MEDICARE, OTHER ==
[~2018-01-21] VITALS: Ht 165.1 cm; Wt 97.7 kg
[2018-01-21 14:32] VITALS: BP 143/80; Ht 165.1 cm; Wt 97.7 kg
== END 2018-01-21 19:00 | disposition home or self-care (01) ==
LOC: D.OPS 14:02
DX: D69.3 Immune thrombocytopenic purpura (principal); Z01.812 Encounter for preprocedural laboratory examination

== ENCOUNTER 2018-01-25 11:17 | Outpatient (CLI) | payer MEDICARE, OTHER ==
[~2018-01-25] VITALS: Ht 165.1 cm; Wt 97.3 kg
[2018-01-25 11:38] VITALS: BP 137/86; Ht 165.1 cm; Wt 97.3 kg
== END 2018-01-25 14:51 | disposition home or self-care (01) ==
LOC: D.OPS 11:17
DX: D69.3 Immune thrombocytopenic purpura (principal); Z01.812 Encounter for preprocedural laboratory examination

== ENCOUNTER 2018-01-26 11:06 | Outpatient (CLI) | payer MEDICARE, OTHER ==
[~2018-01-26] VITALS: Ht 165.1 cm; Wt 97.3 kg
[2018-01-26 13:29] VITALS: BP 146/77; Ht 165.1 cm; Wt 97.3 kg
== END 2018-01-26 16:45 | disposition home or self-care (01) ==
LOC: D.OPS 11:06
DX: D64.9 Anemia, unspecified (principal); Z01.812 Encounter for preprocedural laboratory examination

== ENCOUNTER 2018-01-26 21:09 | Inpatient (IN) | payer MEDICARE, OTHER ==
[~2018-01-26] VITALS: Ht 165.1 cm; Wt 97.3 kg
--- NOTE | ~2018-01-26 | MORECARE ---
CASE MANAGEMENT DISCHARGE SUMMARY PATIENT: MICHELLE WALTER UNIT: [id number] ADM DATE: 01/27/18 AGE: 67 : 51 SEX: F ROOM/BED: D.2201 AUTHOR: ANDERSON LUGO PHYSICIAN: REFERRING PHYSICIAN: PAYAM ZEE MD DATE OF SERVICE: 02/09/18 Discharge Plan Patient Name: MICHELLE WALTER Facility: [facility]:[place] : 1950 Planned Disposition: Home Anticipated Discharge Date: Discharge Date: Expected LOS: Initial Reviewer: [email or web address] Initial Review Date: 01/27/2018 Generated: 02/09/18 10:31 am Comments DCP- Discharge Planning Updated by [email or web address]: Renata Harmon on 01/27/18 10:[address] Patient Name: MICHELLE WALTER Admission Status: ER Accout number: [id number] Admission Date: 01-27-2018 : 1950 Admission Diagnosis: Attending: PAYAM ZEE Current LOS: 1 Anticipated DC Date: Planned Disposition: Home Primary Insurance: MEDICARE A & B Discharge Planning Comments: CM met with patient to assess discharge planning needs. Patient stated that she is independent with her care at home. Her will be the one to drive her home. She states that her home is safe to return. She does not use any DME or HH and does not think that she will need anything when she goes home. CM will continue to follow and assist with DC planning. Dumpster Operator: Renata Harmon DCPIA - Discharge Planning Initial Assessment Updated by [email or web address]: Renata Harmon on 01/27/18 11:08 am * Is the patient Alert and Oriented? Yes * [facility] Pat[facility] * Preadmission Environment Home with Family * ADLs Independent * Equipment None * List name and contact numbers for known caregivers / representatives who currently or will assist patient after discharge: Zane (son) [phone] * Verbal permission to speak to the caregivers and representatives has been obtained from the patient. N/A * Community resources currently utilized None * Additional services required to return to the preadmission environment? No * Can the patient safely return to the preadmission environment? Yes * Has this patient been hospitalized within the prior 30 days at any hospital? Yes Last DP export: 01/27/18 10:24 Patient Name: MICHELLE WALTER Page [id number] at 0931 All edits/amendments must be made on the electronic document DICTATION DATE: 02/09/18929 GENERAL INTERNIST: [email or web address] 02/09/18929 RPT#: [id number] DC DATE: STATUS: ADM IN [facility] [address] [place] [address] END OF REPORT
--- NOTE | ~2018-01-26 | MORECARE ---
CASE MANAGEMENT DISCHARGE SUMMARY PATIENT: MICHELLE WALTER UNIT: [id number] ADM DATE: 01/27/18 AGE: 67 : 51 SEX: F ROOM/BED: D.2205 AUTHOR: ANDERSON LUGO PHYSICIAN: REFERRING PHYSICIAN: PAYAM ZEE MD DATE OF SERVICE: 02/15/18 Discharge Plan Patient Name: MICHELLE WALTER Facility: [facility]:[place] : 1950 Planned Disposition: Home Anticipated Discharge Date: Discharge Date: Expected LOS: Initial Reviewer: [email or web address] Initial Review Date: 01/27/2018 Generated: 02/15/18 11:51 am Comments DCP- Discharge Planning Updated by [email or web address]: Renata Harmon on 02/15/18 9:[address] Patient Name: MICHELLE WALTER Encounter No: [id number] : 1950 Primary Insurance: MEDICARE A & B Anticipated DC Date: Planned Disposition: Home External Planned Provider: : DCP follow-up note: Patient and family in agreement with discharge plan. Patient refuses home health her will be driving her home today. She denies any needs at this time. IMM served and explained. No changes to plan. Case management will follow and assist as needed. Renata Harmon DCP- Discharge Planning Updated by [email or web address]: Renata Harmon on 01/27/18 10:[address] Patient Name: MICHELLE WALTER Admission Status: ER Accout number: [id number] Admission Date: 01-27-2018 : 1950 Admission Diagnosis: Attending: PAYAM ZEE Current LOS: 1 Anticipated DC Date: Planned Disposition: Home Primary Insurance: MEDICARE A & B Discharge Planning Comments: CM met with patient to assess discharge planning needs. Patient stated that she is independent with her care at home. Her will be the one to drive her home. She states that her home is safe to return. She does not use any DME or HH and does not think that she will need anything when she goes home. CM will continue to follow and assist with DC planning. Library Technology Instructor: Renata Harmon DCPIA - Discharge Planning Initial Assessment Updated by [email or web address]: Renata Harmon on 01/27/18 11:08 am * Is the patient Alert and Oriented? Yes * PCP Patel * Pharmacy [facility] [place] * Preadmission Environment Home with Family * ADLs Independent * Equipment None * List name and contact numbers for known caregivers / representatives who currently or will assist patient after discharge: Zane (son) [phone] * Verbal permission to speak to the caregivers and representatives has been obtained from the patient. N/A * Community resources currently utilized None * Additional services required to return to the preadmission environment? No * Can the patient safely return to the preadmission environment? Yes * Has this patient been hospitalized within the prior 30 days at any hospital? Yes Coverage Notice Reviewer: [email or web address] - Renata Harmon Notice Issued Date-Time: 02/15/2018 10:40 Notice Type: IM Discharge Notice Notice Delivered To: Patient Relationship to Patient: Health Insurance Agent Name: Delivery Method: HAND - Hand Delivered Ira Days: Prior Verbal Notification: Recipient Understood Notice: Yes Recipient Signature: Yes Med Rec Note Co-signed by Attending: Coverage Notice Comment: Last DP export: 02/09/18 8:31 Patient Name: MICHELLE WALTER Page [phone] at 1051 All edits/amendments must be made on the electronic document DICTATION DATE: 02/15/18 1051 TRACING LATHE SET UP OPERATOR: [email or web address] 02/15/18 1051 RPT#: [id number] DC DATE: STATUS: ADM IN [facility] [address] [place] [address] END OF REPORT
--- NOTE | ~2018-01-26 | MORECARE ---
CASE MANAGEMENT DISCHARGE SUMMARY PATIENT: MICHELLE WALTER UNIT: [id number] ADM DATE: 01/27/18 AGE: 67 : 51 SEX: F ROOM/BED: D.2203 AUTHOR: ANDERSON LUGO PHYSICIAN: REFERRING PHYSICIAN: PAYAM ZEE MD DATE OF SERVICE: 02/15/18 Discharge Plan Patient Name: MICHELLE WALTER Facility: [facility]:[place] : 1950 Planned Disposition: Home Anticipated Discharge Date: Discharge Date: 02/15/2018 Expected LOS: 0 Initial Reviewer: [email or web address] Initial Review Date: 01/27/2018 Generated: 02/15/18 1:33 pm Comments DCP- Discharge Planning Updated by [id number]: Renata Harmon on 02/15/18 9:[address] Patient Name: MICHELLE WALTER Encounter No: [id number] : 1950 Primary Insurance: MEDICARE A & B Anticipated DC Date: Planned Disposition: Home External Planned Provider: : DCP follow-up note: Patient and family in agreement with discharge plan. Patient refuses home health her will be driving her home today. She denies any needs at this time. IMM served and explained. No changes to plan. Case management will follow and assist as needed. Renata Harmon DCP- Discharge Planning Updated by [id number]: Renata Harmon on 01/27/18 10:[address] Patient Name: MICHELLE WALTER Admission Status: ER Accout number: [id number] Admission Date: 01-27-2018 : 1950 Admission Diagnosis: Attending: PAYAM ZEE Current LOS: 1 Anticipated DC Date: Planned Disposition: Home Primary Insurance: MEDICARE A & B Discharge Planning Comments: CM met with patient to assess discharge planning needs. Patient stated that she is independent with her care at home. Her will be the one to drive her home. She states that her home is safe to return. She does not use any DME or HH and does not think that she will need anything when she goes home. CM will continue to follow and assist with DC planning. Tailor Garment Fitter: Renata Harmon DCPIA - Discharge Planning Initial Assessment Updated by [email or web address]: Renata Harmon on 01/27/18 11:08 am * Is the patient Alert and Oriented? Yes * PCP Patel * Pharmacy [facility] [address] * Preadmission Environment Home with Family * ADLs Independent * Equipment None * List name and contact numbers for known caregivers / representatives who currently or will assist patient after discharge: Zane (son) [phone] * Verbal permission to speak to the caregivers and representatives has been obtained from the patient. N/A * Community resources currently utilized None * Additional services required to return to the preadmission environment? No * Can the patient safely return to the preadmission environment? Yes * Has this patient been hospitalized within the prior 30 days at any hospital? Yes Coverage Notice Reviewer: [id number] - Renata Harmon Notice Issued Date-Time: 02/15/2018 10:40 Notice Type: IM Discharge Notice Notice Delivered To: Patient Relationship to Patient: Commutator Inspector Name: Delivery Method: HAND - Hand Delivered Ira Days: Prior Verbal Notification: Recipient Understood Notice: Yes Recipient Signature: Yes Med Rec Note Co-signed by Attending: Coverage Notice Comment: Last DP export: 02/15/18 9:51 Patient Name: MICHELLE WALTER Page [id number] at 1233 All edits/amendments must be made on the electronic document DICTATION DATE: 02/15/18 1232 DRAFTER (CAD) ELECTRONIC: EDWIGE 02/15/18 1232 RPT#: [id number] DC DATE:02/15/18 STATUS: DIS IN [facility] [address] [place] [address] END OF REPORT
[2018-01-27] VITALS (7 sets, daily range): BP systolic 101–135; BP diastolic 54–85; Ht 165.1 cm; Wt 97.3 kg
[2018-01-27 00:26] LABS: APTT 21.5 SECONDS (22.8-39.4); INR 0.89 (0.85-1.17); PROTIME 11.7 SECONDS (11.6-15.0)
[2018-01-27 00:30] LABS: BASOPHILS 0.2 % (0-2); EOSINOPHILS 0.3 % (0-7); HEMATOCRIT 38.9 % (36.0-48.0); HEMOGLOBIN 13.3 g/dL (12-16); IMMATURE GRANULOCYTES 2.1 % (0-5); LYMPHOCYTES 15.5 % (15-50); MCH 32.9 pg (26.0-34.0); MCHC 34.2 g/dL (31.0-37.0); MCV 96.3 fL (80.0-100.0); MONOCYTES 5.5 % (2-11); NEUTROPHILS 76.4 % (40-80); RBC 4.04 10x6/uL (4.00-5.40); RDW 15.1 % (11.5-14.5); WBC 18.8 10x3/uL (4.8-10.8)
[2018-01-27 00:33] LABS: PLATELET COUNT 14 10x3/uL (130-400)
[2018-01-27 00:36] LABS: ALBUMIN 3.3 g/dL (3.4-5.0); ALKALINE PHOSPHATASE 90 U/L (46-116); ALT (SGPT) 50 U/L (10-68); BILIRUBIN - TOTAL 0.31 mg/dL (0.2-1.3); CALC OSMOLALITY 281 mosm/kg (275-300); CALCIUM 8.6 mg/dL (8.5-10.1); CARBON DIOXIDE 23.6 mmol/L (21.0-32.0); CHLORIDE - SERUM 106 mmol/L (98-107); CREATININE - SERUM 0.7 mg/dL (0.6-1.3); GLUCOSE 109 mg/dL (74-106); POTASSIUM - SERUM 3.8 mmol/L (3.5-5.1); PROTEIN - SERUM 7.6 g/dL (6.4-8.2); SODIUM 140 mmol/L (136-145); UREA NITROGEN 19 mg/dL (7-18); eGFR NON AFRICAN AMERICAN 89 mL/min (90-120)
[2018-01-27 06:21] LABS: ALBUMIN 2.9 g/dL (3.4-5.0); ALKALINE PHOSPHATASE 67 U/L (46-116); ALT (SGPT) 43 U/L (10-68); CALC OSMOLALITY 281 mosm/kg (275-300); CALCIUM 8.4 mg/dL (8.5-10.1); CHLORIDE - SERUM 106 mmol/L (98-107); CREATININE - SERUM 0.7 mg/dL (0.6-1.3); GLUCOSE 111 mg/dL (74-106); POTASSIUM - SERUM 3.6 mmol/L (3.5-5.1); PROTEIN - SERUM 6.6 g/dL (6.4-8.2); SODIUM 139 mmol/L (136-145); UREA NITROGEN 22 mg/dL (7-18); eGFR NON AFRICAN AMERICAN 89 mL/min (90-120)
[2018-01-27 06:31] LABS: BASOPHILS 0.3 % (0-2); EOSINOPHILS 1.1 % (0-7); HEMATOCRIT 34.3 % (36.0-48.0); HEMOGLOBIN 11.4 g/dL (12-16); LYMPHOCYTES 22.7 % (15-50); MCHC 33.2 g/dL (31.0-37.0); MCV 96.3 fL (80.0-100.0); MONOCYTES 3.9 % (2-11); RBC 3.56 10x6/uL (4.00-5.40); RDW 15.1 % (11.5-14.5)
[2018-01-27 06:32] LABS: PLATELET COUNT 3 10x3/uL (130-400)
[2018-01-27 13:42] LABS: BASOPHILS 0.6 % (0-2); EOSINOPHILS 1.8 % (0-7); HEMATOCRIT 32.7 % (36.0-48.0); HEMOGLOBIN 10.8 g/dL (12-16); IMMATURE GRANULOCYTES 3.1 % (0-5); LYMPHOCYTES 23.2 % (15-50); MCV 96.7 fL (80.0-100.0); MONOCYTES 4.5 % (2-11); NEUTROPHILS 66.8 % (40-80); RBC 3.38 10x6/uL (4.00-5.40); RDW 15.2 % (11.5-14.5); WBC 17.2 10x3/uL (4.8-10.8)
[2018-01-27 14:07] LABS: PLATELET COUNT 14 10x3/uL (130-400)
[2018-01-28] VITALS (13 sets, daily range): BP systolic 99–1106; BP diastolic 49–83
[2018-01-28 06:20] LABS: BASOPHILS 0.2 % (0-2); EOSINOPHILS 0.3 % (0-7); HEMATOCRIT 30.8 % (36.0-48.0); HEMOGLOBIN 10.3 g/dL (12-16); IMMATURE GRANULOCYTES 1.5 % (0-5); LYMPHOCYTES 14.4 % (15-50); MCH 32.5 pg (26.0-34.0); MCHC 33.4 g/dL (31.0-37.0); MCV 97.2 fL (80.0-100.0); NEUTROPHILS 79.6 % (40-80); RBC 3.17 10x6/uL (4.00-5.40); RDW 15.4 % (11.5-14.5); WBC 15.9 10x3/uL (4.8-10.8)
[2018-01-28 06:23] LABS: PLATELET COUNT 4 10x3/uL (130-400)
[2018-01-28 06:57] LABS: ALBUMIN 2.8 g/dL (3.4-5.0); ALKALINE PHOSPHATASE 66 U/L (46-116); BILIRUBIN - TOTAL 0.29 mg/dL (0.2-1.3); CALC OSMOLALITY 281 mosm/kg (275-300); CALCIUM 8.4 mg/dL (8.5-10.1); CARBON DIOXIDE 24.3 mmol/L (21.0-32.0); CHLORIDE - SERUM 106 mmol/L (98-107); GLUCOSE 105 mg/dL (74-106); PROTEIN - SERUM 6.2 g/dL (6.4-8.2); SODIUM 140 mmol/L (136-145); UREA NITROGEN 22 mg/dL (7-18)
[2018-01-28 06:58] LABS: ALT (SGPT) 100 U/L (10-68); CREATININE - SERUM 0.5 mg/dL (0.6-1.3); POTASSIUM - SERUM 4.2 mmol/L (3.5-5.1); eGFR NON AFRICAN AMERICAN > 90 mL/min (90-120)
[2018-01-29] VITALS: BP 116/43
[2018-01-29 04:00] VITALS: BP 106/62
[2018-01-29 06:05] LABS: BASOPHILS 0.7 % (0-2); EOSINOPHILS 4.3 % (0-7); HEMATOCRIT 32.3 % (36.0-48.0); HEMOGLOBIN 10.7 g/dL (12-16); IMMATURE GRANULOCYTES 3.4 % (0-5); LYMPHOCYTES 28.6 % (15-50); MCH 32.5 pg (26.0-34.0); MCHC 33.1 g/dL (31.0-37.0); MCV 98.2 fL (80.0-100.0); RBC 3.29 10x6/uL (4.00-5.40); RDW 15.9 % (11.5-14.5); WBC 13.3 10x3/uL (4.8-10.8)
[2018-01-29 06:21] LABS: ALBUMIN 2.7 g/dL (3.4-5.0); ALKALINE PHOSPHATASE 69 U/L (46-116); BILIRUBIN - TOTAL 0.31 mg/dL (0.2-1.3); CALCIUM 8.2 mg/dL (8.5-10.1); CARBON DIOXIDE 28.3 mmol/L (21.0-32.0); CHLORIDE - SERUM 108 mmol/L (98-107); CREATININE - SERUM 0.6 mg/dL (0.6-1.3); GLUCOSE 86 mg/dL (74-106); POTASSIUM - SERUM 4.1 mmol/L (3.5-5.1); PROTEIN - SERUM 6.2 g/dL (6.4-8.2); SODIUM 142 mmol/L (136-145); eGFR NON AFRICAN AMERICAN > 90 mL/min (90-120)
[2018-01-29 06:24] LABS: ALT (SGPT) 69 U/L (10-68); CALC OSMOLALITY 281 mosm/kg (275-300); UREA NITROGEN 13 mg/dL (7-18)
[2018-01-29 06:25] LABS: PLATELET COUNT 4 10x3/uL (130-400)
[2018-01-29 09:12] VITALS: BP 129/76
[2018-01-29 13:46] VITALS: BP 106/57
[2018-01-29 16:49] VITALS: BP 119/62
[2018-01-29 20:00] VITALS: BP 112/55
[2018-01-30 04:00] VITALS: BP 113/63
[2018-01-30 05:34] LABS: BASOPHILS 0.2 % (0-2); HEMATOCRIT 31.7 % (36.0-48.0); HEMOGLOBIN 10.5 g/dL (12-16); IMMATURE GRANULOCYTES 1.9 % (0-5); LYMPHOCYTES 17.3 % (15-50); MCH 32.2 pg (26.0-34.0); MCHC 33.1 g/dL (31.0-37.0); MCV 97.2 fL (80.0-100.0); MONOCYTES 4.7 % (2-11); NEUTROPHILS 74.9 % (40-80); RBC 3.26 10x6/uL (4.00-5.40); RDW 15.9 % (11.5-14.5)
[2018-01-30 05:38] LABS: WBC 18.9 10x3/uL (4.8-10.8)
[2018-01-30 05:39] LABS: PLATELET COUNT 5 10x3/uL (130-400)
[2018-01-30 06:00] LABS: ALBUMIN 2.8 g/dL (3.4-5.0); ALKALINE PHOSPHATASE 65 U/L (46-116); ALT (SGPT) 57 U/L (10-68); BILIRUBIN - TOTAL 0.25 mg/dL (0.2-1.3); CALC OSMOLALITY 280 mosm/kg (275-300); CALCIUM 8.8 mg/dL (8.5-10.1); CHLORIDE - SERUM 106 mmol/L (98-107); CREATININE - SERUM 0.6 mg/dL (0.6-1.3); GLUCOSE 104 mg/dL (74-106); POTASSIUM - SERUM 4.3 mmol/L (3.5-5.1); PROTEIN - SERUM 6.4 g/dL (6.4-8.2); SODIUM 141 mmol/L (136-145); UREA NITROGEN 12 mg/dL (7-18); eGFR NON AFRICAN AMERICAN > 90 mL/min (90-120)
[2018-01-30 12:33] VITALS: BP 115/64
[2018-01-30 17:34] VITALS: BP 128/68
[2018-01-30 19:50] VITALS: BP 122/64
[2018-01-31 04:00] VITALS: BP 128/70
[2018-01-31 05:30] LABS: BASOPHILS 0.3 % (0-2); EOSINOPHILS 1.4 % (0-7); HEMATOCRIT 28.3 % (36.0-48.0); HEMOGLOBIN 9.3 g/dL (12-16); IMMATURE GRANULOCYTES 2.1 % (0-5); MCH 32.4 pg (26.0-34.0); MCHC 32.9 g/dL (31.0-37.0); MCV 98.6 fL (80.0-100.0); MONOCYTES 4.2 % (2-11); RBC 2.87 10x6/uL (4.00-5.40); WBC 15.5 10x3/uL (4.8-10.8)
[2018-01-31 05:35] LABS: PLATELET COUNT 3 10x3/uL (130-400)
[2018-01-31 06:12] LABS: ALBUMIN 2.3 g/dL (3.4-5.0); ALKALINE PHOSPHATASE 48 U/L (46-116); BILIRUBIN - TOTAL 0.18 mg/dL (0.2-1.3); CALC OSMOLALITY 281 mosm/kg (275-300); CALCIUM 7.4 mg/dL (8.5-10.1); CHLORIDE - SERUM 110 mmol/L (98-107); CREATININE - SERUM 0.5 mg/dL (0.6-1.3); GLUCOSE 104 mg/dL (74-106); PROTEIN - SERUM 5.4 g/dL (6.4-8.2); SODIUM 142 mmol/L (136-145); UREA NITROGEN 10 mg/dL (7-18); eGFR NON AFRICAN AMERICAN > 90 mL/min (90-120)
[2018-01-31 06:13] LABS: ALT (SGPT) 40 U/L (10-68); CARBON DIOXIDE 20.4 mmol/L (21.0-32.0); POTASSIUM - SERUM 3.5 mmol/L (3.5-5.1)
[2018-01-31 08:27] VITALS: BP 141/73
[2018-01-31 12:18] VITALS: BP 102/61
[2018-01-31 16:49] VITALS: BP 137/80
[2018-01-31 20:00] VITALS: BP 119/68
[2018-02-01 04:00] VITALS: BP 125/72
[2018-02-01 06:37] LABS: BASOPHILS 0.4 % (0-2); EOSINOPHILS 0.8 % (0-7); HEMATOCRIT 33.3 % (36.0-48.0); HEMOGLOBIN 11.1 g/dL (12-16); IMMATURE GRANULOCYTES 3.7 % (0-5); LYMPHOCYTES 20.4 % (15-50); MCH 33.4 pg (26.0-34.0); MCHC 33.3 g/dL (31.0-37.0); MCV 100.3 fL (80.0-100.0); NEUTROPHILS 69.7 % (40-80); RBC 3.32 10x6/uL (4.00-5.40); RDW 16.4 % (11.5-14.5); WBC 19.2 10x3/uL (4.8-10.8)
[2018-02-01 06:48] LABS: CALCIUM 8.8 mg/dL (8.5-10.1); CHLORIDE - SERUM 106 mmol/L (98-107); CREATININE - SERUM 0.6 mg/dL (0.6-1.3); GLUCOSE 92 mg/dL (74-106); SODIUM 142 mmol/L (136-145); eGFR NON AFRICAN AMERICAN > 90 mL/min (90-120)
[2018-02-01 06:49] LABS: CALC OSMOLALITY 282 mosm/kg (275-300); CARBON DIOXIDE 29.7 mmol/L (21.0-32.0); POTASSIUM - SERUM 4.2 mmol/L (3.5-5.1); UREA NITROGEN 13 mg/dL (7-18)
[2018-02-01 06:53] LABS: PLATELET COUNT 8 10x3/uL (130-400)
[2018-02-01 07:47] VITALS: BP 137/78
[2018-02-01 11:41] VITALS: BP 117/65
[2018-02-01 16:01] VITALS: BP 112/70
[2018-02-01 20:18] VITALS: BP 115/69
[2018-02-02 04:11] VITALS: BP 139/73
[2018-02-02 06:08] LABS: BASOPHILS 0.4 % (0-2); EOSINOPHILS 1.1 % (0-7); HEMATOCRIT 34.5 % (36.0-48.0); HEMOGLOBIN 11.1 g/dL (12-16); LYMPHOCYTES 20.8 % (15-50); MCH 32.3 pg (26.0-34.0); MCHC 32.2 g/dL (31.0-37.0); MCV 100.3 fL (80.0-100.0); MONOCYTES 5.6 % (2-11); NEUTROPHILS 68.1 % (40-80); PLATELET COUNT 4 10x3/uL (130-400); RBC 3.44 10x6/uL (4.00-5.40); RDW 16.2 % (11.5-14.5); WBC 20.3 10x3/uL (4.8-10.8)
[2018-02-02 06:18] LABS: CALC OSMOLALITY 278 mosm/kg (275-300); CALCIUM 8.5 mg/dL (8.5-10.1); CARBON DIOXIDE 31.6 mmol/L (21.0-32.0); CHLORIDE - SERUM 104 mmol/L (98-107); CREATININE - SERUM 0.7 mg/dL (0.6-1.3); GLUCOSE 96 mg/dL (74-106); POTASSIUM - SERUM 4.3 mmol/L (3.5-5.1); SODIUM 140 mmol/L (136-145); UREA NITROGEN 12 mg/dL (7-18); eGFR NON AFRICAN AMERICAN 89 mL/min (90-120)
[2018-02-02 08:45] VITALS: BP 131/90
[2018-02-02 12:45] VITALS: BP 113/64
[2018-02-02 16:53] VITALS: BP 114/67
[2018-02-02 20:16] VITALS: BP 123/70
[2018-02-03 03:31] VITALS: BP 12/81
[2018-02-03 05:21] LABS: HEMATOCRIT 33.2 % (36.0-48.0); HEMOGLOBIN 10.8 g/dL (12-16); MCH 32.4 pg (26.0-34.0); MCHC 32.5 g/dL (31.0-37.0); MCV 99.7 fL (80.0-100.0); PLATELET COUNT 5 10x3/uL (130-400); RBC 3.33 10x6/uL (4.00-5.40); RDW 16.2 % (11.5-14.5); WBC 20.1 10x3/uL (4.8-10.8)
[2018-02-03 05:22] LABS: BASOPHILS 0.4 % (0-2); EOSINOPHILS 0.7 % (0-7); IMMATURE GRANULOCYTES 4.9 % (0-5); LYMPHOCYTES 17.3 % (15-50); MONOCYTES 5.2 % (2-11); NEUTROPHILS 71.5 % (40-80)
[2018-02-03 05:28] LABS: CALC OSMOLALITY 280 mosm/kg (275-300); CALCIUM 8.6 mg/dL (8.5-10.1); CARBON DIOXIDE 27.6 mmol/L (21.0-32.0); CHLORIDE - SERUM 104 mmol/L (98-107); CREATININE - SERUM 0.7 mg/dL (0.6-1.3); GLUCOSE 111 mg/dL (74-106); POTASSIUM - SERUM 4.1 mmol/L (3.5-5.1); SODIUM 140 mmol/L (136-145); UREA NITROGEN 15 mg/dL (7-18); eGFR NON AFRICAN AMERICAN 89 mL/min (90-120)
[2018-02-03 08:42] VITALS: BP 132/72
[2018-02-03 13:03] VITALS: BP 122/75
[2018-02-03 15:45] VITALS: BP 116/65
[2018-02-03 21:47] VITALS: BP 107/61
[2018-02-04] VITALS (9 sets, daily range): BP systolic 104–141; BP diastolic 67–76
[2018-02-04 06:24] LABS: BASOPHILS 0.3 % (0-2); EOSINOPHILS 0.8 % (0-7); HEMATOCRIT 34.5 % (36.0-48.0); IMMATURE GRANULOCYTES 6.4 % (0-5); LYMPHOCYTES 19.5 % (15-50); MCH 32.4 pg (26.0-34.0); MCHC 31.9 g/dL (31.0-37.0); MONOCYTES 6.1 % (2-11); NEUTROPHILS 66.9 % (40-80); RBC 3.39 10x6/uL (4.00-5.40); RDW 16.7 % (11.5-14.5); WBC 18.9 10x3/uL (4.8-10.8)
[2018-02-04 06:28] LABS: MCV 101.8 fL (80.0-100.0); PLATELET COUNT 4 10x3/uL (130-400)
[2018-02-04 06:48] LABS: CALC OSMOLALITY 278 mosm/kg (275-300); CALCIUM 8.5 mg/dL (8.5-10.1); CARBON DIOXIDE 31.4 mmol/L (21.0-32.0); CHLORIDE - SERUM 105 mmol/L (98-107); CREATININE - SERUM 0.7 mg/dL (0.6-1.3); GLUCOSE 100 mg/dL (74-106); POTASSIUM - SERUM 4.7 mmol/L (3.5-5.1); SODIUM 139 mmol/L (136-145); UREA NITROGEN 16 mg/dL (7-18); eGFR NON AFRICAN AMERICAN 89 mL/min (90-120)
[2018-02-05 04:49] LABS: HEMATOCRIT 35.8 % (36.0-48.0); HEMOGLOBIN 11.6 g/dL (12-16); MCH 32.7 pg (26.0-34.0); MCHC 32.4 g/dL (31.0-37.0); MCV 100.8 fL (80.0-100.0); RBC 3.55 10x6/uL (4.00-5.40); RDW 16.4 % (11.5-14.5); WBC 21.3 10x3/uL (4.8-10.8)
[2018-02-05 04:51] LABS: BASOPHILS 0.1 % (0-2); EOSINOPHILS 0 % (0-7); IMMATURE GRANULOCYTES 5.9 % (0-5); LYMPHOCYTES 9.5 % (15-50); MONOCYTES 3.6 % (2-11); NEUTROPHILS 80.9 % (40-80); PLATELET COUNT 6 10x3/uL (130-400)
[2018-02-05 05:00] VITALS: BP 119/64
[2018-02-05 05:01] VITALS: BP 19/64
[2018-02-05 05:02] LABS: CALC OSMOLALITY 282 mosm/kg (275-300); CALCIUM 8.9 mg/dL (8.5-10.1); CARBON DIOXIDE 27.3 mmol/L (21.0-32.0); CHLORIDE - SERUM 104 mmol/L (98-107); CREATININE - SERUM 0.7 mg/dL (0.6-1.3); GLUCOSE 143 mg/dL (74-106); POTASSIUM - SERUM 4.7 mmol/L (3.5-5.1); SODIUM 140 mmol/L (136-145); UREA NITROGEN 18 mg/dL (7-18); eGFR NON AFRICAN AMERICAN 89 mL/min (90-120)
[2018-02-05 08:43] VITALS: BP 130/70
[2018-02-05 12:30] VITALS: BP 138/84
[2018-02-05 16:52] VITALS: BP 114/76
[2018-02-05 20:00] VITALS: BP 132/85
[2018-02-06 04:00] VITALS: BP 125/70
[2018-02-06 06:42] LABS: HEMATOCRIT 34.8 % (36.0-48.0); HEMOGLOBIN 11.3 g/dL (12-16); MCH 32.7 pg (26.0-34.0); MCHC 32.5 g/dL (31.0-37.0); MCV 100.6 fL (80.0-100.0); RBC 3.46 10x6/uL (4.00-5.40); RDW 16.9 % (11.5-14.5); WBC 20.7 10x3/uL (4.8-10.8)
[2018-02-06 06:44] LABS: ALBUMIN 2.8 g/dL (3.4-5.0); ALKALINE PHOSPHATASE 59 U/L (46-116); ALT (SGPT) 132 U/L (10-68); BILIRUBIN - TOTAL 0.28 mg/dL (0.2-1.3); CALC OSMOLALITY 281 mosm/kg (275-300); CALCIUM 8.6 mg/dL (8.5-10.1); CARBON DIOXIDE 30.8 mmol/L (21.0-32.0); CHLORIDE - SERUM 104 mmol/L (98-107); CREATININE - SERUM 0.6 mg/dL (0.6-1.3); GLUCOSE 102 mg/dL (74-106); PLATELET COUNT 5 10x3/uL (130-400); POTASSIUM - SERUM 4.3 mmol/L (3.5-5.1); PROTEIN - SERUM 6.2 g/dL (6.4-8.2); SODIUM 140 mmol/L (136-145); UREA NITROGEN 20 mg/dL (7-18); eGFR NON AFRICAN AMERICAN > 90 mL/min (90-120)
[2018-02-06 08:42] LABS: LYMPHOCYTES 25 % (15-50); MONOCYTES 4 % (2-11); NEUTROPHILS 68 % (40-80); PLATELET ESTIMATE DECREASED
[2018-02-06 09:37] VITALS: BP 112/69
[2018-02-06 16:42] VITALS: BP 112/73
[2018-02-06 19:51] VITALS: BP 116/71
[2018-02-07 04:00] VITALS: BP 135/78
[2018-02-07 04:28] LABS: BASOPHILS 0.3 % (0-2); EOSINOPHILS 0.5 % (0-7); HEMOGLOBIN 11.7 g/dL (12-16); IMMATURE GRANULOCYTES 7.1 % (0-5); LYMPHOCYTES 19.4 % (15-50); MCH 32.8 pg (26.0-34.0); MCHC 32.5 g/dL (31.0-37.0); MCV 100.8 fL (80.0-100.0); MONOCYTES 5.6 % (2-11); NEUTROPHILS 67.1 % (40-80); RBC 3.57 10x6/uL (4.00-5.40); RDW 16.6 % (11.5-14.5); WBC 19.7 10x3/uL (4.8-10.8)
[2018-02-07 04:29] LABS: PLATELET COUNT 4 10x3/uL (130-400)
[2018-02-07 04:57] LABS: ALBUMIN 2.8 g/dL (3.4-5.0); ALKALINE PHOSPHATASE 59 U/L (46-116); ALT (SGPT) 147 U/L (10-68); BILIRUBIN - TOTAL 0.27 mg/dL (0.2-1.3); CALC OSMOLALITY 279 mosm/kg (275-300); CALCIUM 8.5 mg/dL (8.5-10.1); CARBON DIOXIDE 28.5 mmol/L (21.0-32.0); CHLORIDE - SERUM 103 mmol/L (98-107); CREATININE - SERUM 0.7 mg/dL (0.6-1.3); GLUCOSE 92 mg/dL (74-106); POTASSIUM - SERUM 4.4 mmol/L (3.5-5.1); PROTEIN - SERUM 6.4 g/dL (6.4-8.2); SODIUM 139 mmol/L (136-145); UREA NITROGEN 18 mg/dL (7-18); eGFR NON AFRICAN AMERICAN 89 mL/min (90-120)
[2018-02-07 09:22] VITALS: BP 131/76
[2018-02-07 15:23] VITALS: BP 112/67
[2018-02-07 19:56] VITALS: BP 98/58
[2018-02-08] VITALS (7 sets, daily range): BP systolic 103–134; BP diastolic 53–82
[2018-02-08 05:56] LABS: HEMATOCRIT 35.6 % (36.0-48.0); HEMOGLOBIN 11.4 g/dL (12-16); MCH 32.2 pg (26.0-34.0); MCV 100.6 fL (80.0-100.0); RBC 3.54 10x6/uL (4.00-5.40); RDW 16.7 % (11.5-14.5); WBC 21.3 10x3/uL (4.8-10.8)
[2018-02-08 05:57] LABS: BASOPHILS 0.5 % (0-2); EOSINOPHILS 0.8 % (0-7); IMMATURE GRANULOCYTES 8.2 % (0-5); LYMPHOCYTES 19.1 % (15-50); MONOCYTES 5.5 % (2-11); NEUTROPHILS 65.9 % (40-80); PLATELET COUNT 4 10x3/uL (130-400)
[2018-02-08 06:03] LABS: ALBUMIN 2.7 g/dL (3.4-5.0); ALKALINE PHOSPHATASE 57 U/L (46-116); ALT (SGPT) 114 U/L (10-68); BILIRUBIN - TOTAL 0.25 mg/dL (0.2-1.3); CALC OSMOLALITY 281 mosm/kg (275-300); CALCIUM 8.3 mg/dL (8.5-10.1); CARBON DIOXIDE 30.1 mmol/L (21.0-32.0); CHLORIDE - SERUM 106 mmol/L (98-107); CREATININE - SERUM 0.6 mg/dL (0.6-1.3); GLUCOSE 91 mg/dL (74-106); POTASSIUM - SERUM 4.2 mmol/L (3.5-5.1); PROTEIN - SERUM 6.2 g/dL (6.4-8.2); SODIUM 140 mmol/L (136-145); UREA NITROGEN 22 mg/dL (7-18); eGFR NON AFRICAN AMERICAN > 90 mL/min (90-120)
[2018-02-09 04:36] VITALS: BP 142/81
[2018-02-09 05:49] LABS: ALBUMIN 2.7 g/dL (3.4-5.0); ALKALINE PHOSPHATASE 54 U/L (46-116); ALT (SGPT) 88 U/L (10-68); BILIRUBIN - TOTAL 0.23 mg/dL (0.2-1.3); CALC OSMOLALITY 286 mosm/kg (275-300); CALCIUM 8.3 mg/dL (8.5-10.1); CARBON DIOXIDE 27.8 mmol/L (21.0-32.0); CHLORIDE - SERUM 107 mmol/L (98-107); CREATININE - SERUM 0.7 mg/dL (0.6-1.3); GLUCOSE 108 mg/dL (74-106); POTASSIUM - SERUM 4.1 mmol/L (3.5-5.1); PROTEIN - SERUM 6.1 g/dL (6.4-8.2); SODIUM 142 mmol/L (136-145); UREA NITROGEN 22 mg/dL (7-18); eGFR NON AFRICAN AMERICAN 89 mL/min (90-120)
[2018-02-09 06:20] LABS: HEMATOCRIT 35.1 % (36.0-48.0); HEMOGLOBIN 11.3 g/dL (12-16); MCH 32.3 pg (26.0-34.0); MCHC 32.2 g/dL (31.0-37.0); MCV 100.3 fL (80.0-100.0); WBC 21.1 10x3/uL (4.8-10.8)
[2018-02-09 06:21] LABS: BASOPHILS 0.5 % (0-2); IMMATURE GRANULOCYTES 8.6 % (0-5); LYMPHOCYTES 16.6 % (15-50); MONOCYTES 4.8 % (2-11); NEUTROPHILS 68.5 % (40-80); PLATELET COUNT 5 10x3/uL (130-400)
[2018-02-09 08:26] VITALS: BP 122/72
[2018-02-09 12:00] VITALS: BP 139/69
[2018-02-09 16:09] VITALS: BP 96/45
[2018-02-09 21:21] VITALS: BP 109/68
[2018-02-10 05:05] LABS: HEMATOCRIT 36.5 % (36.0-48.0); HEMOGLOBIN 11.7 g/dL (12-16); MCH 32.2 pg (26.0-34.0); MCHC 32.1 g/dL (31.0-37.0); MCV 100.6 fL (80.0-100.0); RBC 3.63 10x6/uL (4.00-5.40); RDW 16.8 % (11.5-14.5); WBC 24.1 10x3/uL (4.8-10.8)
[2018-02-10 05:06] LABS: BASOPHILS 0.5 % (0-2); EOSINOPHILS 0.5 % (0-7); IMMATURE GRANULOCYTES 8.1 % (0-5); LYMPHOCYTES 11.7 % (15-50); MONOCYTES 4.7 % (2-11); NEUTROPHILS 74.5 % (40-80); PLATELET COUNT 8 10x3/uL (130-400)
[2018-02-10 05:08] LABS: ALBUMIN 2.7 g/dL (3.4-5.0); ALKALINE PHOSPHATASE 55 U/L (46-116); ALT (SGPT) 88 U/L (10-68); BILIRUBIN - TOTAL 0.23 mg/dL (0.2-1.3); CALC OSMOLALITY 280 mosm/kg (275-300); CALCIUM 8.6 mg/dL (8.5-10.1); CARBON DIOXIDE 28.2 mmol/L (21.0-32.0); CHLORIDE - SERUM 105 mmol/L (98-107); CREATININE - SERUM 0.7 mg/dL (0.6-1.3); GLUCOSE 106 mg/dL (74-106); POTASSIUM - SERUM 4.5 mmol/L (3.5-5.1); PROTEIN - SERUM 6.3 g/dL (6.4-8.2); SODIUM 139 mmol/L (136-145); UREA NITROGEN 20 mg/dL (7-18); eGFR NON AFRICAN AMERICAN 89 mL/min (90-120)
[2018-02-10 05:10] VITALS: BP 149/86
[2018-02-10 08:30] VITALS: BP 131/79
[2018-02-10 12:45] VITALS: BP 106/67
[2018-02-10 20:49] VITALS: BP 124/75
[2018-02-11 04:35] VITALS: BP 121/75
[2018-02-11 08:49] VITALS: BP 120/79
[2018-02-11 09:17] LABS: HEMATOCRIT 37.8 % (36.0-48.0); HEMOGLOBIN 12.2 g/dL (12-16); MCH 32.4 pg (26.0-34.0); MCHC 32.3 g/dL (31.0-37.0); MCV 100.3 fL (80.0-100.0); RBC 3.77 10x6/uL (4.00-5.40); RDW 16.8 % (11.5-14.5)
[2018-02-11 09:18] LABS: BASOPHILS 0.6 % (0-2); EOSINOPHILS 0.7 % (0-7); IMMATURE GRANULOCYTES 8.9 % (0-5); LYMPHOCYTES 16.9 % (15-50); MONOCYTES 4.9 % (2-11)
[2018-02-11 09:20] LABS: PLATELET COUNT 11 10x3/uL (130-400)
[2018-02-11 16:45] VITALS: BP 118/74
[2018-02-11 21:05] VITALS: BP 110/63
[2018-02-12 04:35] VITALS: BP 124/84
[2018-02-12 04:46] LABS: HEMATOCRIT 37.6 % (36.0-48.0); MCH 31.8 pg (26.0-34.0); MCHC 31.9 g/dL (31.0-37.0); MCV 99.7 fL (80.0-100.0); RBC 3.77 10x6/uL (4.00-5.40); RDW 16.7 % (11.5-14.5); WBC 23.5 10x3/uL (4.8-10.8)
[2018-02-12 04:48] LABS: BASOPHILS 0.4 % (0-2); EOSINOPHILS 0.6 % (0-7); IMMATURE GRANULOCYTES 8.2 % (0-5); LYMPHOCYTES 11.2 % (15-50); MEAN PLATELET VOLUME 11.6 fL (7.4-10.4); MONOCYTES 6.2 % (2-11); NEUTROPHILS 73.4 % (40-80); PLATELET COUNT 9 10x3/uL (130-400)
[2018-02-12 04:53] LABS: ALBUMIN 2.6 g/dL (3.4-5.0); ALKALINE PHOSPHATASE 49 U/L (46-116); ALT (SGPT) 67 U/L (10-68); BILIRUBIN - TOTAL 0.21 mg/dL (0.2-1.3); CALC OSMOLALITY 281 mosm/kg (275-300); CALCIUM 8.1 mg/dL (8.5-10.1); CARBON DIOXIDE 28.8 mmol/L (21.0-32.0); CHLORIDE - SERUM 104 mmol/L (98-107); CREATININE - SERUM 0.8 mg/dL (0.6-1.3); GLUCOSE 108 mg/dL (74-106); POTASSIUM - SERUM 4.2 mmol/L (3.5-5.1); PROTEIN - SERUM 6.2 g/dL (6.4-8.2); SODIUM 139 mmol/L (136-145); UREA NITROGEN 20 mg/dL (7-18); eGFR NON AFRICAN AMERICAN 76 mL/min (90-120)
[2018-02-12 08:21] VITALS: BP 140/86
[2018-02-12 12:12] VITALS: BP 120/74
[2018-02-12 12:36] VITALS: BP 120/74
[2018-02-12 16:30] VITALS: BP 105/63
[2018-02-12 20:24] VITALS: BP 120/65
[2018-02-13 05:02] VITALS: BP 110/69
[2018-02-13 05:45] LABS: HEMATOCRIT 37.3 % (36.0-48.0); MCH 32.1 pg (26.0-34.0); MCHC 32.2 g/dL (31.0-37.0); MCV 99.7 fL (80.0-100.0); RBC 3.74 10x6/uL (4.00-5.40); RDW 16.8 % (11.5-14.5)
[2018-02-13 05:46] LABS: BASOPHILS 0.3 % (0-2); EOSINOPHILS 0.5 % (0-7); IMMATURE GRANULOCYTES 7.7 % (0-5); LYMPHOCYTES 13.4 % (15-50); MONOCYTES 5.3 % (2-11); NEUTROPHILS 72.8 % (40-80); PLATELET COUNT 11 10x3/uL (130-400)
[2018-02-13 08:33] VITALS: BP 117/71
[2018-02-13 12:45] VITALS: BP 128/76
[2018-02-13 17:17] VITALS: BP 113/71
[2018-02-13 21:08] VITALS: BP 134/69
[2018-02-14 04:08] LABS: HEMOGLOBIN 12.2 g/dL (12-16); MCHC 32.1 g/dL (31.0-37.0); MCV 99.7 fL (80.0-100.0); RBC 3.81 10x6/uL (4.00-5.40); RDW 16.7 % (11.5-14.5); WBC 22.1 10x3/uL (4.8-10.8)
[2018-02-14 04:09] LABS: BASOPHILS 0.4 % (0-2); EOSINOPHILS 0.6 % (0-7); IMMATURE GRANULOCYTES 8.1 % (0-5); LYMPHOCYTES 13.9 % (15-50); MONOCYTES 5.9 % (2-11); NEUTROPHILS 71.1 % (40-80); PLATELET COUNT 7 10x3/uL (130-400)
[2018-02-14 05:16] VITALS: BP 141/73
[2018-02-14 09:38] VITALS: BP 127/55
[2018-02-14 13:20] VITALS: BP 118/68
[2018-02-14 20:00] VITALS: BP 126/75
[2018-02-15] VITALS: BP 109/70
[2018-02-15 04:00] VITALS: BP 121/72
[2018-02-15 05:41] LABS: HEMATOCRIT 37.6 % (36.0-48.0); HEMOGLOBIN 12.4 g/dL (12-16); MCH 32.8 pg (26.0-34.0); MCV 99.5 fL (80.0-100.0); RBC 3.78 10x6/uL (4.00-5.40); RDW 16.5 % (11.5-14.5)
[2018-02-15 05:42] LABS: BASOPHILS 0.4 % (0-2); EOSINOPHILS 0.1 % (0-7); IMMATURE GRANULOCYTES 8.7 % (0-5); LYMPHOCYTES 8.5 % (15-50); MONOCYTES 4.7 % (2-11); NEUTROPHILS 77.6 % (40-80); PLATELET COUNT 8 10x3/uL (130-400)
[2018-02-15 07:55] VITALS: BP 115/69
[2018-02-15] MEDS ORDERED: BENADRYL25 MG PO (10:42)
[2018-02-15] MEDS ORDERED: MIRALAX17 GM PO (10:43)
[2018-02-15] MEDS ORDERED: Nystatin Oral Susp [ PO (10:45)
[2018-02-15] MEDS ORDERED: [UNRECOGNIZED DRUG - OTHER] PO (10:45)
[2018-02-15] MEDS ORDERED: Saline Mist NASAL SP NASAL (10:45)
[2018-02-15 10:54] LABS: ALBUMIN 2.7 g/dL (3.4-5.0); ALKALINE PHOSPHATASE 51 U/L (46-116); ALT (SGPT) 83 U/L (10-68); BILIRUBIN - TOTAL 0.14 mg/dL (0.2-1.3); CALC OSMOLALITY 281 mosm/kg (275-300); CALCIUM 8.3 mg/dL (8.5-10.1); CARBON DIOXIDE 27.3 mmol/L (21.0-32.0); CHLORIDE - SERUM 105 mmol/L (98-107); CREATININE - SERUM 0.6 mg/dL (0.6-1.3); GLUCOSE 120 mg/dL (74-106); POTASSIUM - SERUM 4.2 mmol/L (3.5-5.1); PROTEIN - SERUM 6.2 g/dL (6.4-8.2); SODIUM 139 mmol/L (136-145); UREA NITROGEN 20 mg/dL (7-18); eGFR NON AFRICAN AMERICAN > 90 mL/min (90-120)
== END 2018-02-15 12:23 | disposition home or self-care (01) | DRG 813 ==
LOC: D.ER 21:09 → D.MS 01-27 01:37 → OBSVTIME 01-27 01:37 → D.MS 01-27 01:37
PROVIDERS: Emergency Medicine; Family Medicine; Internal Medicine Nephrology
PROC: 2Y41X5Z Packing of Nasal Region using Packing Material (ICD-10-PCS; principal; 2018-01-27)
DX: D69.3 Immune thrombocytopenic purpura (principal); R04.0 Epistaxis; E03.9 Hypothyroidism, unspecified; D69.2 Other nonthrombocytopenic purpura; K59.00 Constipation, unspecified; S00.83XA Contusion of other part of head, initial encounter; R21 Rash and other nonspecific skin eruption

== ENCOUNTER 2018-03-05 13:27 | Outpatient (CLI) | payer MEDICARE, OTHER ==
[~2018-03-05] VITALS: Ht 165.1 cm; Wt 97.7 kg
[~2018-03-05 13:27] MED LIST changes: +BENADRYL25 MG PO; +Nystatin Oral Susp [ PO; +Saline Mist NASAL SP NASAL; +[UNRECOGNIZED DRUG - OTHER] PO
[2018-03-05 14:15] VITALS: BP 140/49; Ht 165.1 cm; Wt 97.7 kg
== END 2018-03-05 14:20 | disposition home or self-care (01) ==
LOC: D.OPS 13:27
DX: Z09 Encounter for follow-up examination after completed treatment for conditions other than malignant neoplasm (principal)

== ENCOUNTER 2018-04-06 10:26 | Outpatient (CLI) | payer MEDICARE, OTHER ==
[~2018-04-06] VITALS: Ht 165.1 cm; Wt 90.9 kg
[2018-04-06 12:52] VITALS: BP 108/73; Ht 165.1 cm; Wt 90.9 kg
== END 2018-04-06 11:45 ==
LOC: D.OPS 10:26
DX: Z08 Encounter for follow-up examination after completed treatment for malignant neoplasm (principal)

== ENCOUNTER 2018-04-14 15:47 | Inpatient (IN) | payer MEDICARE, OTHER ==
[~2018-04-14] VITALS: Ht 165.1 cm; Wt 104.3 kg
[2018-04-14 16:30] VITALS: BP 113/69
[2018-04-14 16:43] LABS: BASOPHILS 0.4 % (0-2); EOSINOPHILS 1.1 % (0-7); HEMATOCRIT 34.1 % (36.0-48.0); HEMOGLOBIN 11.1 g/dL (12-16); IMMATURE GRANULOCYTES 1.4 % (0-5); MCH 29.8 pg (26.0-34.0); MCHC 32.6 g/dL (31.0-37.0); MCV 91.7 fL (80.0-100.0); MEAN PLATELET VOLUME 9.5 fL (7.4-10.4); MONOCYTES 0.7 % (2-11); NEUTROPHILS 87.4 % (40-80); RBC 3.72 10x6/uL (4.00-5.40); RDW 15.6 % (11.5-14.5); WBC 16.9 10x3/uL (4.8-10.8)
[2018-04-14 16:45] VITALS: BP 116/72
[2018-04-14 16:46] LABS: PLATELET COUNT 998 10x3/uL (130-400)
[2018-04-14 16:55] LABS: APPEARANCE CLEAR (CLEAR); BILIRUBIN NEGATIVE (NEGATIVE); COLOR YELLOW (YELLOW); GLUCOSE NEGATIVE (NEGATIVE); KETONE NEGATIVE (NEGATIVE); NITRITE POSITIVE (NEGATIVE); PROTEIN NEGATIVE (NEGATIVE); SPECIFIC GRAVITY 1.015 (1.005-1.020); UROBILINOGEN NORMAL (NORMAL)
[2018-04-14 16:56] LABS: BACTERIA MANY /hpf (NONE SEEN); EPITHELIAL CELLS 0-5 /hpf (0-5); RED CELLS - URINE OCC /hpf (0-5); WHITE CELLS - URINE 25-50 /hpf (0-5)
--- NOTE | 2018-04-14 17:07 | NUR ---
LAB CALLED 2.1 LACTIC ACID
[2018-04-14 17:13] LABS: BILIRUBIN - TOTAL 0.34 mg/dL (0.2-1.3); CALCIUM 8.3 mg/dL (8.5-10.1); CARBON DIOXIDE 20.8 mmol/L (21.0-32.0); CREATININE - SERUM 0.9 mg/dL (0.6-1.3); MAGNESIUM - SERUM 1.3 mg/dL (1.8-2.4); POTASSIUM - SERUM 3.8 mmol/L (3.5-5.1); PROTEIN - SERUM 6.9 g/dL (6.4-8.2); THYROID STIMULATING HORMONE 1.09 uIU/mL (0.36-3.74); TROPONIN-I 0.016 ng/mL (0.000-0.060)
--- NOTE | 2018-04-14 18:40 | MORECARE ---
CASE MANAGEMENT DISCHARGE SUMMARY PATIENT: MICHELLE WALTER UNIT: [id number] ADM DATE: 04/14/18 AGE: 67 : 51 SEX: F ROOM/BED: D.1211 AUTHOR: ANDERSON LUGO PHYSICIAN: REFERRING PHYSICIAN: JOEL ADLER MD DATE OF SERVICE: 04/14/18 Discharge Plan Patient Name: MICHELLE WALTER Facility: [facility]:[place] : 1950 Planned Disposition: Anticipated Discharge Date: Discharge Date: Expected LOS: Initial Reviewer: [id number] Initial Review Date: 04/14/2018 Generated: 04/14/18 7:39 pm Patient Name: MICHELLE WALTER Page 79439 at 1840 All edits/amendments must be made on the electronic document DICTATION DATE: 04/14/181838 ETHNOLOGY TEACHER: EDWIGE 04/14/181838 RPT#: [id number] [place] DATE: STATUS: ADM IN [facility] [address] [place] [address] END OF REPORT
--- NOTE | 2018-04-14 18:59 | MORECARE ---
CASE MANAGEMENT DISCHARGE SUMMARY PATIENT: MICHELLE LOVELACE UNIT: [id number] ADM DATE: 04/14/18 AGE: 67 : 51 SEX: F ROOM/BED: D.1211 AUTHOR: ANDERSON LUGO PHYSICIAN: REFERRING PHYSICIAN: JOEL ADLER MD DATE OF SERVICE: 04/14/18 Discharge Plan Patient Name: MICHELLE LOVELACE [facility] : 1950 Planned Disposition: Anticipated Discharge Date: Discharge Date: Expected LOS: Initial Reviewer: [email or web address] Initial Review Date: 04/14/2018 Generated: 04/14/18 7:59 pm Comments DCP- Discharge Planning Updated by [email or web address]: Nilam Watkins on 04/14/18 5:[address] CM met with patient in ER to discuss discharge needs/plans. Patient gives permission to speak with spouse, Ilia Lovelace #[phone]. Alert/oriented. Lives in house w/spouse, has 4 steps w/railing entering home. PCP: Dr. Sweeney. Pharmacy: [facility] on [facility] and his been able to obtain all medications ODD TICKET CLERK. Independent with ADL's. DME: None. HHS: None. Uses no community resources. Denies need of additional services at this time. Spouse will drive patient home upon discharge. CM will follow and assist with dc needs/plans PRN. Nilam Watkins RN, CM Last DP export: 04/14/18 5:40 Patient Name: MICHELLE LOVELACE Page [id number] at 1859 All edits/amendments must be made on the electronic document DICTATION DATE: 04/14/181857 ASSISTANT FOREMAN: EDWIGE 04/14/181857 RPT#: [id number] DC DATE: STATUS: ADM IN [facility] [address] [place] [address] END OF REPORT
--- NOTE | 2018-04-14 23:30 | NUR ---
RECEIVED PATIENT FROM ED. LCAILS X2, BED IN LOW POSITION WITH CALL LIGHT WITHIN REACH. ASSESSMENT, HISTORY, AND MED REC COMPLETED. THE PATIENT WAS EDUCATED ON USE OF HER CALL LIGHT AND DEMONSTRATED UNDERSTANDING VIA TEACHBACK METHOD. THE PATIENT HAS NO QUESTIONS AT THIS TIME.
[2018-04-15] VITALS (7 sets, daily range): BP systolic 81–109; BP diastolic 43–61
--- NOTE | 2018-04-15 04:54 | NUR ---
THE PATIENT APPEARS TO BE SLEEPING. CALL LIGHT WITHIN REACH.
--- NOTE | 2018-04-15 10:25 | NUR ---
PT PRN TYLENOL GIVEN REQUESTED. WCTM.
[2018-04-15 15:59] LABS: WBC 20.1 10x3/uL (4.8-10.8)
[2018-04-15 16:00] LABS: HEMATOCRIT 28.5 % (36.0-48.0); MCH 29.5 pg (26.0-34.0); MCHC 31.6 g/dL (31.0-37.0); MCV 93.4 fL (80.0-100.0); MEAN PLATELET VOLUME 9.5 fL (7.4-10.4); PLATELET COUNT 929 10x3/uL (130-400); RBC 3.05 10x6/uL (4.00-5.40)
[2018-04-15 16:04] LABS: ALBUMIN 2.1 g/dL (3.4-5.0); ALKALINE PHOSPHATASE 63 U/L (46-116); ALT (SGPT) 41 U/L (10-68); BILIRUBIN - TOTAL 0.17 mg/dL (0.2-1.3); CALC OSMOLALITY 288 mosm/kg (275-300); CALCIUM 7.3 mg/dL (8.5-10.1); CARBON DIOXIDE 25.2 mmol/L (21.0-32.0); CHLORIDE - SERUM 111 mmol/L (98-107); CREATININE - SERUM 0.7 mg/dL (0.6-1.3); GLUCOSE 110 mg/dL (74-106); POTASSIUM - SERUM 3.6 mmol/L (3.5-5.1); PROTEIN - SERUM 5.3 g/dL (6.4-8.2); SODIUM 145 mmol/L (136-145); UREA NITROGEN 11 mg/dL (7-18); eGFR NON AFRICAN AMERICAN 89 mL/min (90-120)
[2018-04-15 16:21] LABS: EOSINOPHILS 1 % (0-7); LYMPHOCYTES 26 % (15-50); MONOCYTES 2 % (2-11); NEUTROPHILS 64 % (40-80); PLATELET ESTIMATE INCREASED
[2018-04-15 16:22] LABS: PLATELET MORPHOLOGY GIANT PLTS PRESENT; ROULEAUX 3+
--- NOTE | 2018-04-15 19:01 | NUR ---
DEONNA SOSA TELEPHONE ORDER FOR MELATONIN 6MG QHS PLACED.
--- NOTE | 2018-04-15 19:10 | NUR ---
RESUME CARE. PT IN BED A&O NO C/O PICC LINE DRG CLEAN DRY INTACTED NO C/O AT THIS TIME CALL LIGHT IN REACH WILL CONT TO MYKE
--- NOTE | 2018-04-15 20:20 | NUR ---
LAB CALLED WILL CRITICAL LAB.. BLOOD CULTURE GRAM POSITIVE FOR SUNNY/BACILLI, PAGED ANNA Henderson, STATED SHE WOOULD F/U IN THE MORNING
[2018-04-16] VITALS: BP 109/63
[2018-04-16 04:00] VITALS: BP 108/49
--- NOTE | 2018-04-16 04:01 | NUR ---
PRN TYLENOL GIVEN
[2018-04-16 06:38] LABS: ALKALINE PHOSPHATASE 57 U/L (46-116); ALT (SGPT) 35 U/L (10-68); BILIRUBIN - TOTAL 0.13 mg/dL (0.2-1.3); CALCIUM 7.1 mg/dL (8.5-10.1); CARBON DIOXIDE 22.5 mmol/L (21.0-32.0); CHLORIDE - SERUM 114 mmol/L (98-107); CREATININE - SERUM 0.6 mg/dL (0.6-1.3); GLUCOSE 101 mg/dL (74-106); POTASSIUM - SERUM 3.8 mmol/L (3.5-5.1); PROTEIN - SERUM 5.1 g/dL (6.4-8.2); SODIUM 146 mmol/L (136-145); eGFR NON AFRICAN AMERICAN > 90 mL/min (90-120)
[2018-04-16 06:45] LABS: CALC OSMOLALITY 288 mosm/kg (275-300); UREA NITROGEN 7 mg/dL (7-18)
[2018-04-16 06:59] LABS: EOSINOPHILS 5.9 % (0-7); HEMOGLOBIN 8.7 g/dL (12-16); IMMATURE GRANULOCYTES 0.8 % (0-5); LYMPHOCYTES 12.7 % (15-50); MCH 29.4 pg (26.0-34.0); MCHC 31.1 g/dL (31.0-37.0); MCV 94.6 fL (80.0-100.0); MEAN PLATELET VOLUME 9.5 fL (7.4-10.4); MONOCYTES 10.4 % (2-11); NEUTROPHILS 69.2 % (40-80); PLATELET COUNT 915 10x3/uL (130-400); RBC 2.96 10x6/uL (4.00-5.40); RDW 16.2 % (11.5-14.5)
[2018-04-16 07:02] LABS: WBC 13.3 10x3/uL (4.8-10.8)
--- NOTE | 2018-04-16 08:49 | NUR ---
PT AM MEDS ADMINISTERED. PT DENIES NEEDS. WCTM.
[2018-04-16 09:20] VITALS: BP 115/67; BP 151/81
--- NOTE | 2018-04-16 11:40 | NUR ---
PRETTY REMOVED PER NURSE PROTOCOL, CATH TIP INTACT.
[2018-04-16 13:45] VITALS: BMI 38.2
[2018-04-16 14:41] VITALS: BP 124/60; BP 135/73
[2018-04-16 16:12] VITALS: BP 112/68
[2018-04-16 19:10] VITALS: Ht 165.1 cm; Wt 104.3 kg
--- NOTE | 2018-04-16 19:36 | NUR ---
RECEIVED REPORT. SITTING UP IN BED ALERT AND ORIENTED X4. DENIES ANY NEEDS C/O MILD HEAD DISCOMFORT REQUESTED TYLENOL AND ADMINISTERED PER ORDER. RR EVEN AND UNLABORED. CALL LIGHT WITHIN REACH, FALL PRECAUTIONS IN PLACE.
[2018-04-16 20:00] VITALS: BP 114/60
[2018-04-16 21:46] LABS: APPEARANCE CLEAR (CLEAR); BILIRUBIN NEGATIVE (NEGATIVE); COLOR YELLOW (YELLOW); GLUCOSE NEGATIVE (NEGATIVE); KETONE NEGATIVE (NEGATIVE); NITRITE NEGATIVE (NEGATIVE); PROTEIN NEGATIVE (NEGATIVE); UROBILINOGEN NORMAL (NORMAL)
[2018-04-16 21:48] LABS: BACTERIA FEW /hpf (NONE SEEN); EPITHELIAL CELLS 0-5 /hpf (0-5); RED CELLS - URINE 0-5 /hpf (0-5); WHITE CELLS - URINE 0-5 /hpf (0-5)
--- NOTE | 2018-04-16 23:40 | NUR ---
LYING IN BED SUPINE EYES CLOSED RESTING. RR EVEN AND UNLABORED. CALL LIGHT WITHIN REACH, FALL PRECAUTIONS IN PLACE
[2018-04-17] VITALS: BP 108/57
--- NOTE | 2018-04-17 00:17 | NUR ---
NURSE IN ROOM WITH PT AT THIS TIME ADMINISTERING MEDS. NO DISTRESS. CL IN REACH.
--- NOTE | 2018-04-17 01:44 | NUR ---
LYING IN BED ON RIGHT SIDE EYES CLOSED RESTING. RR EVEN AND UNLABORED. CALL LIGHT WITHIN REACH
[2018-04-17 04:00] VITALS: BP 105/59
--- NOTE | 2018-04-17 05:05 | NUR ---
SITTING UP IN BED ALERT AND ORIENTED X4. DENIES ANY NEEDS OR PAIN. RR EVEN AND UNLABORED. CALL LIGHT WITHIN REACH
[2018-04-17 07:35] LABS: BASOPHILS 1.8 % (0-2); EOSINOPHILS 7.4 % (0-7); HEMATOCRIT 27.9 % (36.0-48.0); HEMOGLOBIN 8.7 g/dL (12-16); IMMATURE GRANULOCYTES 0.8 % (0-5); LYMPHOCYTES 14.5 % (15-50); MCH 29.6 pg (26.0-34.0); MCHC 31.2 g/dL (31.0-37.0); MCV 94.9 fL (80.0-100.0); MEAN PLATELET VOLUME 9.8 fL (7.4-10.4); MONOCYTES 9.9 % (2-11); NEUTROPHILS 65.6 % (40-80); PLATELET COUNT 928 10x3/uL (130-400); RBC 2.94 10x6/uL (4.00-5.40); WBC 11.7 10x3/uL (4.8-10.8)
[2018-04-17 07:45] LABS: ALKALINE PHOSPHATASE 55 U/L (46-116); ALT (SGPT) 27 U/L (10-68); CALC OSMOLALITY 288 mosm/kg (275-300); CALCIUM 7.4 mg/dL (8.5-10.1); CARBON DIOXIDE 23.9 mmol/L (21.0-32.0); CHLORIDE - SERUM 113 mmol/L (98-107); CREATININE - SERUM 0.7 mg/dL (0.6-1.3); GLUCOSE 87 mg/dL (74-106); POTASSIUM - SERUM 3.8 mmol/L (3.5-5.1); PROTEIN - SERUM 5.1 g/dL (6.4-8.2); SODIUM 147 mmol/L (136-145); UREA NITROGEN 7 mg/dL (7-18); eGFR NON AFRICAN AMERICAN 89 mL/min (90-120)
--- NOTE | 2018-04-17 07:45 | NUR ---
ASSESSMENT COMPLETE. R PICC LINE PATENT. DENIES ANY NEEDS AT THIS TIME.
[2018-04-17 11:33] VITALS: BP 121/62
--- NOTE | 2018-04-17 12:00 | NUR ---
NO NEEDS VOICED AT THIS TIME.
[2018-04-17 16:41] VITALS: BP 105/57
--- NOTE | 2018-04-17 17:00 | NUR ---
RESTING QUIETLY IN BED.
[2018-04-17 19:40] VITALS: BP 132/82
--- NOTE | 2018-04-17 19:54 | NUR ---
RECIEVED UP AMBULATING AROUND ROOM. ALERT AND 0RIENTED X4. PICC LINE TO RIGHT UPPER ARM INTACT WITH NS INFUSING AT 30ML/HR. PARTIAL AMPUTATION TO RIGHT FOOT. DENIES ANY NEEDS AT THIS TIME. WILL CONT. POC.
[2018-04-17 23:55] VITALS: BP 107/56
[2018-04-18 03:45] VITALS: BP 140/76
[2018-04-18 05:09] LABS: BASOPHILS 1.8 % (0-2); EOSINOPHILS 6.7 % (0-7); HEMATOCRIT 32.6 % (36.0-48.0); HEMOGLOBIN 10.3 g/dL (12-16); IMMATURE GRANULOCYTES 1.1 % (0-5); LYMPHOCYTES 19.6 % (15-50); MCH 29.3 pg (26.0-34.0); MCHC 31.6 g/dL (31.0-37.0); MEAN PLATELET VOLUME 9.5 fL (7.4-10.4); MONOCYTES 8.3 % (2-11); NEUTROPHILS 62.5 % (40-80); RBC 3.52 10x6/uL (4.00-5.40); RDW 15.9 % (11.5-14.5); WBC 10.4 10x3/uL (4.8-10.8)
[2018-04-18 05:23] LABS: ALBUMIN 2.4 g/dL (3.4-5.0); ALKALINE PHOSPHATASE 62 U/L (46-116); ALT (SGPT) 30 U/L (10-68); BILIRUBIN - TOTAL 0.18 mg/dL (0.2-1.3); CALC OSMOLALITY 284 mosm/kg (275-300); CALCIUM 8.6 mg/dL (8.5-10.1); CARBON DIOXIDE 28.9 mmol/L (21.0-32.0); CHLORIDE - SERUM 109 mmol/L (98-107); CREATININE - SERUM 0.6 mg/dL (0.6-1.3); GLUCOSE 86 mg/dL (74-106); POTASSIUM - SERUM 4.2 mmol/L (3.5-5.1); PROTEIN - SERUM 5.8 g/dL (6.4-8.2); SODIUM 145 mmol/L (136-145); UREA NITROGEN 5 mg/dL (7-18); eGFR NON AFRICAN AMERICAN > 90 mL/min (90-120)
[2018-04-18 05:25] LABS: MCV 92.6 fL (80.0-100.0)
[2018-04-18 05:26] LABS: PLATELET COUNT 1010 10x3/uL (130-400)
[2018-04-18 07:26] VITALS: BP 118/59
--- NOTE | 2018-04-18 07:40 | NUR ---
ASSESSMENT COMPLETE. R PICC PATENT. DENIES ANY NEEDS AT THIS TIME.
--- NOTE | 2018-04-18 11:10 | MORECARE ---
CASE MANAGEMENT DISCHARGE SUMMARY PATIENT: MICHELLE LOVELACE UNIT: [id number] ADM DATE: 04/14/18 AGE: 67 : 51 SEX: F ROOM/BED: D.1211 AUTHOR: ANDERSON LUGO PHYSICIAN: REFERRING PHYSICIAN: JOEL ADLER MD DATE OF SERVICE: 04/18/18 Discharge Plan Patient Name: MICHELLE LOVELACE Facility: [facility]:[place] : 1950 Planned Disposition: Anticipated Discharge Date: Discharge Date: Expected LOS: Initial Reviewer: [email or web address] Initial Review Date: 04/14/2018 Generated: 04/18/18 12:10 pm Comments DCP- Discharge Planning Updated by [id number]: Tracee Emmanuel on 04/18/18 10:[address] Patient Name: MICHELLE LOVELACE Admission Status: ER Accout number: [id number] Admission Date: 04-14-2018 : 1950 Admission Diagnosis:SEPSIS, UNSPECIFIED ORGANISM Attending: JOEL ADLER Current LOS: 4 Anticipated DC Date: Planned Disposition: Primary Insurance: MEDICARE A & B Discharge Planning Comments: CM MET WITH PATIENT AND SPOUSE (CARMELLA) REGARDING D/C NEEDS AND PLANS. PATIENT STATED HER SPOUSE WILL DRIVE HER HOME AT DISCHARGE. PATIENT STATED THERE ARE 4 STEPS TO ENTER HER HOME AND NO STAIRS ONCE INSIDE. PATIENT IS INDEPENDENT WITH HER CARE AND HAS NO DME AT HOME. PATIENTS PCP IS DR. ALMAZAN AND USES [facility] ON [address] FOR HER PHARMACY. PATIENT REFUSED HOME HEALTH. CM WILL CONTINUE TO FOLLOW PATIENT WITH D/C NEEDS AND PLANS. [facility] [address] [facility] CARMELLA (SPOUSE) [phone] Console Attendant: Tracee Emmanuel DCP- Discharge Planning Updated by [id number]: Nilam Watkins on 04/14/18 5:[address] CM met with patient in ER to discuss discharge needs/plans. Patient gives permission to speak with spouse, Carmella Lovelace #[phone]. Alert/oriented. Lives in house w/spouse, has 4 steps w/railing entering home. PCP: Dr. Almazan. Pharmacy: [facility] on [address] and his been able to obtain all medications SUBSTATION OPERATOR APPRENTICE. Independent with ADL's. DME: None. HHS: None. Uses no community resources. Denies need of additional services at this time. Spouse will drive patient home upon discharge. CM will follow and assist with dc needs/plans PRN. Nilam Watkins RN CM DCPIA - Discharge Planning Initial Assessment Updated by [email or web address]: Tracee Emmanuel on 04/18/18 11:07 am * Is the patient Alert and Oriented? Yes * How many steps to enter\exit or inside your home? * PCP DR. ALMAZAN * [facility] * Preadmission Environment Home with Family * ADLs Independent * Equipment None * List name and contact numbers for known caregivers / representatives who currently or will assist patient after discharge: CARMELLA LOVELACE (SPOUSE) [phone] * Verbal permission to speak to the caregivers and representatives has been obtained from the patient. Yes * Community resources currently utilized None * Additional services required to return to the preadmission environment? Yes * Can the patient safely return to the preadmission environment? Yes * Has this patient been hospitalized within the prior 30 days at any hospital? No Last DP export: 04/14/18 5:59 Patient Name: MICHELLE LOVELACE Page [phone] at 1110 All edits/amendments must be made on the electronic document DICTATION DATE: 04/18/181108 RETAIL HELPER: EDWIGE 04/18/181108 RPT#: [id number] DC DATE: STATUS: ADM IN [facility] [address] [place] [address] END OF REPORT
--- NOTE | 2018-04-18 11:15 | NUR ---
TYLENOL GIVEN FOR HEADACHE. VISITING WITH FAMILY. DENIES ANY FURTHER NEEDS AT THIS TIME.
[2018-04-18 11:40] VITALS: BP 119/72
[2018-04-18 16:29] VITALS: BP 127/69
--- NOTE | 2018-04-18 19:11 | NUR ---
RECIEVED UP IN BED WITH EYES OPEN AND TV ON. ALERT AND ORIENTEED X4. DENIES ANY NEEDS OR PAIN. WILL CONT. POC.
[2018-04-18 20:00] VITALS: BP 123/72
[2018-04-19] VITALS: BP 110/60
[2018-04-19 04:00] VITALS: BP 128/74
[2018-04-19 07:03] LABS: BASOPHILS 1.7 % (0-2); EOSINOPHILS 5.5 % (0-7); HEMATOCRIT 31.7 % (36.0-48.0); HEMOGLOBIN 10.2 g/dL (12-16); MCH 29.2 pg (26.0-34.0); MCHC 32.2 g/dL (31.0-37.0); MCV 90.8 fL (80.0-100.0); MEAN PLATELET VOLUME 9.2 fL (7.4-10.4); MONOCYTES 6.6 % (2-11); NEUTROPHILS 70.2 % (40-80); PLATELET COUNT 864 10x3/uL (130-400); RBC 3.49 10x6/uL (4.00-5.40); RDW 15.7 % (11.5-14.5); WBC 12.2 10x3/uL (4.8-10.8)
[2018-04-19 07:22] LABS: ALBUMIN 2.3 g/dL (3.4-5.0); ALKALINE PHOSPHATASE 56 U/L (46-116); ALT (SGPT) 29 U/L (10-68); BILIRUBIN - TOTAL 0.19 mg/dL (0.2-1.3); CALCIUM 7.9 mg/dL (8.5-10.1); CARBON DIOXIDE 27.2 mmol/L (21.0-32.0); CHLORIDE - SERUM 108 mmol/L (98-107); CREATININE - SERUM 0.7 mg/dL (0.6-1.3); GLUCOSE 84 mg/dL (74-106); POTASSIUM - SERUM 3.8 mmol/L (3.5-5.1); PROTEIN - SERUM 6.1 g/dL (6.4-8.2); SODIUM 146 mmol/L (136-145); eGFR NON AFRICAN AMERICAN 89 mL/min (90-120)
[2018-04-19 07:25] LABS: CALC OSMOLALITY 287 mosm/kg (275-300); UREA NITROGEN 8 mg/dL (7-18)
--- NOTE | 2018-04-19 07:30 | NUR ---
REC'D IN BED AWAKE AND ALERT. RESP EVEN AND UNLABORED WITH NO DISTRESS NOTED. CAN EXPRESS NEEDS AND WANTS. ASSESSMENT COMPLETED. C/L IN REACH.
--- NOTE | 2018-04-19 12:44 | NUR ---
RESTING QUIETLY IN BED EATING LUNCH. DENIES NEEDS.
[2018-04-19 16:06] VITALS: BP 118/61
[2018-04-19 16:20] VITALS: BP 123/69
--- NOTE | 2018-04-19 19:13 | NUR ---
RECIEVED UP IN BED WITH EYES OPEN AND TV ON. ALERT AND ORIENTED X4. IV TO LEFT UPPER ARM WITH NS AT 30/HR. DENIES ANY NEEDWS OR PAIN. WILL CONT. POC.
[2018-04-19 20:00] VITALS: BP 127/66
[2018-04-20] VITALS: BP 113/56
[2018-04-20 04:00] VITALS: BP 123/58
[2018-04-20 06:18] LABS: BASOPHILS 1.5 % (0-2); EOSINOPHILS 4.9 % (0-7); HEMATOCRIT 34.1 % (36.0-48.0); IMMATURE GRANULOCYTES 1.4 % (0-5); LYMPHOCYTES 13.1 % (15-50); MCH 29.6 pg (26.0-34.0); MCHC 32.3 g/dL (31.0-37.0); MCV 91.7 fL (80.0-100.0); MEAN PLATELET VOLUME 8.9 fL (7.4-10.4); MONOCYTES 6.7 % (2-11); NEUTROPHILS 72.4 % (40-80); PLATELET COUNT 766 10x3/uL (130-400); RBC 3.72 10x6/uL (4.00-5.40); RDW 15.8 % (11.5-14.5); WBC 14.4 10x3/uL (4.8-10.8)
[2018-04-20 06:33] LABS: ALBUMIN 2.5 g/dL (3.4-5.0); ALKALINE PHOSPHATASE 60 U/L (46-116); ALT (SGPT) 35 U/L (10-68); BILIRUBIN - TOTAL 0.21 mg/dL (0.2-1.3); CALCIUM 8.7 mg/dL (8.5-10.1); CARBON DIOXIDE 25.5 mmol/L (21.0-32.0); CHLORIDE - SERUM 106 mmol/L (98-107); CREATININE - SERUM 0.8 mg/dL (0.6-1.3); GLUCOSE 94 mg/dL (74-106); SODIUM 142 mmol/L (136-145); eGFR NON AFRICAN AMERICAN 76 mL/min (90-120)
[2018-04-20 06:34] LABS: CALC OSMOLALITY 282 mosm/kg (275-300); POTASSIUM - SERUM 4.4 mmol/L (3.5-5.1); UREA NITROGEN 13 mg/dL (7-18)
--- NOTE | 2018-04-20 07:45 | NUR ---
ASSESSMENT COMPLETE. L PICC PATENT. DENIES ANY NEEDS AT THIS TIME.
[2018-04-20 08:28] VITALS: BP 123/56
[2018-04-20 14:30] VITALS: BP 110/64
--- NOTE | 2018-04-20 15:22 | NUR ---
NO CHANGES NOTED AT THIS TIME.
[2018-04-20 16:03] VITALS: BP 102/56
--- NOTE | 2018-04-20 19:45 | NUR ---
PT RESTING IN BED WATCHING TV. PT IS AAO, UP AD WANG. PT DENIES ANY NEEDS. NO S/S OF DISTRESS. BEDLOW AND CALL LIGHT IN REACH. NAME AND DATE PLACED ON BOARD. WILL CPOC
[2018-04-20 20:00] VITALS: BP 116/62
[2018-04-21] VITALS: BP 113/67
--- NOTE | 2018-04-21 00:36 | NUR ---
PT ASLEEP. RESP EVEN AND UNLABORED. NO S/S OF DISTRESS. WILL CPOC
[2018-04-21 04:00] VITALS: BP 118/65
--- NOTE | 2018-04-21 06:52 | NUR ---
PT GIVEN MORNING MEDS. PT ASKING ABOUT BLOOD WORK WILL CHECK ORDERS. PT HAS NO S/S OF DISTRESS. DENIES ANY NEEDS. WILL CPOC
[2018-04-21 07:45] VITALS: BP 103/58
[2018-04-21] MEDS ORDERED: LEVAQUIN750 MG PO (08:16)
[2018-04-21] MEDS ORDERED: DIFLUCAN100 MG PO (08:16)
--- NOTE | 2018-04-21 08:45 | NUR ---
NILS RODRIGUEZ AT BEDSIDE TO ASSESS PT. PT DENIES ANY OTHER NEEDS AT THIS TIME. CALL LIGHT IN REACH, NAD NOTED, WILL CONTINUE TO MONITOR.
--- NOTE | 2018-04-21 10:25 | NUR ---
PT RESTING IN BED. NO SIGNS OF DISTRESS. IV TO LEFT UPPER ARM PATENT NO REDNESS OR TENDERNESS. DENIES ANY PAIN AT THIS TIME OR ANY OTHER NEED AT THIS TIME. CALL LIGHT IN REACH. BED LOW POSITION. FAMILY AT BEDSIDE.
--- NOTE | 2018-04-21 11:23 | MORECARE ---
CASE MANAGEMENT DISCHARGE SUMMARY PATIENT: MICHELLE LOVELACE UNIT: [id number] ADM DATE: 04/14/18 AGE: 67 : 51 SEX: F ROOM/BED: D.1211 AUTHOR: ANDERSON LUGO PHYSICIAN: REFERRING PHYSICIAN: JOEL ADLER MD DATE OF SERVICE: 04/21/18 Discharge Plan Patient Name: MICHELLE LOVELACE Facility: [facility]:[place] : 1950 Planned Disposition: Anticipated Discharge Date: Discharge Date: Expected LOS: Initial Reviewer: [email or web address] Initial Review Date: 04/14/2018 Generated: 04/21/18 12:23 pm Comments DCP- Discharge Planning Updated by [id number]: Cary Partida on 04/21/18 10:[address] Patient Name: MICHELLE LOVELACE Encounter No: [id number] : 1950 Primary Insurance: MEDICARE A & B Anticipated DC Date: Planned Disposition: External Planned Provider: : DCP follow-up note: Patient in agreement with discharge plan. No changes to plan. Case management will follow and assist as needed. CM explained and served DC IMM. Cary Partida DCP- Discharge Planning Updated by [id number]: Tracee Emmanuel on 04/18/18 10:[address] Patient Name: MICHELLE LOVELACE Admission Status: ER Accout number: [id number] Admission Date: 04-14-2018 : 1950 Admission Diagnosis:SEPSIS, UNSPECIFIED ORGANISM Attending: JOEL ADLER Current LOS: 4 Anticipated DC Date: Planned Disposition: Primary Insurance: MEDICARE A & B Discharge Planning Comments: CM MET WITH PATIENT AND SPOUSE (CARMELLA) REGARDING D/C NEEDS AND PLANS. PATIENT STATED HER SPOUSE WILL DRIVE HER HOME AT DISCHARGE. PATIENT STATED THERE ARE 4 STEPS TO ENTER HER HOME AND NO STAIRS ONCE INSIDE. PATIENT IS INDEPENDENT WITH HER CARE AND HAS NO DME AT HOME. PATIENTS PCP IS DR. ALMAZAN AND USES [facility] FOR HER PHARMACY. PATIENT REFUSED HOME HEALTH. CM WILL CONTINUE TO FOLLOW PATIENT WITH D/C NEEDS AND PLANS. [facility] CARMELLA (SPOUSE) [phone] Body Engineer: Tracee Cholo DCP- Discharge Planning Updated by [id number]: Nilam Watkins on 04/14/18 5:[address] CM met with patient in ER to discuss discharge needs/plans. Patient gives permission to speak with spouse, Carmella Lovelace #[phone]. Alert/oriented. Lives in house w/spouse, has 4 steps w/railing entering home. PCP: Dr. Almazan. Pharmacy: [facility] on [address] and his been able to obtain all medications TOWBOAT CAPTAIN. Independent with ADL's. DME: None. HHS: None. Uses no community resources. Denies need of additional services at this time. Spouse will drive patient home upon discharge. CM will follow and assist with dc needs/plans PRN. Nilam Watkins RN, CM DCPIA - Discharge Planning Initial Assessment Updated by [id number]: Tracee Emmanuel on 04/18/18 11:07 am * Is the patient Alert and Oriented? Yes * How many steps to enter\exit or inside your home? * PCP DR. ALMAZAN * Pharmacy [facility] * Preadmission Environment Home with Family * ADLs Independent * Equipment None * List name and contact numbers for known caregivers / representatives who currently or will assist patient after discharge: CARMELLA LOVELACE (SPOUSE) [phone] * Verbal permission to speak to the caregivers and representatives has been obtained from the patient. Yes * Community resources currently utilized None * Additional services required to return to the preadmission environment? Yes * Can the patient safely return to the preadmission environment? Yes * Has this patient been hospitalized within the prior 30 days at any hospital? No Coverage Notice Reviewer: [email or web address] Karina Partida Notice Issued Date-Time: 04/21/2018 11:16 Notice Type: IM Discharge Notice Notice Delivered To: Patient Relationship to Patient: Self Special Equipment Technician Name: Delivery Method: HAND - Hand Delivered Ira Days: Prior Verbal Notification: Recipient Understood Notice: Yes Recipient Signature: Yes Med Rec Note Co-signed by Attending: Coverage Notice Comment: Last DP export: 04/18/18 10:10 Patient Name: MICHELLE LOVELACE Page 39884 at 1123 All edits/amendments must be made on the electronic document DICTATION DATE: 04/21/181121 CONDENSER TUBE TENDER: EDWIGE 04/21/181121 RPT#: [id number] DC DATE: STATUS: ADM IN [facility] [address] [place] [address] END OF REPORT
--- NOTE | 2018-04-21 11:57 | NUR ---
DISCHARGE INSTRUCTIONS GIVEN. NO SIGNS OF DISTRESS. LEFT UPPER ARM PICC WAS LEFT IN PLACE PER DR. TITI CALDERON. SEEMS TO UNDERSTAND INTRUCTIONS. PT STATED WANTED TO WALK OUT. DENIES ANY NEED AT THIS TIME. GOING TO HOME IN PERSONAL RIDE.
--- NOTE | 2018-04-21 13:40 | MORECARE ---
CASE MANAGEMENT DISCHARGE SUMMARY PATIENT: MICHELLE LOVELACE UNIT: [id number] ADM DATE: 04/14/18 AGE: 67 : 51 SEX: F ROOM/BED: D.1211 AUTHOR: ANDERSON LUGO PHYSICIAN: REFERRING PHYSICIAN: JOEL ADLER MD DATE OF SERVICE: 04/21/18 Discharge Plan Patient Name: MICHELLE LOVELACE Facility: [facility]:[place] : 1950 Planned Disposition: Home Anticipated Discharge Date: 04/21/18 Discharge Date: 04/21/2018 Expected LOS: 7 Initial Reviewer: [email or web address] Initial Review Date: 04/14/2018 Generated: 04/21/18 2:40 pm Comments DCP- Discharge Planning Updated by [email or web address]: Cary Partida on 04/21/18 10:[address] Patient Name: MICHELLE LOVELACE Encounter No: [id number] : 1950 Primary Insurance: MEDICARE A & B Anticipated DC Date: Planned Disposition: External Planned Provider: : DCP follow-up note: Patient in agreement with discharge plan. No changes to plan. Case management will follow and assist as needed. CM explained and served DC IMM. Cary Partida DCP- Discharge Planning Updated by [id number]: Tracee Emmanuel on 04/18/18 10:[address] Patient Name: MICHELLE LOVELACE Admission Status: ER Accout number: [id number] Admission Date: 04-14-2018 : 1950 Admission Diagnosis:SEPSIS, UNSPECIFIED ORGANISM Attending: JOEL ADLER Current LOS: 4 Anticipated DC Date: Planned Disposition: Primary Insurance: MEDICARE A & B Discharge Planning Comments: CM MET WITH PATIENT AND SPOUSE (CARMELLA) REGARDING D/C NEEDS AND PLANS. PATIENT STATED HER SPOUSE WILL DRIVE HER HOME AT DISCHARGE. PATIENT STATED THERE ARE 4 STEPS TO ENTER HER HOME AND NO STAIRS ONCE INSIDE. PATIENT IS INDEPENDENT WITH HER CARE AND HAS NO DME AT HOME. PATIENTS PCP IS DR. ALMAZAN AND [facility]. PATIENT REFUSED HOME HEALTH. CM WILL CONTINUE TO FOLLOW PATIENT WITH D/C NEEDS AND PLANS. [facility] CARMELLA (SPOUSE) [phone] Associate Principal: Tracee Emmanuel DCP- Discharge Planning Updated by [id number]: Nilam Watkins on 04/14/18 5:[address] CM met with patient in ER to discuss discharge needs/plans. Patient gives permission to speak with spouse, Carmella Lovelace #[phone]. Alert/oriented. Lives in house w/spouse, has 4 steps w/railing entering home. PCP: Dr. Almazan. Pharmacy: [facility] [address] and his been able to obtain all medications [employer] NON MEDICAL. Independent with ADL's. DME: None. HHS: None. Uses no community resources. Denies need of additional services at this time. Spouse will drive patient home upon discharge. CM will follow and assist with dc needs/plans PRN. Nilam Watkins RN, CM DCPIA - Discharge Planning Initial Assessment Updated by [email or web address]: Tracee Emmanuel on 04/18/18 11:07 am * Is the patient Alert and Oriented? Yes * How many steps to enter\exit or inside your home? * PCP DR. ALMAZAN * [facility] * Preadmission Environment Home with Family * ADLs Independent * Equipment None * List name and contact numbers for known caregivers / representatives who currently or will assist patient after discharge: CARMELLA LOVELACE (SPOUSE) [phone] * Verbal permission to speak to the caregivers and representatives has been obtained from the patient. Yes * Community resources currently utilized None * Additional services required to return to the preadmission environment? Yes * Can the patient safely return to the preadmission environment? Yes * Has this patient been hospitalized within the prior 30 days at any hospital? No Coverage Notice Reviewer: [email or web address] Karina Partida Notice Issued Date-Time: 04/21/2018 11:16 Notice Type: IM Discharge Notice Notice Delivered To: Patient Relationship to Patient: Self Enterprise Application Administrator Name: Delivery Method: HAND - Hand Delivered Ira Days: Prior Verbal Notification: Recipient Understood Notice: Yes Recipient Signature: Yes Med Rec Note Co-signed by Attending: Coverage Notice Comment: Last DP export: 04/21/18 10:23 am Patient Name: MICHELLE LOVELACE Page 45445 at 1340 All edits/amendments must be made on the electronic document DICTATION DATE: 04/21/18 1340 FACING SLITTER: EDWIGE 04/21/18 1340 RPT#: [id number] DC DATE:04/21/18 STATUS: DIS IN [facility] [address] [place] [address] END OF REPORT
[2018-04-22 18:08] LABS: AEROBE ID Final report (())
== END 2018-04-21 11:58 | disposition home or self-care (01) | DRG 314 ==
LOC: D.ER 15:47 → D.EDHOLD 17:59 → D.M3 17:59
PROVIDERS: Family Medicine; Student in an Organized Health Care Education/Training Program; ADMIT Emergency Medicine
PROC: 02HV33Z Insertion of Infusion Device into Superior Vena Cava, Percutaneous Approach (ICD-10-PCS; principal; 2018-04-19)
PROC: B548ZZA Ultrasonography of Superior Vena Cava, Guidance (ICD-10-PCS; 2018-04-19)
DX: T80.211A Bloodstream infection due to central venous catheter, initial encounter (principal); A41.9 Sepsis, unspecified organism; N39.0 Urinary tract infection, site not specified; D69.3 Immune thrombocytopenic purpura; E87.0 Hyperosmolality and hypernatremia; D64.9 Anemia, unspecified; E03.9 Hypothyroidism, unspecified

== ENCOUNTER → 2018-05-12 14:10 | Outpatient (CLI) | payer MEDICARE, OTHER ==
[~2018-05-12] VITALS: Ht 165.1 cm; Wt 104.5 kg
[~2018-05-12 14:10] MED LIST changes: +LEVAQUIN750 MG PO
[2018-05-12 14:46] VITALS: BP 136/76; Ht 165.1 cm; Wt 104.5 kg
--- NOTE | 2018-05-12 14:52 | NUR ---
CHERYL MUNOZ AT BEDSIDE AT THIS TIME CHANGING PT DRESSING AT THIS TIME, USING STERILE TECHNIQUE AND CENTRAL LINE DRESSING KIT. SITE APPEARS HEALTHY, NO REDNESS, SWELLING, OR DISCHARGE NOTED AT SITE. PT TOLERATED WELL.
--- NOTE | 2018-05-12 14:55 | NUR ---
CHERYL RN AT BEDSIDE AT THIS TIME DOING PT DRESSING CHANGE, USING STERILE TECHNIQUE AND CENTRAL LINE DRESSING KIT. AREA AROUND SITE LOOKS CLEAN, NO REDNESS, SWELLING, OR DISCHARGE NOTED AT SITE AT THIS TIME. PT TOLERATED WELL.
== END | disposition home or self-care (01) ==
LOC: D.OPS 14:10
DX: Z48.00 Encounter for change or removal of nonsurgical wound dressing (principal)

== ENCOUNTER → 2018-05-20 19:59 | Outpatient (CLI) | payer MEDICARE, OTHER ==
[2018-05-12 14:46] VITALS: BMI 38.3
== END | disposition home or self-care (01) ==
LOC: D.MAMMO 10:00
DX: Z85.3 Personal history of malignant neoplasm of breast (principal)

== ENCOUNTER 2018-05-26 14:21 | Outpatient (CLI) | payer MEDICARE, OTHER ==
[~2018-05-26] VITALS: Ht 165.1 cm; Wt 104.5 kg
[2018-05-26 15:34] VITALS: BP 134/80; Ht 165.1 cm; Wt 104.5 kg
== END 2018-05-26 15:40 | disposition home or self-care (01) ==
LOC: D.OPS 14:21
DX: Z48.00 Encounter for change or removal of nonsurgical wound dressing (principal)

== ENCOUNTER 2018-06-09 14:36 | Outpatient (CLI) | payer MEDICARE, OTHER ==
[~2018-06-09] VITALS: Ht 165.1 cm; Wt 90.9 kg
[2018-06-09 16:17] VITALS: Ht 165.1 cm; Wt 90.9 kg
--- NOTE | 2018-06-09 16:20 | NUR ---
1550 PT 2518 FOR PICC LINE DRESSING CHANGE LEFT ARM. NO REDNESS, PT. STATES WAS JUST FLUSHED AT DR'S OFFICE TODAY. HAS TAPE AROUND 3 SIDES. PICC LINE DRESSING CHANGE PER PROTOCOL ASEPTIC TECHNIQUE COVERED WITH OCCLUSIVE DRESSING. RELEASED AMB.
== END 2018-06-09 16:05 | disposition home or self-care (01) ==
LOC: D.OPS 14:36
DX: Z48.00 Encounter for change or removal of nonsurgical wound dressing (principal); D69.3 Immune thrombocytopenic purpura

== ENCOUNTER 2018-06-18 10:41 | Outpatient (CLI) | payer MEDICARE, OTHER ==
[~2018-06-18] VITALS: Ht 165.1 cm; Wt 97.7 kg
[2018-06-18 11:33] LABS: EOSINOPHILS 6.3 % (0-7); HEMATOCRIT 34.4 % (36.0-48.0); HEMOGLOBIN 11.1 g/dL (12-16); IMMATURE GRANULOCYTES 0.4 % (0-5); LYMPHOCYTES 25.8 % (15-50); MCH 26.2 pg (26.0-34.0); MCHC 32.3 g/dL (31.0-37.0); MCV 81.3 fL (80.0-100.0); MEAN PLATELET VOLUME 8.4 fL (7.4-10.4); MONOCYTES 11.1 % (2-11); NEUTROPHILS 54.4 % (40-80); RBC 4.23 10x6/uL (4.00-5.40); RDW 16.5 % (11.5-14.5); WBC 7.1 10x3/uL (4.8-10.8)
[2018-06-18 11:34] LABS: APTT 23.9 SECONDS (22.8-39.4); INR 1.01 (0.85-1.17); PROTIME 12.8 SECONDS (11.6-15.0)
[2018-06-18 11:37] LABS: PLATELET COUNT 450 10x3/uL (130-400)
[2018-06-18 11:55] LABS: CALC OSMOLALITY 285 mosm/kg (275-300); CALCIUM 8.9 mg/dL (8.5-10.1); CARBON DIOXIDE 22.1 mmol/L (21.0-32.0); CHLORIDE - SERUM 108 mmol/L (98-107); CREATININE - SERUM 0.7 mg/dL (0.6-1.3); GLUCOSE 89 mg/dL (74-106); POTASSIUM - SERUM 4.1 mmol/L (3.5-5.1); SODIUM 143 mmol/L (136-145); UREA NITROGEN 17 mg/dL (7-18); eGFR NON AFRICAN AMERICAN 89 mL/min (90-120)
[2018-06-18 12:21] VITALS: Ht 165.1 cm; Wt 97.7 kg
--- NOTE | 2018-06-18 16:05 | NUR ---
BOB DC'D WITH TIP INTACT, PATIENT DRESSING IN PERSONAL CLOTHING 1610 DISCHARGE INSTRUCTIONS REVIEWED WITH PATIENT AND SPOUSE, DISCHARGED HOME VIA WHEELCHAIR TO PRIVATE VEHICLE WITH SPOUSE
== END 2018-06-18 16:10 | disposition home or self-care (01) ==
LOC: D.SP 10:41 → D.CT 13:00 → D.SP 13:00
PROVIDERS: General Practice; ATTEND Internal Medicine Hematology & Oncology
DX: D64.9 Anemia, unspecified (principal); D69.6 Thrombocytopenia, unspecified; Z01.812 Encounter for preprocedural laboratory examination

== ENCOUNTER 2018-06-30 10:36 | Outpatient (CLI) | payer MEDICARE, OTHER ==
[~2018-06-30] VITALS: Ht 165.1 cm; Wt 97.7 kg
[2018-06-30 10:57] VITALS: BP 110/68; Ht 165.1 cm; Wt 97.7 kg
== END 2018-06-30 11:25 | disposition home or self-care (01) ==
LOC: D.OPS 10:36
PROVIDERS: ATTEND Internal Medicine Hematology & Oncology
DX: D69.3 Immune thrombocytopenic purpura (principal)

== ENCOUNTER 2018-07-13 14:31 | Outpatient (CLI) | payer MEDICARE, OTHER ==
[~2018-07-13] VITALS: Ht 165.1 cm; Wt 97.7 kg
[2018-07-13 16:18] VITALS: BP 134/87; Ht 165.1 cm; Wt 97.7 kg
--- NOTE | 2018-07-13 17:03 | NUR ---
1630 PICC LINE DRESSING CHANGE DONE USING ASEPTIC TECHNIQUE. AREA AROUND CATHETER INSERTION SITE IS RED BUT NO SIGNS OF DRAINAGE. PT STATES IT IS STARTING TO GET TENDER TO TOUCH. SHE STATES SHE IS DUE TO HAVE IT DC'D NEXT WEEK BUT WILL CALL DR YANES TOMORROW TO LET THEM KNOW IT IS GETTING TENDER AND RED.
== END 2018-07-13 17:05 | disposition home or self-care (01) ==
LOC: D.OPS 14:31
PROVIDERS: ATTEND Internal Medicine Hematology & Oncology
DX: D69.3 Immune thrombocytopenic purpura (principal)

== ENCOUNTER 2018-07-20 11:03 | Outpatient (CLI) | payer MEDICARE, OTHER ==
[~2018-07-20] VITALS: Ht 165.1 cm; Wt 97.7 kg
[2018-07-20 12:43] VITALS: BP 126/72; Ht 165.1 cm; Wt 97.7 kg
== END 2018-07-20 12:55 | disposition home or self-care (01) ==
LOC: D.OPS 11:03
PROVIDERS: ATTEND Internal Medicine Hematology & Oncology
DX: D59.1 Other autoimmune hemolytic anemias (principal)

== ENCOUNTER → 2019-03-15 13:30 | Outpatient (CLI) | payer MEDICARE, OTHER ==
[2018-07-20 12:43] VITALS: BMI 35.8
== END | disposition home or self-care (01) ==
LOC: D.MAMMO 13:00
PROVIDERS: ATTEND Internal Medicine Hematology & Oncology
DX: C50.112 Malignant neoplasm of central portion of left female breast (principal)

== ENCOUNTER → 2019-06-20 12:40 | Outpatient (CLI) | payer MEDICARE, OTHER ==
[~2019-06-20] VITALS: Ht 165.1 cm; Wt 95.5 kg
[2019-06-20 14:19] VITALS: Ht 165.1 cm; Wt 95.5 kg
== END | disposition home or self-care (01) ==
LOC: D.OPS 12:00
PROVIDERS: ATTEND Internal Medicine Hematology & Oncology
DX: D69.3 Immune thrombocytopenic purpura (principal)

== ENCOUNTER 2019-06-24 13:04 | Outpatient (CLI) | payer MEDICARE, OTHER ==
[~2019-06-24] VITALS: Ht 165.1 cm; Wt 93.2 kg
[2019-06-24 14:49] VITALS: BP 121/75; Ht 165.1 cm; Wt 93.2 kg
== END 2019-06-24 15:55 | disposition home or self-care (01) ==
LOC: D.OPS 13:04
PROVIDERS: ATTEND Internal Medicine Hematology & Oncology
DX: D69.3 Immune thrombocytopenic purpura (principal)

== ENCOUNTER 2019-06-27 13:26 | Outpatient (CLI) | payer MEDICARE, OTHER ==
[~2019-06-27] VITALS: Ht 165.1 cm; Wt 96.4 kg
[2019-06-27 15:43] VITALS: Ht 165.1 cm; Wt 96.4 kg
--- NOTE | 2019-06-27 17:07 | NUR ---
1700 PICC LINE FLUSHED AND ALCOHOL CAP APPLIED
== END 2019-06-27 17:08 | disposition home or self-care (01) ==
LOC: D.OPS 13:26
PROVIDERS: ATTEND Internal Medicine Hematology & Oncology
DX: D69.3 Immune thrombocytopenic purpura (principal)

== ENCOUNTER 2019-07-25 13:08 | Outpatient (CLI) | payer MEDICARE, OTHER ==
[2019-06-27 15:43] VITALS: BMI 35.3
--- NOTE | 2019-07-25 14:05 | NUR ---
1355-line removed per Sandra Jimenes, Vasular stock driver. Site looks infected with greenish/brown at insertion site and on dressing. 1400-call in to Dr. Bedolla to report findings.
--- NOTE | 2019-07-25 15:10 | NUR ---
1455-R ARM PICC SITE SWABBED FOR CULTURE. LEEROY CALLED IN TO [facility] ON [address]. 1500-ESCORTED TO LAB FOR BLOOD CULTURE TO BE DRAWN. DISCHARGE INSTRUCTIONS REVIEWED.
== END 2019-07-25 15:00 | disposition home or self-care (01) ==
LOC: D.OPS 13:08
PROVIDERS: ATTEND Internal Medicine Hematology & Oncology
DX: D69.3 Immune thrombocytopenic purpura (principal)

== ENCOUNTER 2019-08-08 11:06 | Emergency (ER) | payer MEDICARE, OTHER ==
[~2019-08-08] VITALS: Ht 165.1 cm; Wt 95.5 kg
[2019-08-08 11:13] VITALS: Ht 165.1 cm; Wt 95.5 kg
[2019-08-08 11:39] LABS: HEMATOCRIT 40.5 % (36.0-48.0); HEMOGLOBIN 13.3 g/dL (12-16); MCH 32.4 pg (26.0-34.0); MCHC 32.8 g/dL (31.0-37.0); MCV 98.8 fL (80.0-100.0); MEAN PLATELET VOLUME 12.4 fL (7.4-10.4); RDW 16.3 % (11.5-14.5); WBC 17.1 10x3/uL (4.8-10.8)
[2019-08-08 11:40] LABS: PLATELET COUNT 293 10x3/uL (130-400)
[2019-08-08 11:54] LABS: ANION GAP 16.8 mmol/L (8-16); CALCIUM 9.4 mg/dL (8.5-10.1); CARBON DIOXIDE 19.7 mmol/L (21.0-32.0); CREATININE - SERUM 1.3 mg/dL (0.6-1.3); POTASSIUM - SERUM 4.5 mmol/L (3.5-5.1)
[2019-08-08 11:59] LABS: ALBUMIN 3.9 g/dL (3.4-5.0); BILIRUBIN - TOTAL 0.35 mg/dL (0.2-1.3); MAGNESIUM - SERUM 1.8 mg/dL (1.8-2.4); PROTEIN - SERUM 8.2 g/dL (6.4-8.2); THYROID STIMULATING HORMONE 8.77 uIU/mL (0.36-3.74)
[2019-08-08 11:59] LABS: BILIRUBIN NEGATIVE (NEGATIVE); GLUCOSE NEGATIVE (NEGATIVE); KETONE NEGATIVE (NEGATIVE); NITRITE NEGATIVE (NEGATIVE); UROBILINOGEN NORMAL (NORMAL)
[2019-08-08 12:03] LABS: EOSINOPHILS 5 % (0-7); LYMPHOCYTES 14 % (15-50); MONOCYTES 5 % (2-11); NEUTROPHILS 74 % (40-80); PLATELET ESTIMATE NORMAL
[2019-08-08 12:05] LABS: AMORPHOUS SEDIMENT <1+ /lpf (NONE SEEN); BACTERIA FEW /hpf (NEGATIVE); EPITHELIAL CELLS 0-5 /hpf (0-5); HYALINE CAST 0-5 /lpf (NONE SEEN); RED CELLS - URINE 0-5 /hpf (0-5); WHITE CELLS - URINE 0-5 /hpf (NEGATIVE)
[2019-08-08 12:52] LABS: CKMB 1.1 U/L (0.0-3.6)
[2019-08-08 12:53] LABS: TROPONIN-I < 0.017 ng/mL (0.000-0.060)
[2019-08-08 16:40] LABS: APPEARANCE - CSF CLEAR
[2019-08-08 16:56] LABS: RBC - CSF 3 cmm (0-0)
[2019-08-08 17:30] LABS: GLUCOSE - CSF 59 MG/DL (40-75); PROTEIN - CSF 92 MG/DL (12-60)
[2019-08-08 17:59] LABS: NEUT - CSF 2 % (0-6)
[2019-08-08 18:02] LABS: LYMPH - CSF 96 % (40-80)
[2019-08-08 18:03] LABS: MONO - CSF 2 % (15-45)
[2019-08-08 23:33] VITALS: BP 162/97
== END 2019-08-08 23:33 | disposition other institution (70) ==
LOC: D.ER 11:06
PROVIDERS: Emergency Medicine
DX: R53.1 Weakness (principal); R20.0 Anesthesia of skin; E86.0 Dehydration; E87.1 Hypo-osmolality and hyponatremia; D72.829 Elevated white blood cell count, unspecified; R00.0 Tachycardia, unspecified; E03.9 Hypothyroidism, unspecified; G62.9 Polyneuropathy, unspecified; D69.3 Immune thrombocytopenic purpura